=== PATIENT | male | born 1945 | race Caucasian/White ===

== ENCOUNTER 2017-02-08 15:23 | Inpatient (IN) | payer MEDICARE, OTHER ==
[~2017-02-08] VITALS: Ht 188 cm; Wt 108.9 kg
--- NOTE | ~2017-02-08 | OP ---
PATIENT NAME: UBALDO BURDEN MEDICAL RECORD: [id number] :47 LOCATION:[id number] ADMISSION DATE:02/08/17 SURGEON: ELIAS PERALTA MD DATE OF OPERATION: 02/16/2017 PREOPERATIVE DIAGNOSES: Urinary tract infection, Clostridium difficile colitis, acute renal failure, metabolic encephalopathy, non-Hodgkin's lymphoma, in need of IV access for multiple medications including IV antibiotics. POSTOPERATIVE DIAGNOSES: Urinary tract infection, Clostridium difficile colitis, acute renal failure, metabolic encephalopathy, non-Hodgkin's lymphoma, in need of IV access for multiple medications including IV antibiotics. PROCEDURES: Insertion of right internal jugular triple lumen central venous catheter. SURGEON: Elias Peralta MD SILK WASHING MACHINE OPERATOR: None. BLOOD LOSS: Minimal. ANESTHESIA: Local. COMPLICATIONS: None. The risks, possible complications and alternatives to the procedure were explained to the patient. He elects to proceed. The discussion specifically included, but was not limited to, bleeding requiring emergency reoperation, infection, great vessel injury. OPERATIVE COURSE: The patient was seen in his room. He was positioned in the Trendelenburg position. The right neck was sterilely prepped and draped. The local anesthetic was used to infiltrate the skin and subcutaneous tissues at the base of the right neck. The right internal jugular vein was percutaneously accessed in an antegrade fashion. A guidewire passed easily. A small skin damaris was accomplished. A vessel dilator was used to dilate the subcutaneous tract. A 16-cm triple lumen central venous catheter was inserted to the hub. It was sutured in place times 3. All lumens flushed easily and aspirated dark, nonpulsatile blood. A stat portable chest x-ray is pending. The site was sterilely dressed. TRANSINT:[id number] Voice Confirmation ID: [id number] DOCUMENT ID: [id number] ELIAS PERALTA MD CC: [id number] DICTATION DATE: 02/23/171919 COMPUTER GAME TESTER: 02/23/172143 ADM IN [facility] [address] [place] [address]
[2017-02-08 16:50] LABS: HEMATOCRIT 34.7 % (42.0-54.0); HEMOGLOBIN 10.5 g/dL (13.5-17.5); MCH 29.2 pg (26.0-34.0); MCHC 30.3 g/dL (31.0-37.0); MCV 96.4 fL (80.0-100.0); MEAN PLATELET VOLUME 8.7 fL (7.4-10.4); PLATELET COUNT 590 10x3/uL (130-400); RDW 19.7 % (11.5-14.5); WBC 23.6 10x3/uL (4.8-10.8)
[2017-02-08 17:05] LABS: APPEARANCE CLOUDY (CLEAR); BACTERIA FEW /hpf (NONE SEEN); BILIRUBIN NEGATIVE (NEGATIVE); COLOR YELLOW (YELLOW); EPITHELIAL CELLS 0-5 /hpf (0-5); GLUCOSE NEGATIVE (NEGATIVE); KETONE NEGATIVE (NEGATIVE); LEUKOCYTE ESTERASE 2+ (NEGATIVE); MUCUS <1+ /lpf (NONE SEEN); NITRITE NEGATIVE (NEGATIVE); PROTEIN NEGATIVE (NEGATIVE); RED CELLS - URINE 0-5 /hpf (0-5); UROBILINOGEN NORMAL (NORMAL); WHITE CELLS - URINE >50 /hpf (0-5)
[2017-02-08 17:26] LABS: ALBUMIN 2.5 g/dL (3.4-5.0); BILIRUBIN - TOTAL 0.24 mg/dL (0.2-1.3); CARBON DIOXIDE 25.5 mmol/L (21.0-32.0); CREATININE - SERUM 1.1 mg/dL (0.6-1.3)
[2017-02-08 17:27] LABS: ANION GAP 15.5 mmol/L (8-16)
[2017-02-08 17:28] LABS: CALCIUM 13.6 mg/dL (8.5-10.1)
[2017-02-08 18:01] LABS: ANISOCYTOSIS OCC; HYPOCHROMASIA OCC; LYMPHOCYTES 19 % (15-50); MONOCYTES 11 % (2-11); NEUTROPHILS 64 % (40-80); PLATELET ESTIMATE INCREASED; ROULEAUX OCC
--- NOTE | 2017-02-08 19:27 | NUR ---
Patient Name: UBALDO BURDEN Admission Status: ER Accout number: [id number] Admission Date: 02-08-2017 : 1945 Admission Diagnosis: UTI/AMS Attending: SHAE Current LOS: 1 Anticipated DC Date: 02-11-2017 Planned Disposition: Shelter Facility Primary Insurance: Discharge Planning Comments: CM met with patient and spouse for initial dc planning assessment. Patient spouse reports patient was at [facility] (approx. 4 weeks now) receiving rehab prior to admission. He will return there at discharge. Patient talking non-stop, moving his arm in the air. Cant understand what patient is saying. Spouse stated patient has been talking non stop for a week now. CM will continue to follow and will assist with getting patient back to [facility] when medically stable. Airborne Operations: Hannah Rivas RN, [facility] [phone] Is the patient Alert and Oriented? No 0 * PCP Dr. Hoawrd in [place] 0 * Pharmacy [facility] [address] 0 * Preadmission Environment Shelter Facility 0 * Facility Name [facility] 0 * ADLs Total Dependent 0 * List name and contact numbers for known caregivers / representatives who currently or will assist patient after discharge: Gely Burden - spouse - [phone] or [phone] * Additional services required to return to the preadmission environment? No 0 * Can the patient safely return to the preadmission environment? Yes 0 * Has this patient been hospitalized within the prior 30 days at any hospital? No
[2017-02-08 19:44] VITALS: BP 115/63; BMI 30.8
[2017-02-08] MEDS ORDERED: REFRESH TEARS15 ML EACH EYE (20:31)
[2017-02-08] MEDS ORDERED: CARDIZEM60 MG PO (20:33)
[2017-02-08] MEDS ORDERED: HYDROCODONE-APA1 TAB PO (20:35)
[2017-02-08] MEDS ORDERED: PEPCID20 MG PO (20:36)
[2017-02-08] MEDS ORDERED: LEVEMIR100 U/M1 SC (20:37)
[2017-02-08] MEDS ORDERED: SEROQUEL25 MG PO ×2 (20:39→20:46)
[2017-02-08] MEDS ORDERED: CIPRO XR 5500 MG/BOT PO (20:41)
[2017-02-08] MEDS ORDERED: DEBROX OTIC15 ML EACH EAR (20:42)
[2017-02-08] MEDS ORDERED: FLOMAX0.4 MG PO (20:44)
[2017-02-08] MEDS ORDERED: ULTRAM50 MG PO (20:47)
[2017-02-08] MEDS ORDERED: ACETAMINOPHEN325 MG PO (20:49)
[2017-02-08] MEDS ORDERED: XANAX0.25 MG PO (20:50)
[2017-02-09] MEDS ORDERED: ZYLOPRIM100 MG PO (05:09)
[2017-02-09] MEDS ORDERED: CHOLESTYRAMIN4 G/PK1 PO (05:11)
[2017-02-09] MEDS ORDERED: LANOXIN250 MCG PO (05:13)
[2017-02-09] MEDS ORDERED: LISINOPRIL2.5 MG PO (05:14)
[2017-02-09] MEDS ORDERED: VIC-FORTE CAPSUL1 MG PO (05:16)
[2017-02-09] MEDS ORDERED: K-DUR20 MEQ (05:16)
[2017-02-09] MEDS ORDERED: FLOMAX0.4 MG PO (05:18)
[2017-02-09] MEDS ORDERED: ACIDOPHILUS LAC1 CAP PO (05:20)
[2017-02-09] MEDS ORDERED: ZINC50 MG (05:21)
[2017-02-09] MEDS ORDERED: C-500500 MG PO (05:22)
[2017-02-09] MEDS ORDERED: CRANBERRY 400 M1 TA1 PO (05:23)
[2017-02-09] MEDS ORDERED: MYLANTA / MAALO30 ML PO (05:33)
[2017-02-09] MEDS ORDERED: ZOFRAN4 MG PO (05:34)
[2017-02-09] MEDS ORDERED: ULTRAM50 MG PO (05:37)
[2017-02-09] MEDS ORDERED: ACETAMINOPHEN325 MG PO (05:38)
[2017-02-09] MEDS ORDERED: NOVOLIN R100 U/ML (07:35)
[2017-02-09 07:58] VITALS: BP 122/70
--- NOTE | 2017-02-09 08:26 | NUR ---
PT AWAKE AND VERBALLY CALLING OUT IN BED WITH SRX2 PT CONFUSED. WILL CONTINUE TO MONITOR IV TO RIGHT FOREARM PATENT AND INTACT BED AT LOWEST SETTING
[2017-02-09 11:45] VITALS: BP 118/72
[2017-02-09 15:13] VITALS: Ht 188 cm; Wt 108.9 kg
[2017-02-09 15:16] VITALS: BP 144/110
--- NOTE | 2017-02-09 19:49 | NUR ---
PATIENT RESTING IN BED WATCHING TV. CHECKED VITAL SIGNS AND FIXED BEEPING IV. PATIENT DENIES NEED AT THIS TIME. BED IN LOWEST POSITION AND CALL LIGHT WITHIN REACH. ENCOURAGED PATIENT TO CALL IF HE HAS NEEDS.
[2017-02-09 20:00] VITALS: BP 109/46
[2017-02-09 20:48] LABS: BASOPHILS 0.2 % (0.0-2.0); EOSINOPHILS 0.6 % (0-7); HEMATOCRIT 31.5 % (42.0-54.0); HEMOGLOBIN 9.7 g/dL (13.5-17.5); IMMATURE GRANULOCYTES 0.5 % (0-5); MCH 29.4 pg (26.0-34.0); MCHC 30.8 g/dL (31.0-37.0); MCV 95.5 fL (80.0-100.0); MEAN PLATELET VOLUME 8.9 fL (7.4-10.4); MONOCYTES 7.9 % (2-11); NEUTROPHILS 74.8 % (40-80); PLATELET COUNT 550 10x3/uL (130-400); RDW 19.8 % (11.5-14.5); WBC 28.9 10x3/uL (4.8-10.8)
[2017-02-09 21:00] LABS: ALBUMIN 2.2 g/dL (3.4-5.0); BILIRUBIN - TOTAL 0.28 mg/dL (0.2-1.3); CARBON DIOXIDE 24.6 mmol/L (21.0-32.0); POTASSIUM - SERUM 3.8 mmol/L (3.5-5.1); PROTEIN - SERUM 6.9 g/dL (6.4-8.2)
[2017-02-09 21:01] LABS: CREATININE - SERUM 2.4 mg/dL (0.6-1.3)
[2017-02-09 21:02] LABS: ANION GAP 17.2 mmol/L (8-16)
[2017-02-09 21:03] LABS: CALCIUM 12.9 mg/dL (8.5-10.1)
[2017-02-10] VITALS: BP 90/64
[2017-02-10 04:00] VITALS: BP 88/47
[2017-02-10 06:13] LABS: BASOPHILS 0.2 % (0.0-2.0); EOSINOPHILS 0.3 % (0-7); HEMATOCRIT 32.1 % (42.0-54.0); HEMOGLOBIN 9.8 g/dL (13.5-17.5); IMMATURE GRANULOCYTES 0.8 % (0-5); LYMPHOCYTES 14.1 % (15-50); MCH 29.3 pg (26.0-34.0); MCHC 30.5 g/dL (31.0-37.0); MCV 96.1 fL (80.0-100.0); MEAN PLATELET VOLUME 9.4 fL (7.4-10.4); MONOCYTES 7.6 % (2-11); PLATELET COUNT 534 10x3/uL (130-400); RBC 3.34 10x6/uL (4.20-6.10); RDW 19.8 % (11.5-14.5); WBC 36.6 10x3/uL (4.8-10.8)
[2017-02-10 06:40] LABS: ALBUMIN 2.2 g/dL (3.4-5.0); BILIRUBIN - TOTAL 0.3 mg/dL (0.2-1.3); CARBON DIOXIDE 24.6 mmol/L (21.0-32.0); CREATININE - SERUM 2.7 mg/dL (0.6-1.3); POTASSIUM - SERUM 3.6 mmol/L (3.5-5.1); PROTEIN - SERUM 6.9 g/dL (6.4-8.2)
[2017-02-10 06:49] LABS: CALCIUM 12.8 mg/dL (8.5-10.1)
[2017-02-10 08:26] VITALS: BP 109/56
--- NOTE | 2017-02-10 08:52 | NUR ---
DR. CAMARGO CALLED AND CREATININE OF 2.7 REPORTED ALONG WITH HELD CT WITH CONTRAST AT THIS TIME
[2017-02-10 13:13] LABS: AMORPHOUS SEDIMENT <1+ /lpf (NONE SEEN); APPEARANCE TURBID (CLEAR); BACTERIA MODERATE /hpf (NONE SEEN); BILIRUBIN NEGATIVE (NEGATIVE); COLOR YELLOW (YELLOW); EPITHELIAL CELLS 0-5 /hpf (0-5); GLUCOSE NEGATIVE (NEGATIVE); KETONE NEGATIVE (NEGATIVE); LEUKOCYTE ESTERASE 2+ (NEGATIVE); MUCUS <1+ /lpf (NONE SEEN); NITRITE NEGATIVE (NEGATIVE); PROTEIN 1+ mg/dL (NEGATIVE); RED CELLS - URINE 0-5 /hpf (0-5); SPECIFIC GRAVITY 1.015 (1.005-1.020); UROBILINOGEN NORMAL (NORMAL); WHITE CELLS - URINE >50 /hpf (0-5); YEAST >1+ WITH HYPHAE /hpf (NONE SEEN)
--- NOTE | 2017-02-10 15:07 | NUR ---
WOUND CARE CONSULT: PLACED PT ON AN AIR OVERLAY MATTRESS. PER , HE HAS A HISTORY OF PRESSURE INJURIES NOTED BY SCARRING AND REDNESS TO BUTTOCKS/COCCYX/SACRUM. HIS BOTTOM IS RED BUT BLANCHABLE AT THIS TIME. CALMOSEPTINE CREAM ORDERED A MOISTURE PROTECTIVE BARRIER FOR HIS BOTTOM. HE IS BEING TURNED AND REPOSITIONED Q2H. HE IS INCONTINENT OF B&B. WOUND CARE WILL CONTINUE TO MONITOR.
[2017-02-10 16:29] VITALS: BP 94/49
[2017-02-10 16:37] LABS: ERYTHROCYTE SEDIMENTATION RATE 82 mm/hr (0-20)
[2017-02-10 19:00] VITALS: BP 95/63
--- NOTE | 2017-02-10 20:05 | NUR ---
AWAKE,WITH CONFUSION NOTED. SWAYING ARMS AROUND IN AIR. O2 AT 6L PER NC ON. NO DISTRESS NOTED. IV INFUSING TO LEFT FOREARM WIHTOUT REDNESS OR EDEMA NOTED. AT BEDSIDE.
--- NOTE | 2017-02-10 23:40 | NUR ---
PT REMAINS IN ISLOLATION WITH A 1ST STEP MATTERESS IN PLACE. HE IS ASLEEP WITH EASY RESPIRATIONS AND NO O2 IN PLACE. THE BED IS LOW, RAILS UP X'S 2 WITH THE CALL LIGHT AT HAND.
--- NOTE | 2017-02-11 00:42 | NUR ---
TURNED AND POSITIONED. INCONTINENT OF URINE. KALYAN CARE GIVEN.
[2017-02-11 04:00] VITALS: BP 89/49
--- NOTE | 2017-02-11 05:05 | NUR ---
TURNED Q 2 HOURS WIHT KALYAN CARE GIVEN WIHT EACH INCONTIENT EPISIODE. NO DISTRESS NOTED.
[2017-02-11 05:47] LABS: BASOPHILS 0.1 % (0.0-2.0); EOSINOPHILS 0.1 % (0-7); HEMATOCRIT 29.2 % (42.0-54.0); HEMOGLOBIN 8.9 g/dL (13.5-17.5); IMMATURE GRANULOCYTES 0.9 % (0-5); LYMPHOCYTES 9.7 % (15-50); MCH 29.1 pg (26.0-34.0); MCHC 30.5 g/dL (31.0-37.0); MCV 95.4 fL (80.0-100.0); MEAN PLATELET VOLUME 8.9 fL (7.4-10.4); MONOCYTES 4.6 % (2-11); NEUTROPHILS 84.6 % (40-80); PLATELET COUNT 407 10x3/uL (130-400); RBC 3.06 10x6/uL (4.20-6.10); RDW 20.1 % (11.5-14.5); WBC 43.7 10x3/uL (4.8-10.8)
[2017-02-11 06:06] LABS: ALBUMIN 1.8 g/dL (3.4-5.0); BILIRUBIN - TOTAL 0.39 mg/dL (0.2-1.3); CALCIUM 11.2 mg/dL (8.5-10.1); CARBON DIOXIDE 22.8 mmol/L (21.0-32.0); POTASSIUM - SERUM 3.3 mmol/L (3.5-5.1); PROTEIN - SERUM 6.2 g/dL (6.4-8.2)
[2017-02-11 06:24] LABS: ANION GAP 17.5 mmol/L (8-16)
--- NOTE | 2017-02-11 07:17 | NUR ---
PT CONFUSED LAYING IN BED RESP EVEN AND NONLABORED IV TO LEFT FOREARM PATENT AND INTACT WILL CONTINUE TO MONITOR
[2017-02-11 07:56] VITALS: BP 127/48
[2017-02-11 12:14] VITALS: BP 92/43
--- NOTE | 2017-02-11 13:42 | NUR ---
NUTRITION MONITORING & EVAL CHART REVIEWED. SPEECH THERAPY REC'S NOTED. TUBE FEED REC'S 1)GLUCERNA 1.0 @ 15 CC/HR. 2)INCREASE 10 CC/HR Q 8 HOURS TOLERATED TO GOAL RATE 85 CC/HR. 3)50 CC H2O FLUSH Q [address] FOLLOWING
[2017-02-11 15:42] VITALS: BP 95/50
--- NOTE | 2017-02-11 19:30 | NUR ---
PT RECEIVED RESTING IN BED, AT BEDSIDE. PT NONVERBAL WITH COMMUNICATION AT THIS TIME. PT'S STATED SHE DOES NOT WANT PT TO HAVE LACTINEX GRANULES TONIGHT, PT HAS LIQUID FORM SHE WILL BRING TOMORROW AND THAT SHE WILL DISCUSS LACTINEX WITH DOCTOR TOMORROW WELL. BREATH SOUNDS CLEAR BILATERALLY ON PT. NO S/S OF DISTRESS NOTED. ABD SOFT AND NONTENDER UPON PALPATION. BOWEL SOUNDS ACTIVE X4. IV TO LEFT FOREARM WITH D5W @ 150 NOTED TO BE PATENT, IV DRSG CLEAN, DRY, AND INTACT. NO REDNESS OR EDEMA NOTED TO SITE. PT NOTED TO BE NPO. PT CONTINUES WITH CONTACT ISOLATION. BED ALARM ON. CALL LIGHT IN PT REACH.
[2017-02-11 20:00] VITALS: BP 99/55
--- NOTE | 2017-02-11 21:30 | NUR ---
PT RESTING IN BED WITH EYES CLOSED. NO S/S OF DISTRESS NOTED. RESP EVEN AND UNLABORED. IV CONTINUES TO BE PATENT. BED IN LOW POSITION. SIDE RAILS UP X2. CALL LIGHT IN REACH.
--- NOTE | 2017-02-11 23:30 | NUR ---
PT RESTING IN BED WITH EYES CLOSED. NO S/S OF DISTRESS NOTED. RESP EVEN AND UNLABORED. IV CONTINUES TO BE PATENT. SIDE RAILS UP X2. BED IN LOW POSITION.
[2017-02-12] VITALS: BP 83/58
--- NOTE | 2017-02-12 01:30 | NUR ---
PT RESTING IN BED WITH EYES CLOSED. NO S/S OF DISTRESS NOTED. RESP EVEN AND UNLABORED. CALL LIGHT IN PT REACH.
--- NOTE | 2017-02-12 03:26 | NUR ---
PT RESTING IN BED WITH EYES CLOSED. NO S/S OF DISTRESS NOTED. RESP EVEN AND UNLABORED. CALL LIGHT IN REACH. BED IN LOW POSITION. SIDE RAILS UP X2.
[2017-02-12 04:00] VITALS: BP 126/61
--- NOTE | 2017-02-12 04:00 | NUR ---
PATIENT SLEEPING WITH NO DISTRESS NOTED, AGREE WITH REFRIGERATION SERVICE TECHNICIAN ASSESSMENT.
[2017-02-12 04:58] LABS: BASOPHILS 0.1 % (0.0-2.0); EOSINOPHILS 0.5 % (0-7); HEMATOCRIT 29.6 % (42.0-54.0); HEMOGLOBIN 9.2 g/dL (13.5-17.5); IMMATURE GRANULOCYTES 0.9 % (0-5); LYMPHOCYTES 10.8 % (15-50); MCH 29.1 pg (26.0-34.0); MCHC 31.1 g/dL (31.0-37.0); MCV 93.7 fL (80.0-100.0); MEAN PLATELET VOLUME 9.7 fL (7.4-10.4); MONOCYTES 5.2 % (2-11); NEUTROPHILS 82.5 % (40-80); PLATELET COUNT 387 10x3/uL (130-400); RBC 3.16 10x6/uL (4.20-6.10); RDW 19.9 % (11.5-14.5); WBC 39.9 10x3/uL (4.8-10.8)
[2017-02-12 05:06] LABS: ALBUMIN 1.8 g/dL (3.4-5.0); ANION GAP 14.1 mmol/L (8-16); BILIRUBIN - TOTAL 0.28 mg/dL (0.2-1.3); CARBON DIOXIDE 24.2 mmol/L (21.0-32.0); CREATININE - SERUM 2.9 mg/dL (0.6-1.3); POTASSIUM - SERUM 3.3 mmol/L (3.5-5.1); PROTEIN - SERUM 6.4 g/dL (6.4-8.2)
--- NOTE | 2017-02-12 07:30 | NUR ---
RECIEVED PT DURING WALKING ROUNDS. PT RESTING IN BED WITH NO VISABLE SIGNS OF PAIN OR DISCOMFORT AT THIS TIME. ASSESSMENT DONE PER FLOWSHEET. PT ORIENTED TO SELF ONLY. BED IN LOW POSITION AND CALL LIGHT WITHIN REACH. WILL CONTINUE TO MONITOR.
[2017-02-12 07:40] VITALS: BP 93/41
--- NOTE | 2017-02-12 08:10 | NUR ---
FLUSHED IV AT THIS TIME DUE TO FLUIDS BEING TURNED OFF, IV LEAKING. RESITED IV AT THIS TIME TO RIGHT UPPER ARM, 22G, FLUSHED WITH 10CC OF NS AND SECURED WITH OP-SITE AND TAPE. BED RETURNED TO LOW POSITION, AND CALL LIGHT WITHIN REACH. WILL CONTINUE TO MONITOR.
--- NOTE | 2017-02-12 09:15 | NUR ---
SPOKE WITH DR. OLMEDO AT THIS TIME ABOUT PT HOME MED PROBIOTIC, RECIEVED ORDERS FOR PT TO TAKE OWN MEDICATION. LABELED IN PHARMACY AND PLACED IN [place].
--- NOTE | 2017-02-12 09:53 | NUR ---
AWAKE AND ALERT. ORIENTED TO SELF. NO NEEDS NOTED. SKIN IS INTACT WITHOUT REDNESS. EYE CARE PER STAFF. AT BEDSIDE. INCONTINENT OF URIEN. SKIN CARE PER STAFF.
--- NOTE | 2017-02-12 10:30 | NUR ---
RECEIVED ORDERS VIA TO INAND OUT CATH PT FOR UA.
[2017-02-12 12:12] VITALS: BP 100/55
--- NOTE | 2017-02-12 13:05 | NUR ---
CHANGED PT BED DUE TO EPISODE OF INCONTINENCE AT APPROX 1235, IN AND OUT CATH PERFORMED AT THIS TIME, 700CC OUT. URINE SENT TO LAB AT THIS TIME. BED IN LOW POSITION AND CALL LIGHT WITHIN REACH. WILL CONTINUE TO MONITOR.
[2017-02-12 13:30] LABS: APPEARANCE CLOUDY (CLEAR); BACTERIA FEW /hpf (NONE SEEN); BILIRUBIN NEGATIVE (NEGATIVE); COLOR YELLOW (YELLOW); EPITHELIAL CELLS 0-5 /hpf (0-5); GLUCOSE NEGATIVE (NEGATIVE); KETONE NEGATIVE (NEGATIVE); LEUKOCYTE ESTERASE 2+ (NEGATIVE); MUCUS <1+ /lpf (NONE SEEN); NITRITE NEGATIVE (NEGATIVE); PROTEIN NEGATIVE (NEGATIVE); RED CELLS - URINE 0-5 /hpf (0-5); UROBILINOGEN NORMAL (NORMAL); WHITE CELLS - URINE 25-50 /hpf (0-5); YEAST >1+ WITH HYPHAE /hpf (NONE SEEN)
--- NOTE | 2017-02-12 13:50 | NUR ---
RECIEVED VERBAL ORDERS FROM AT THIS TIME FOR A MIDLINE CATH FOR THE INFUSION OF IV FLUIDS. CONSULT TO BE CALLED.
[2017-02-12 15:23] VITALS: BP 90/60
--- NOTE | 2017-02-12 16:00 | NUR ---
WHALNE CATH INSERTED AT THIS TIME PER ORDER FROM , INSERTED WHALEN CATH USING STERILE TECHNIQUE, APPROX 500CC DRAINED AT THIS TIME. BED RETURNED TO LOW POSITION AND CALL LIGHT WITHIN REACH. WILL CONTINUE TO MONITOR.
--- NOTE | 2017-02-12 16:25 | NUR ---
PT TRANSFERED TO ROOM 2240 AT THIS TIME PER REQUEST FROM DR. FROST. WILL CONTINUE TO MONITOR.
--- NOTE | 2017-02-12 19:30 | NUR ---
PT RECEIVED RESTING IN BED. NO S/S OF DISTRESS NOTED AT THIS TIME. PT AROUSES TO VERBAL STIMULI. PT IS NONVERBAL WITH COMMUNICATION, DOES NOT RESPOND APPROPRIATELY. IV NOTED TO RIGHT UPPER ARM, SALINE LOCKED AT THIS TIME.MIDLINE OT LEFT UPPER ARM WITH D5 @ 150 NOTED TO BE PATENT. WHALEN CATHETER IN PLACE, CLEAR MIGUEL COLORED RETURN NOTED. PT NOTED TO BE NPO. CALL LIGHTIN PT REACH.
[2017-02-12 20:00] VITALS: BP 99/51
--- NOTE | 2017-02-12 21:30 | NUR ---
PT RESTING IN BED. PT NOTED TO BE PULLING AT CATHETER, PT REDIRECTED. NO S/S OF DISTRESS NOTED AT THIS TIME. RESPIRATIONS EVEN AND UNLABORED. CALL LIGHT IN PT REACH. BED IN LOW POSITION. SIDE RAILS UP X2.
--- NOTE | 2017-02-12 23:30 | NUR ---
PT RESTING IN BED WITH EYES CLOSED. NO S/S OF DISTRESS NOTED. RESP EVEN AND UNLABORED. CALL LIGHT IN PT REACH. BED IN LOW POSITION. SIDE RAILS UP X2.
[2017-02-13] VITALS: BP 125/57
--- NOTE | 2017-02-13 01:30 | NUR ---
PT RESTING IN BED WITH EYES CLOSED. NO S/S OF DISTRESS NOTED. RESP EVEN AND UNLABORED. PT RECEIVING POTASSIUM PER ELECTROLYTE PROTOCOL. CALL LIGHT IN PT REACH. BED IN LOW POSITION. SIDE RAILS UP X2.
[2017-02-13 04:00] VITALS: BP 111/49
--- NOTE | 2017-02-13 04:00 | NUR ---
PATIENT SLEEPING WITH NO DISTRESS NOTED. CALL LIGHT WITHIN REACH.
[2017-02-13 07:46] LABS: BASOPHILS 0.1 % (0.0-2.0); EOSINOPHILS 1.3 % (0-7); HEMATOCRIT 28.1 % (42.0-54.0); HEMOGLOBIN 8.9 g/dL (13.5-17.5); IMMATURE GRANULOCYTES 0.9 % (0-5); LYMPHOCYTES 13.3 % (15-50); MCH 29.4 pg (26.0-34.0); MCHC 31.7 g/dL (31.0-37.0); MCV 92.7 fL (80.0-100.0); MEAN PLATELET VOLUME 9.3 fL (7.4-10.4); MONOCYTES 6.1 % (2-11); NEUTROPHILS 78.3 % (40-80); PLATELET COUNT 355 10x3/uL (130-400); RBC 3.03 10x6/uL (4.20-6.10); WBC 29.2 10x3/uL (4.8-10.8)
[2017-02-13 08:00] LABS: ANION GAP 16.4 mmol/L (8-16); BILIRUBIN - TOTAL 0.37 mg/dL (0.2-1.3); CALCIUM 10.7 mg/dL (8.5-10.1); CREATININE - SERUM 2.4 mg/dL (0.6-1.3); POTASSIUM - SERUM 3.4 mmol/L (3.5-5.1); PROTEIN - SERUM 6.4 g/dL (6.4-8.2)
--- NOTE | 2017-02-13 08:13 | NUR ---
PATIENT REMAINS IN CONTACT ISOLATION FOR C-DIFF. CONFUSED, NON VERBAL THIS AM. WHALEN CATH DRAINING CLEAR YELLOW URINE. RIGHT UPPER ARM PERIPHERAL LINE RUNNING D.S AT 150CC/HR. PATIENT IS ON ELELCTROLITE PROTOCHOL
[2017-02-13 08:38] VITALS: BP 116/48
--- NOTE | 2017-02-13 10:00 | NUR ---
IN ROOM WITH PATIENT. VERY TENTITIVE AND HELPFUL WITH PATIENT. PATIENT INC. OF STOOL. HAS A WHALEN CATH. HELP THIS NURSE CHANGE PATIENT AND GIVEN KALYAN CARE
[2017-02-13 13:04] VITALS: BP 118/59
--- NOTE | 2017-02-13 13:10 | NUR ---
JUAN BELL, CHARGE NURSE TOLD ABOUT ORDER FOR DOBHOBB INSERTION PER DR. OLMEDO.
--- NOTE | 2017-02-13 13:15 | NUR ---
IMTIAZ RN, ASSOCIATE VICE PRESIDENT CALLED IN REGARDS TO DOBHOFF PLACEMENT.
--- NOTE | 2017-02-13 15:00 | NUR ---
PATIENT IS RESTING QUIETLY WITH EYES CLOSED. NO SIGNS OF DISTRESS NOTED. MIDLINE IV TO LEFT AC INFUSING IVF AT 150ML/HR. WHALEN CATHETER DRAINING TO GRAVITY. BED IN LOWEST POSITION, CALL LIGHT IN REACH. BED RAILS UP X'S 2.
--- NOTE | 2017-02-13 16:00 | NUR ---
TOLD THIS NURSE SHE WAS GOING HOME TO GET SOME REST.
--- NOTE | 2017-02-13 16:04 | NUR ---
ICU NURSE HERE FOR DOBHOFF PLACEMENT.
--- NOTE | 2017-02-13 16:15 | NUR ---
INPUTED ADRIAN MENDEZ AND ORDERED KAVITHA FOR VERIFICATION OF PLACEMENT.
[2017-02-13 16:43] VITALS: BP 112/57
[2017-02-13 20:00] VITALS: BP 121/75
[2017-02-14] VITALS: BP 156/82
--- NOTE | 2017-02-14 02:22 | NUR ---
RESTING WITH EYES CLOSED, NO DISTRESS NOTED, CL IN REACH
[2017-02-14 04:00] VITALS: BP 125/64
--- NOTE | 2017-02-14 04:00 | NUR ---
PATIENT SLEEPING WITH NO DISTRESS NOTED. CALL LIGHT WITHIN REACH.
--- NOTE | 2017-02-14 06:33 | NUR ---
ADVANCED DOBB ANDREA BY 20 CM TO 75 CM PER RADIOLOGY RECOMMENDATION. NO TF STARTED YET. KUB ORDERED TO VERIFY PLACEMENT.
[2017-02-14 06:39] LABS: BASOPHILS 0.1 % (0.0-2.0); EOSINOPHILS 1.6 % (0-7); HEMATOCRIT 30.4 % (42.0-54.0); HEMOGLOBIN 9.7 g/dL (13.5-17.5); IMMATURE GRANULOCYTES 0.7 % (0-5); LYMPHOCYTES 14.8 % (15-50); MCH 28.9 pg (26.0-34.0); MCHC 31.9 g/dL (31.0-37.0); MCV 90.5 fL (80.0-100.0); MEAN PLATELET VOLUME 9.8 fL (7.4-10.4); MONOCYTES 7.1 % (2-11); NEUTROPHILS 75.7 % (40-80); PLATELET COUNT 379 10x3/uL (130-400); RBC 3.36 10x6/uL (4.20-6.10); RDW 19.6 % (11.5-14.5); WBC 28.4 10x3/uL (4.8-10.8)
[2017-02-14 07:02] LABS: ALBUMIN 2.2 g/dL (3.4-5.0); ANION GAP 15.8 mmol/L (8-16); BILIRUBIN - TOTAL 0.44 mg/dL (0.2-1.3); CALCIUM 10.8 mg/dL (8.5-10.1); CARBON DIOXIDE 23.9 mmol/L (21.0-32.0); CREATININE - SERUM 2.3 mg/dL (0.6-1.3); PROTEIN - SERUM 6.8 g/dL (6.4-8.2)
[2017-02-14 07:04] LABS: POTASSIUM - SERUM 2.7 mmol/L (3.5-5.1)
--- NOTE | 2017-02-14 07:15 | NUR ---
PATIENT IN BED WITH NO COMPLAINTS OR SIGNS OF DISTRESS. CALL LIGHT WITHIN REACH.
--- NOTE | 2017-02-14 07:30 | NUR ---
REPORT RECEIVED FROM ROAD WORKER NURSE. CALL LIGHT IN REACH.
--- NOTE | 2017-02-14 08:00 | NUR ---
ASSESSMENT COMPLETED. CALL LIGHT IN REACH. WILL CONTINUE WITH PLAN OF CARE.
[2017-02-14 08:35] VITALS: BP 96/50
--- NOTE | 2017-02-14 10:49 | NUR ---
AM MEDS ADMINISTERED. AT BEDSIDE. CALL LIGHT IN REACH.
[2017-02-14 11:23] VITALS: BP 108/56
--- NOTE | 2017-02-14 12:20 | NUR ---
INCONTINENT OF STOOL. CLEANED PER MYSELF AND FIELD FOREMAN. REPOSITIONED FOR COMFORT.
--- NOTE | 2017-02-14 14:15 | NUR ---
REPOSITIONED FOR COMFORT. CALL LIGHT IN REACH.
--- NOTE | 2017-02-14 14:33 | NUR ---
TUBE FEEDING INITIATED @ 30 CC/HR.
[2017-02-14 15:50] VITALS: BP 110/62
--- NOTE | 2017-02-14 16:20 | NUR ---
REPOSITIONED FOR COMFORT. CALL LIGHT IN REACH.
--- NOTE | 2017-02-14 17:00 | NUR ---
3RD BAG OF KCL INITIATED. EVENING MEDS ADMINISTERED. CALL LIGHT IN REACH.
--- NOTE | 2017-02-14 18:04 | NUR ---
NO CHANGES IN INITIAL ASSESSMENT. CALL LIGHT IN REACH. WILL CONTINUE WITH PLAN OF CARE.
[2017-02-14 19:00] VITALS: BP 106/66
--- NOTE | 2017-02-15 | NUR ---
LATE ENTRY: ASSIT WITH LINEN CHANGE AND INCONTINENCE CARE. DOBHOFF TUBE NOTED TO BE @ 25 JOLEEN & ATTACHMENT DEVICE LOOSENING FROM NOSE. TUBE FEEDS STOPPED. REVIEW OF CHART REVEALS TUBE PLACEMENT TO BE AT 75 JOLEEN. PAPER SLITTER NOTIFIED AND DOBHOFF REMOVED. ICU AGREED TO REPLACE DOBHOFF. PATIENT IN NO APPARENT DISTRESS.
--- NOTE | 2017-02-15 00:30 | NUR ---
PT IN BED WITH NO DISTRESS AT THIS TIME. RESPIRATIONS ARE EVEN AND UNLABORED. SIDE RAILS ARE UP X 2. BED IS IN LOWEST POSITION. CALL LIGHT IS IN REACH.
[2017-02-15 04:00] VITALS: BP 100/57
[2017-02-15 04:51] LABS: BASOPHILS 0.1 % (0.0-2.0); EOSINOPHILS 2.9 % (0-7); HEMATOCRIT 29.3 % (42.0-54.0); HEMOGLOBIN 9.5 g/dL (13.5-17.5); IMMATURE GRANULOCYTES 1.1 % (0-5); LYMPHOCYTES 11.6 % (15-50); MCH 29.1 pg (26.0-34.0); MCHC 32.4 g/dL (31.0-37.0); MCV 89.9 fL (80.0-100.0); MEAN PLATELET VOLUME 9.8 fL (7.4-10.4); MONOCYTES 7.3 % (2-11); PLATELET COUNT 357 10x3/uL (130-400); RBC 3.26 10x6/uL (4.20-6.10); RDW 19.3 % (11.5-14.5); WBC 30.6 10x3/uL (4.8-10.8)
[2017-02-15 05:01] LABS: ANION GAP 13.9 mmol/L (8-16); CALCIUM 10.6 mg/dL (8.5-10.1); CREATININE - SERUM 1.9 mg/dL (0.6-1.3)
[2017-02-15 05:06] LABS: POTASSIUM - SERUM 2.9 mmol/L (3.5-5.1)
[2017-02-15 08:04] VITALS: BP 124/69
[2017-02-15 12:11] VITALS: BP 116/64
--- NOTE | 2017-02-15 13:11 | NUR ---
NUTRITION MONITORING & EVAL CHART REVIEWED. PT REMAINS IN ISOLATION. SPOKE WITH NURSING. ORDERED GLUCERNA 1.0 TUBE FEEDS. ENTERED NURSING MESSAGE TO START TUBE FEEDS. RD FOLLOWING
--- NOTE | 2017-02-15 13:44 | NUR ---
AWAKE AND ALERT. ORIENTED TO SELF. LUNGS ARE CLEAR BILATERALLY, NO COUGH NOTED. SKIN IS INTACT WITHOUT REDNESS. NG TO RIGHT NARE PATENT BUT CLAMPED OFF AT THIS TIME. WHALEN PATENT WITH CLEAR YELLOW URINE. NO NEEDS NOTED.
[2017-02-15 15:10] VITALS: BP 70/37
--- NOTE | 2017-02-15 18:00 | NUR ---
PT HAS HAD FEBRILE EPISODE TODAY AT BEDSIDE. GIVEN TYLENOL PER ORDER. DOBHOFF OUT NGT IN PLACE PER VERIFIED KUB FEEDING STARTED AT 30 CC HR GLUCERNA 1.0 TOLERATING WELL
--- NOTE | 2017-02-15 19:52 | NUR ---
PLYWOOD LAYUP LINE CORE FEEDER BROUGHT TO MY ATTENTION THAT THE PATIENT WAS RUNNING 104.1 TEMP. ADMINISTERED ACET. 650MG PER NG-TUBE. BED IN LOWEST POSITION AND CALL LIGHT WITHIN REACH.
[2017-02-16] VITALS: BP 123/64
[2017-02-16 04:00] VITALS: BP 109/59
[2017-02-16 06:35] LABS: BASOPHILS 0.2 % (0.0-2.0); EOSINOPHILS 0.5 % (0-7); HEMATOCRIT 29.9 % (42.0-54.0); HEMOGLOBIN 9.6 g/dL (13.5-17.5); LYMPHOCYTES 11.7 % (15-50); MCH 29.6 pg (26.0-34.0); MCHC 32.1 g/dL (31.0-37.0); MCV 92.3 fL (80.0-100.0); MEAN PLATELET VOLUME 9.9 fL (7.4-10.4); MONOCYTES 6.2 % (2-11); NEUTROPHILS 79.4 % (40-80); PLATELET COUNT 310 10x3/uL (130-400); RBC 3.24 10x6/uL (4.20-6.10); RDW 20.1 % (11.5-14.5); WBC 24.4 10x3/uL (4.8-10.8)
[2017-02-16 06:57] LABS: CALCIUM 9.6 mg/dL (8.5-10.1); CARBON DIOXIDE 20.4 mmol/L (21.0-32.0); CREATININE - SERUM 1.9 mg/dL (0.6-1.3); MAGNESIUM - SERUM 1.4 mg/dL (1.8-2.4); POTASSIUM - SERUM 3.4 mmol/L (3.5-5.1)
--- NOTE | 2017-02-16 08:00 | NUR ---
PT ALERT TO NAME ONLY UNABLE TO EXPRESS NEEDS OR WANTS TO STAFF PT HAS MIDLINE TO LEFT UPPER ARM. DRESSING IN TACT. WHALEN PATENT TO DARK YELLOW URINE PER GRAVITY FLOW.
[2017-02-16 08:39] VITALS: BP 129/58
[2017-02-16 11:43] VITALS: BP 133/74
[2017-02-16 17:04] VITALS: BP 114/58
--- NOTE | 2017-02-16 17:07 | NUR ---
Received order for PICC on patient that recently removed midline IV catheter. On arrival, right upper arm with warm,reddened area, will attempt placement in left upper arm. Left upper arm with bruised area from where midline removed by patient. Chloraprep wipes x 2 to arm. Basilic vein identified using site rite ultrasound, Sterile prep and drape and 1% xylocaine to area. Vein accessed, unable to insert PICC beyond 15 cm. PICC removed. 20 gauge IV placed in left antecubital. Katie Harding RN
--- NOTE | 2017-02-16 18:05 | NUR ---
PT PULLED MIDLINE OUT ORDER WAS OBTAINED FOR PICC VASCULAR ACCESS NIRSE UNABLE TO REPLACE NO SUCESS NOTED THIS NURSE SITED IV TO LEFT UPPER ARM 22 GA X 4 STICKS. AT BEDSIDE.
[2017-02-16 19:00] VITALS: BP 97/50
--- NOTE | 2017-02-16 19:30 | NUR ---
ASSISTED DR. PERALTA WITH CENTRAL PLACEMENT AT BED SIDE. PATIENT NO RESTING QUIETLY AT THIS TIME. CENTRAL LINE DRESSED PER POLICY. PLACEMENT VERIFICATION ORDER PLACE AND AWAITING RESULTS. NO SIGNS OF DISTRESS NOTED AT THIS TIME. BED LOW. CALL LIGHT IN REACH
[2017-02-17] VITALS: BP 91/60
[2017-02-17 04:00] VITALS: BP 73/40
--- NOTE | 2017-02-17 04:00 | NUR ---
PATIENT SLEEPING WITH NO DISTRESS NOTED. AGREE WITH MUSICAL STRING MAKER ASSESSMENT.
[2017-02-17 06:08] LABS: HEMATOCRIT 26.1 % (42.0-54.0); HEMOGLOBIN 8.3 g/dL (13.5-17.5); RBC 2.93 10x6/uL (4.20-6.10); WBC 23.4 10x3/uL (4.8-10.8)
[2017-02-17 06:09] LABS: BASOPHILS 0.1 % (0.0-2.0); EOSINOPHILS 2.4 % (0-7); IMMATURE GRANULOCYTES 0.9 % (0-5); LYMPHOCYTES 11.5 % (15-50); MCH 28.3 pg (26.0-34.0); MCHC 31.8 g/dL (31.0-37.0); MCV 89.1 fL (80.0-100.0); MEAN PLATELET VOLUME 9.6 fL (7.4-10.4); MONOCYTES 6.6 % (2-11); NEUTROPHILS 78.5 % (40-80); PLATELET COUNT 273 10x3/uL (130-400); RDW 19.7 % (11.5-14.5)
[2017-02-17 06:11] LABS: CALCIUM 8.9 mg/dL (8.5-10.1); CARBON DIOXIDE 21.7 mmol/L (21.0-32.0); CREATININE - SERUM 1.7 mg/dL (0.6-1.3); MAGNESIUM - SERUM 1.4 mg/dL (1.8-2.4); PHOSPHOROUS 2.4 mg/dL (2.5-4.9)
[2017-02-17 06:15] LABS: ANION GAP 15.3 mmol/L (8-16)
--- NOTE | 2017-02-17 07:48 | NUR ---
PT CONFUSED IN BED WITH BED AT LOWEST SETTING AND SRX3 RESP EVEN AND NONLABORED CENTRAL LINE TO RIGHT SUBCLAVIAN PATENT AND INTACT WILL CONTINUE TO MONITOR
[2017-02-17 08:33] VITALS: BP 104/57
[2017-02-17 12:00] VITALS: BP 90/51
--- NOTE | 2017-02-17 14:37 | NUR ---
NUTRITION MONITORING & EVAL CHART REVIEWED. PT REMAINS IN ISOLATION. SPOKE WITH NURSING. PT TOLERATING GLUCERNA 1.0 @ 30 CC/HR. TO INCREASE TO 40 CC/HR WITH EVENTUAL GOAL RATE 85 CC/HR TOLERATED. RD FOLLOWING
--- NOTE | 2017-02-17 19:43 | NUR ---
LYING QUIETLY.NO DISTRESS NOTED. NG PATENT WITH GLUCERNA 1.0 INGUSING AT 40 CC/HR. RIGHT SUBCLAVIAN INTACT WIHTOUT REDNESS OR EDEMA. WHALEN PATENT AND DRAINING CL YELLOW URINE. CL IN REACH. SR UP X 3.
[2017-02-17 20:00] VITALS: BP 106/51
[2017-02-18] VITALS: BP 96/61
--- NOTE | 2017-02-18 02:04 | NUR ---
RESTING QUIETLY. NO DISTRESS NOTED. POSITIONED FOR COMFORT.
--- NOTE | 2017-02-18 03:04 | NUR ---
PATIENT ON 1ST STEP OVERLAY. GLUCERNA INFUSING THROUGH NG TUBE. WHALEN SECURED WITH STATLOCK AND DRAINING TO GRAVITY. 0 S/S OF DISTRESS.
[2017-02-18 04:00] VITALS: BP 113/38; BP 113/57
--- NOTE | 2017-02-18 05:32 | NUR ---
POAITIONED FOR COMFORT. CL IN REACH.
[2017-02-18 06:16] LABS: BASOPHILS 0.1 % (0.0-2.0); HEMATOCRIT 27.2 % (42.0-54.0); HEMOGLOBIN 8.9 g/dL (13.5-17.5); IMMATURE GRANULOCYTES 1.2 % (0-5); LYMPHOCYTES 14.7 % (15-50); MCH 29.1 pg (26.0-34.0); MCHC 32.7 g/dL (31.0-37.0); MCV 88.9 fL (80.0-100.0); MEAN PLATELET VOLUME 9.7 fL (7.4-10.4); MONOCYTES 7.6 % (2-11); NEUTROPHILS 72.4 % (40-80); PLATELET COUNT 334 10x3/uL (130-400); RBC 3.06 10x6/uL (4.20-6.10); RDW 20.3 % (11.5-14.5); WBC 25.5 10x3/uL (4.8-10.8)
[2017-02-18 06:32] LABS: ANION GAP 14.9 mmol/L (8-16); CALCIUM 8.9 mg/dL (8.5-10.1); CARBON DIOXIDE 21.4 mmol/L (21.0-32.0); CREATININE - SERUM 1.5 mg/dL (0.6-1.3); MAGNESIUM - SERUM 1.7 mg/dL (1.8-2.4); PHOSPHOROUS 2.5 mg/dL (2.5-4.9); POTASSIUM - SERUM 3.3 mmol/L (3.5-5.1)
[2017-02-18 08:20] VITALS: BP 100/62
[2017-02-18 12:36] VITALS: BP 128/62
[2017-02-18 16:08] VITALS: BP 107/53
[2017-02-18 20:00] VITALS: BP 108/69
[2017-02-19] VITALS: BP 106/63
[2017-02-19 02:17] LABS: BASOPHILS 0.1 % (0.0-2.0); HEMOGLOBIN 7.8 g/dL (13.5-17.5); IMMATURE GRANULOCYTES 0.9 % (0-5); MCH 28.9 pg (26.0-34.0); MCHC 32.5 g/dL (31.0-37.0); MCV 88.9 fL (80.0-100.0); MEAN PLATELET VOLUME 9.7 fL (7.4-10.4); MONOCYTES 5.1 % (2-11); NEUTROPHILS 74.9 % (40-80); PLATELET COUNT 325 10x3/uL (130-400); RDW 20.1 % (11.5-14.5)
[2017-02-19 02:30] LABS: ANION GAP 14.6 mmol/L (8-16); CALCIUM 8.2 mg/dL (8.5-10.1); CREATININE - SERUM 1.2 mg/dL (0.6-1.3); MAGNESIUM - SERUM 1.7 mg/dL (1.8-2.4); PHOSPHOROUS 2.2 mg/dL (2.5-4.9); POTASSIUM - SERUM 3.6 mmol/L (3.5-5.1)
[2017-02-19 02:36] LABS: APTT 43.1 SECONDS (22.8-39.4); INR 1.53 (0.85-1.17); PROTIME 18.3 SECONDS (11.6-15.0)
[2017-02-19 05:00] VITALS: BP 114/62
--- NOTE | 2017-02-19 07:30 | NUR ---
RECIEVED PT DURING WALKING ROUNDS. PT RESTING IN BED WITH HANDS AROUND HEAD, PT CONTINUE TO SAY "BY FOREHEAD, MY FOREHEAD" PT STATED SHE WAS GOING TO ATTEMPT TO HELP THE PT RELAX. ASSESSMENT DONE PER FLOWSHEET. BED IN LOW POSITION AND CALL LIGHT WITHIN REACH. WILL CONTINUE TO MONITOR.
[2017-02-19 07:35] VITALS: BP 115/62
--- NOTE | 2017-02-19 09:20 | NUR ---
RECIEVED PTT, FOLLOWED PROTOCOL, DOCUMENTED IN HEPARIN FLOWSHEET.
--- NOTE | 2017-02-19 10:20 | NUR ---
PT WAS ABLE TO STATE HIS LOCATION, HIS ADDRESS, AND RECALL LIFE EVENTS WHEN ASKED BY HIS . PT WAS ALSO ABLE TO CALL ME BY NAME. SAYS THIS IS MUCH IMPROVEMENT FROM WHERE HE HAS BEEN. MEDICATIONS GIVEN VIA NG TUBE, PT TOLERATED WELL. BED IN LOW POSITION AND CALL LIGHT WITHIN REACH. WILL CONTINUE TO MONITOR.
[2017-02-19 11:35] VITALS: BP 120/68
--- NOTE | 2017-02-19 13:13 | NUR ---
Nutrition Follow Up: Chart reviewed and spoke with nursing. Pt is tolerating current TF rate of 50 ml/hr. Labs noted - Glucose elevated. Meds noted including Solumedrol, Albumin, Flagyl and D5 1/2 NS KCl @ 75 ml/hr (providing 306 kcal/d). Water flushes now 50 ml/hr per MD. Rec continue increasing TF to goal rate of 85 ml/hr. Rec H20 flushes of 25 ml/hr. Rec d/c D5 1/[address] will continue to monitor pt progress.
--- NOTE | 2017-02-19 13:15 | NUR ---
BEGAN ELECTROLYTE REPLACEMENT AT THIS TIME FOR PHOS AND MAG. CLEANED PT LINEN AND CHANGED DRESSING TO BUTTOCK AT THIS TIME. BED IN LOW POSITION AND CALL LIGHT WITHIN REACH. WILL CONTINUE TO MONITOR.
[2017-02-19 15:55] VITALS: BP 109/57
--- NOTE | 2017-02-19 17:00 | NUR ---
PATIENT IN BED WITH NO COMPLAINTS AT THIS TIME. FAMILY AT BEDSIDE. CALL LIGHT WITHIN REACH.
--- NOTE | 2017-02-19 19:35 | NUR ---
RECIEVED SHIFT REPORT. PT IS LYING IN BED. PT IS ALERT AND ORIENTED BUT HAS SOME CONFUSION AT TIMES. WHALEN IS DRAINING URINE BY GRAITY. PT REQUIRES ASSISTANCE TURNING IN BED FOR COMFORT AND SKIN CARE. ISOLATION PRECAUTIONS IN PLACE. IV IS PATENT AND FLUIDS ARE RUNNING PER ORDER. PT DENIES ANY PAIN AT THIS TIME. NGT TO LEFT NARE PATENT AND FEED RUNNING PER ORDER. CPAP ON AT THIS TIME. NO NEEDS ARE VERBALIZED AT THIS TIME. WILL CONTINUE TO MONITOR. SIDE RAILS ARE UP X 2. BED IS IN LOWEST POSITION. CALL LIGHT IS WITHIN REACH.
[2017-02-19 20:00] VITALS: BP 103/61
--- NOTE | 2017-02-19 21:00 | NUR ---
SHIFT ASSESSMENT COMPLETED. NIGHT MEDS GIVEN WITH NO PROBLEMS. NO NEEDS ARE VOICED. WILL MONITOR. SIDE RAILS X 2. BED LOW. CALL LIGHT IN REACH.
[2017-02-20] VITALS (12 sets, daily range): BP systolic 108–149; BP diastolic 56–68
[2017-02-20 06:06] LABS: BASOPHILS 0 % (0.0-2.0); EOSINOPHILS 0 % (0-7); HEMATOCRIT 23.4 % (42.0-54.0); HEMOGLOBIN 7.6 g/dL (13.5-17.5); IMMATURE GRANULOCYTES 0.7 % (0-5); MCH 28.5 pg (26.0-34.0); MCHC 32.5 g/dL (31.0-37.0); MCV 87.6 fL (80.0-100.0); MEAN PLATELET VOLUME 9.7 fL (7.4-10.4); MONOCYTES 3.2 % (2-11); NEUTROPHILS 89.1 % (40-80); PLATELET COUNT 349 10x3/uL (130-400); RBC 2.67 10x6/uL (4.20-6.10); RDW 19.8 % (11.5-14.5); WBC 28.2 10x3/uL (4.8-10.8)
[2017-02-20 06:14] LABS: ANION GAP 13.5 mmol/L (8-16); CALCIUM 7.7 mg/dL (8.5-10.1); CARBON DIOXIDE 18.7 mmol/L (21.0-32.0); CREATININE - SERUM 1.1 mg/dL (0.6-1.3); MAGNESIUM - SERUM 1.8 mg/dL (1.8-2.4)
[2017-02-20 06:18] LABS: POTASSIUM - SERUM 4.2 mmol/L (3.5-5.1)
--- NOTE | 2017-02-20 08:00 | NUR ---
THRASHING YELLING FOR HELP, STATES HE JUST WANTS SOME COMPANY, CHANGED SHEETS AND CLEANED UP, WILL CONTINUE TO MONITOR
--- NOTE | 2017-02-20 09:00 | NUR ---
AT BEDISDE, MORE ALERT, TALKING, COMPLETELY CALMED DOWN, DENEIS NEEDS
--- NOTE | 2017-02-20 13:20 | NUR ---
AWAKE AND ALERT AT THIS TIME. ON LEFT SIDE FOR COMFORT. AIR MATRESS AND SVETA MAT IN USE. REMAINS IN ISOLATION. HEPARIN RATE INCREASED TO 16 ML/HR. NURSE AT BEDSIDE AND CALL LIGHT IN REACH. WILL CONTINUE WITH PLAN OF CARE.
--- NOTE | 2017-02-20 20:00 | NUR ---
REC'D IN BED AWAKE AND ALERT TO SELF ONLY WITH NOTED CONFUSION. RESP EVEN AND UNLABORED WITH NO DISTRESS NOTED. ASSESSMENT COMPLETED AT THIS TIME. NO C/O NOTED OR VOICED. WHALEN REMAIN INTACT WITH URINE NOTED TO TUBING AND COLLECTIION DEVICE.
[2017-02-21] VITALS (12 sets, daily range): BP systolic 103–155; BP diastolic 51–88
--- NOTE | 2017-02-21 01:00 | NUR ---
ONE UNIT OF PRBC WAS INITIATED AT THIS TIME VIA RN. NO DISTRESS NOTED. WILL CONTINUE TO OBSERVE FOR NEEDS. C/L IN REACH AT BEDSIDE.
--- NOTE | 2017-02-21 02:03 | NUR ---
LYING IN BED WITH EYES CLOSED, BLOOD INFUSING, NO DISTRESS NOTED, SAFETY AND ISOLATION PRECAUTIONS IN PLACE
[2017-02-21 06:00] LABS: BASOPHILS 0 % (0.0-2.0); EOSINOPHILS 0 % (0-7); HEMATOCRIT 30.1 % (42.0-54.0); HEMOGLOBIN 10.2 g/dL (13.5-17.5); IMMATURE GRANULOCYTES 1.6 % (0-5); LYMPHOCYTES 4.7 % (15-50); MCH 29.1 pg (26.0-34.0); MCHC 33.9 g/dL (31.0-37.0); MEAN PLATELET VOLUME 9.7 fL (7.4-10.4); MONOCYTES 4.7 % (2-11); PLATELET COUNT 524 10x3/uL (130-400); RDW 19.5 % (11.5-14.5)
[2017-02-21 06:34] LABS: CALC OSMOLALITY 288 mosm/kg (275-300); CALCIUM 7.6 mg/dL (8.5-10.1); CARBON DIOXIDE 18.3 mmol/L (21.0-32.0); CHLORIDE - SERUM 102 mmol/L (98-107); FERRITIN 335 ng/mL (3-244); GLUCOSE 324 mg/dL (74-106); MAGNESIUM - SERUM 1.4 mg/dL (1.8-2.4); SODIUM 135 mmol/L (136-145); UREA NITROGEN 29 mg/dL (7-18); eGFR NON AFRICAN AMERICAN 78 mL/min (90-120)
[2017-02-21 06:35] LABS: PHOSPHOROUS 1.8 mg/dL (2.5-4.9); POTASSIUM - SERUM 3.2 mmol/L (3.5-5.1)
[2017-02-21 06:45] LABS: % SATURATION 86 % (15-55); IRON 91 ug/dl (35-150); TOTAL IRON BIND CAPACITY 105 ug/dl (260-445)
[2017-02-21 06:46] LABS: UNSAT IRON BIND CAPACITY 14 ug/dl (150-375)
--- NOTE | 2017-02-21 07:55 | NUR ---
SLEEPING, EASILY AROUSED, BED LOWEST POSITION, AT BEDISDE, DENIES NEEDS, ASSESSMENT COMPLETE, WILL CONTINUE TO MONITOR
--- NOTE | 2017-02-21 15:30 | NUR ---
SPEECH THERAPIST EVALUATING PATIENT AT THIS TIME. DENIES NEEDS. RESPIRATIONS EVEN AND NON LABORED. CALL LIGHT IN REACH, WILL CONTINUE WITH PLAN OF CARE.
--- NOTE | 2017-02-21 20:00 | NUR ---
IN BED WITH EYES CLOSED AT THIS TIME EASILY AROUSED WHEN NAME IS CALLED. NOTED CONFUSION ONCE AWAKE PT CONTINUE TO YELL OUT. REDIRECTION GIVEN WITH NO SUCCESS NOTED. REMAIN ON CONTACT ISOLATION D/T C-DIFF. ASSESSMENT COMPLETED. C/L IN REACH AT BEDSIDE.
[2017-02-22] VITALS: BP 147/86
--- NOTE | 2017-02-22 02:08 | NUR ---
EYES CLOSED RESPIRATIONS WITH EASE AND UNLABORED. SR UP X2 CALL LIGHT WITHIN REACH.
[2017-02-22 05:46] LABS: BASOPHILS 0 % (0.0-2.0); EOSINOPHILS 0 % (0-7); HEMATOCRIT 30.5 % (42.0-54.0); HEMOGLOBIN 10.1 g/dL (13.5-17.5); IMMATURE GRANULOCYTES 1.5 % (0-5); LYMPHOCYTES 6.5 % (15-50); MCH 28.5 pg (26.0-34.0); MCHC 33.1 g/dL (31.0-37.0); MCV 86.2 fL (80.0-100.0); MEAN PLATELET VOLUME 10.3 fL (7.4-10.4); MONOCYTES 4.9 % (2-11); NEUTROPHILS 87.1 % (40-80); PLATELET COUNT 578 10x3/uL (130-400); RBC 3.54 10x6/uL (4.20-6.10); RDW 20.4 % (11.5-14.5); WBC 42.6 10x3/uL (4.8-10.8)
[2017-02-22 06:19] LABS: CALC OSMOLALITY 288 mosm/kg (275-300); CALCIUM 7.5 mg/dL (8.5-10.1); CARBON DIOXIDE 20.3 mmol/L (21.0-32.0); CHLORIDE - SERUM 103 mmol/L (98-107); CREATININE - SERUM 0.9 mg/dL (0.6-1.3); GLUCOSE 324 mg/dL (74-106); MAGNESIUM - SERUM 1.2 mg/dL (1.8-2.4); PHOSPHOROUS 1.8 mg/dL (2.5-4.9); POTASSIUM - SERUM 3.1 mmol/L (3.5-5.1); SODIUM 136 mmol/L (136-145); UREA NITROGEN 24 mg/dL (7-18); eGFR NON AFRICAN AMERICAN 89 mL/min (90-120)
[2017-02-22 08:06] VITALS: BP 143/66
--- NOTE | 2017-02-22 08:20 | NUR ---
PT AOX2 OCCASIONALLY X3. RESP EVEN AND NONLABORED PT IN FOR SEVERE UTI WITH IV ANTIBIOTICS. IV IN RIGHT EJ PATENT AND INTACT. SRX2 CALL LIGHT WITH IN REACH WILL CONTINUE TO MONITOR
--- NOTE | 2017-02-22 08:44 | NUR ---
PT ASSESSMENT COMPLETE. AWAKE AND ALERT ORIENTED TO NAME ONLY REORIENTED TO TIME AND PLACE. PT STATES I AM VERY SAD. PT STATES THAT HE IS LONLY WITH NO ONE IN THE ROOM. NO ACUTE DISTRESS NOTED NGT IN PLACE CLAMPED RIJTL NOTED PATENT OT HEPARIN GTT PER PROTOCOL WELL MAINTENCE IVF
[2017-02-22 11:21] VITALS: BP 132/78
[2017-02-22 15:20] VITALS: BP 128/72
--- NOTE | 2017-02-22 15:29 | NUR ---
NUTRITION MONITORING & EVAL CHART REVIEWED. TUBE FEEDS OFF AND PT CLEARED FOR DIET BY SPEECH. REMOVED RENAL DIET RESTRICTIONS NEPHROLOGY SIGNING OFF. RD FOLLOWING
[2017-02-22 19:00] VITALS: BP 129/67
--- NOTE | 2017-02-22 19:00 | NUR ---
PATIENT SLEEPING ON RIGHT SIDE. HOB 40 DEGREES. RR EVEN AND UNLABORED. 0 S/S OF DISTRESS. RIGHT IJ PATENT WITH DRESSING CDI. WHALEN SECURED WITH STATLOCK AND DRAINING TO GRAVITY. MEPILEX TO BUTTOCKS CDI. SVETA MAT ON. SRX2. BED LOW. CALL LIGHT WITHIN REACH.
--- NOTE | 2017-02-22 20:00 | NUR ---
PTT RESULTS 67.0. NO CHANGE PER PROTOCOL. WILL RECHECK IN AM.
--- NOTE | 2017-02-22 22:30 | NUR ---
ASSESSMENT COMPLETE. NIGHTTIME MEDS GIVEN. PATIENT HAD INCONTINENT EPISODE OF BOWEL. LINENS AND GOWN CHANGED. MEPILEX TO BUTTOCKS CHANGED. TURNED PATIENT TO LEFT.
[2017-02-23 01:32] VITALS: BP 124/61
--- NOTE | 2017-02-23 02:00 | NUR ---
PATIENT AWOKE VERY CONFUSED. INSISTING TO TALK TO . CALLED AND TRANSFERRED INTO ROOM. SPOKE WITH PATIENT ABOUT 5 MINUTES. PATIENT TOLD HE WOULD TRY TO SLEEP. REPOSITIONED PATIENT TO BACK. WILL CONTINUE TO MONITOR.
[2017-02-23 04:00] VITALS: BP 140/70
--- NOTE | 2017-02-23 04:28 | NUR ---
PATIENT SLEEPING WITH NO DISTRESS NOTED.
[2017-02-23 05:55] LABS: BASOPHILS 0 % (0.0-2.0); EOSINOPHILS 0 % (0-7); HEMATOCRIT 27.7 % (42.0-54.0); HEMOGLOBIN 9.3 g/dL (13.5-17.5); IMMATURE GRANULOCYTES 1.3 % (0-5); LYMPHOCYTES 6.6 % (15-50); MCH 28.8 pg (26.0-34.0); MCHC 33.6 g/dL (31.0-37.0); MCV 85.8 fL (80.0-100.0); MONOCYTES 4.4 % (2-11); NEUTROPHILS 87.7 % (40-80); PLATELET COUNT 543 10x3/uL (130-400); RBC 3.23 10x6/uL (4.20-6.10); RDW 20.2 % (11.5-14.5); WBC 43.9 10x3/uL (4.8-10.8)
[2017-02-23 06:25] LABS: CARBON DIOXIDE 19.3 mmol/L (21.0-32.0); CHLORIDE - SERUM 103 mmol/L (98-107); CREATININE - SERUM 0.8 mg/dL (0.6-1.3); PHOSPHOROUS 1.8 mg/dL (2.5-4.9); SODIUM 136 mmol/L (136-145); UREA NITROGEN 20 mg/dL (7-18); eGFR NON AFRICAN AMERICAN > 90 mL/min (90-120)
[2017-02-23 06:40] LABS: CALC OSMOLALITY 283 mosm/kg (275-300); CALCIUM 6.9 mg/dL (8.5-10.1); GLUCOSE 252 mg/dL (74-106)
[2017-02-23 08:22] VITALS: BP 128/44
--- NOTE | 2017-02-23 10:50 | NUR ---
PT AOX2 OCCASIONALLY X3 RESP EVEN AND NONLABORED PT RESP EVEN AND NONLABORED PT DENIES NEEDS AT THIS TIME PT IN FOR IV ANTIBIOTICS AND ACCURATE I&O. IV TO RIGHT EJ PATENT AND INTACT WILL CONTINUE TO MONITOR
[2017-02-23 11:14] VITALS: BP 143/74
[2017-02-23 15:11] VITALS: BP 140/72
[2017-02-23 19:00] VITALS: BP 124/72
--- NOTE | 2017-02-23 19:00 | NUR ---
PATIENT SLEEPING ON BACK ON FIRST STEP OVERLAY. CPAP ON. HOB 45 DEGREES. 0 S/S OF DISTRESS. RIGHT IJ PATENT WITH DRESSING CDI. DRESSING TO BUTTOCKS CDI. SVETA MAT ON. SRX2. BED LOW. CALL LIGHT WITHIN REACH.
--- NOTE | 2017-02-23 21:00 | NUR ---
PATIENT HAD INCONTINENT EPISODE OF BLADDER AND BOWEL. LINENS AND GOWN CHANGED. REPOSITIONED PATIENT TO THE LEFT.
--- NOTE | 2017-02-23 23:30 | NUR ---
LINENS AND GOWN CHANGED DUE TO INCONTINENT EPISODE OF BLADDER AND BOWEL. REPOSITIONED PATIENT TO BACK. NIGHTTIME MEDS GIVEN.
[2017-02-24] VITALS: BP 140/69
--- NOTE | 2017-02-24 02:00 | NUR ---
LINENS AND GOWN CHANGED AGAIN. REPOSITIONED PATIENT TO RIGHT. 20 MEQ KCL HUNG PER ELECTROLYTE PROTOCOL.
[2017-02-24 04:00] VITALS: BP 124/68
--- NOTE | 2017-02-24 04:00 | NUR ---
PATIENT EXPRESSED NEED TO HAVE BM AND DID SO ON A BED WILCOX. CHANGED LINENS. PATIENT RESTING ON BACK. 2ND KCL RIDER INITIATED.
[2017-02-24 06:14] LABS: BASOPHILS 0 % (0.0-2.0); EOSINOPHILS 0 % (0-7); HEMATOCRIT 26.9 % (42.0-54.0); HEMOGLOBIN 8.9 g/dL (13.5-17.5); IMMATURE GRANULOCYTES 1.1 % (0-5); LYMPHOCYTES 5.8 % (15-50); MCH 28.3 pg (26.0-34.0); MCHC 33.1 g/dL (31.0-37.0); MCV 85.7 fL (80.0-100.0); MEAN PLATELET VOLUME 9.1 fL (7.4-10.4); MONOCYTES 4.9 % (2-11); NEUTROPHILS 88.2 % (40-80); PLATELET COUNT 474 10x3/uL (130-400); RBC 3.14 10x6/uL (4.20-6.10); RDW 20.4 % (11.5-14.5); WBC 37.8 10x3/uL (4.8-10.8)
[2017-02-24 06:43] LABS: CARBON DIOXIDE 20.9 mmol/L (21.0-32.0); CHLORIDE - SERUM 105 mmol/L (98-107); CREATININE - SERUM 0.7 mg/dL (0.6-1.3); PHOSPHOROUS 2.1 mg/dL (2.5-4.9); POTASSIUM - SERUM 3.3 mmol/L (3.5-5.1); SODIUM 138 mmol/L (136-145); UREA NITROGEN 16 mg/dL (7-18); eGFR NON AFRICAN AMERICAN > 90 mL/min (90-120)
[2017-02-24 06:54] LABS: CALC OSMOLALITY 282 mosm/kg (275-300); GLUCOSE 204 mg/dL (74-106)
[2017-02-24 06:55] LABS: CALCIUM 6.5 mg/dL (8.5-10.1)
[2017-02-24 08:59] VITALS: BP 130/68
--- NOTE | 2017-02-24 10:00 | NUR ---
TOOK AM MEDS WITHOUT DIFFICULTY. VOIDED CLEAR YELLOW URINE. ASSISTED WITH URINAL.
--- NOTE | 2017-02-24 12:00 | NUR ---
FSBS 207. GIVEN 8 UNITS REGULAR SUBQ PER SS. LUNCH TRAY SERVED IN ROOM. DENIES NEEDS.
[2017-02-24 13:09] VITALS: BP 128/61
--- NOTE | 2017-02-24 17:00 | NUR ---
CM REASSESSMENT NOTE: CM TRIED CALLING PATIENTS REGARDING IP REHAB OR [facility] (LEFT MSG. TO CALL CM). CM WILL FOLLOW UP IN AM.
--- NOTE | 2017-02-24 17:00 | NUR ---
FSBS 309. GIVEN 12 UNITS REGULAR SUBQ PER SS. SUPPER TRAY SERVED IN ROOM. ASSISTED WITH MEAL. NO CHANGES NOTED. DENIES NEEDS. PLACED BIPAP PRIOR TO LEAVING.
[2017-02-24 17:30] VITALS: BP 128/67
[2017-02-24 19:00] VITALS: BP 126/64
[2017-02-25] VITALS: BP 125/76
[2017-02-25 04:00] VITALS: BP 129/68
[2017-02-25 06:22] LABS: MAGNESIUM - SERUM 1.3 mg/dL (1.8-2.4); PHOSPHOROUS 2.8 mg/dL (2.5-4.9)
[2017-02-25 07:34] LABS: ALBUMIN 2.6 g/dL (3.4-5.0); ALKALINE PHOSPHATASE 44 U/L (46-116); ALT (SGPT) 13 U/L (10-68); CALC OSMOLALITY 280 mosm/kg (275-300); CHLORIDE - SERUM 104 mmol/L (98-107); CREATININE - SERUM 0.6 mg/dL (0.6-1.3); GLUCOSE 212 mg/dL (74-106); PROTEIN - SERUM 5.2 g/dL (6.4-8.2); SODIUM 137 mmol/L (136-145); UREA NITROGEN 15 mg/dL (7-18); eGFR NON AFRICAN AMERICAN > 90 mL/min (90-120)
[2017-02-25 07:43] LABS: POTASSIUM - SERUM 3.8 mmol/L (3.5-5.1)
[2017-02-25 07:47] LABS: CALCIUM 6.3 mg/dL (8.5-10.1)
[2017-02-25 08:00] VITALS: BP 128/74
--- NOTE | 2017-02-25 08:45 | NUR ---
AWAKE AND ALERT. ORIENTED X3. NO C/O THIS AM. INCONTINENT OF URINE, SKIN CARE AND LINENS CHANGED PER STAFF AND . LUNGS ARE CLEAR BILATERALLY, NO COUGH NOTED. SKIN IS INTACT WITHOUT REDNESS EXCEPT STAGE 2 TO BUTTOCKS. WILL MONITOR. RIGHT IJ PATENT WITHOUT REDNESS AT INSERTION SITE.
--- NOTE | 2017-02-25 11:45 | NUR ---
Rehab Prescreening Consult recieved and the patient and his have been visited. He meets criteria for IRF and is very eager to start the program. Rehab does not have an isolation bed open today, but will have one tomorrow. He will be accepted to the IRF tomorrow if all physicians agree. The patient's and the [facility] have been made aware. Talisha Weiss RN Clinical Liaison, Rehab
[2017-02-25 12:00] VITALS: BP 122/64
--- NOTE | 2017-02-25 12:00 | NUR ---
FSBS 236. GIVEN 8 UNITS REGUALR SUBQ PER SS. LUNCH SERVED IN ROOM. AT BEDSIDE.
--- NOTE | 2017-02-25 12:30 | NUR ---
ATE OVER HALF OF LUNCH TRAY WITH 'S ASSISTANCE. NO NEEDS NOTED.
--- NOTE | 2017-02-25 14:00 | NUR ---
UP TO SIDE OF BED WITH PT'S HELP MAX X2. INCONTINENT OF URINE AND STOOL. SKIN CARE PER STAFF. LINENS AND GOWN CHANGED WELL. REPOSITIONED IN BED FOR COMFORT.
--- NOTE | 2017-02-25 14:45 | NUR ---
INCONTINENT OF STOOL, SMALL AMOUNT OF VERY DARK SEMI FORMED STOOL. SKIN CARE PER STAFF.
[2017-02-25 16:00] VITALS: BP 110/74
[2017-02-25 19:00] VITALS: BP 137/71
--- NOTE | 2017-02-25 19:29 | NUR ---
NO CHANGES AT THIS TIME. AT BEDSIDE.
--- NOTE | 2017-02-25 21:07 | NUR ---
PATIENT RESTING IN BED. NO SIGNS OF DISTRESS NOTED. ALERT. DISORIENTED TO TIME. SCHEDULED MEDS GIVEN. SHIFT ASSESSMENT COMPLETED. DENIES ANY NEEDS AT THIS TIME. BED LOW CALL LIGHT IN REACH
[2017-02-26] VITALS: BP 126/68
[2017-02-26 04:00] VITALS: BP 133/64
[2017-02-26 05:25] LABS: BASOPHILS 0.1 % (0.0-2.0); EOSINOPHILS 0 % (0-7); HEMATOCRIT 27.8 % (42.0-54.0); HEMOGLOBIN 9.2 g/dL (13.5-17.5); IMMATURE GRANULOCYTES 1.2 % (0-5); LYMPHOCYTES 5.9 % (15-50); MCH 28.7 pg (26.0-34.0); MCHC 33.1 g/dL (31.0-37.0); MCV 86.6 fL (80.0-100.0); MEAN PLATELET VOLUME 9.1 fL (7.4-10.4); MONOCYTES 6.2 % (2-11); NEUTROPHILS 86.6 % (40-80); PLATELET COUNT 471 10x3/uL (130-400); RBC 3.21 10x6/uL (4.20-6.10); RDW 20.8 % (11.5-14.5); WBC 33.6 10x3/uL (4.8-10.8)
[2017-02-26 05:48] LABS: CALC OSMOLALITY 282 mosm/kg (275-300); CHLORIDE - SERUM 104 mmol/L (98-107); CREATININE - SERUM 0.7 mg/dL (0.6-1.3); GLUCOSE 184 mg/dL (74-106); POTASSIUM - SERUM 3.6 mmol/L (3.5-5.1); SODIUM 139 mmol/L (136-145); UREA NITROGEN 12 mg/dL (7-18); eGFR NON AFRICAN AMERICAN > 90 mL/min (90-120)
[2017-02-26 05:53] LABS: CALCIUM 6.3 mg/dL (8.5-10.1)
[2017-02-26] MEDS ORDERED: VANCOMYCIN250 MG/51 PO (08:00)
[2017-02-26] MEDS ORDERED: XARELTO20 MG PO (08:00)
[2017-02-26 08:20] VITALS: BP 131/68
--- NOTE | 2017-02-26 10:23 | NUR ---
CM REASSESSMENT NOTE: PATIENT WILL DISCHARGE TODAY - HAS BEEN ACCEPTED TO IP REHAB. AT BEDSIDE.
[2017-02-26 12:14] VITALS: BP 134/89
--- NOTE | 2017-02-26 15:46 | NUR ---
PATIENT DISCHARGED TO INPATIENT REHAB VIA BED TO ROOM 1109. AWARE OF TRANSFER/DISCHARGE. REPORT CALLED TO NATHALIE FERRER RN. ALL QUESTIONS ANSWERED.
== END 2017-02-26 15:48 | DRG 871 ==
LOC: D.ER 15:23 → D.MS 18:28
PROVIDERS: Emergency Medicine; Internal Medicine Nephrology; Student in an Organized Health Care Education/Training Program; ADMIT Family Medicine
DX: A41.9 Sepsis, unspecified organism (principal); G93.41 Metabolic encephalopathy; B37.49 Other urogenital candidiasis; C85.90 Non-Hodgkin lymphoma, unspecified, unspecified site; E87.0 Hyperosmolality and hypernatremia; N17.9 Acute kidney failure, unspecified; E46 Unspecified protein-calorie malnutrition; A04.7 Enterocolitis due to Clostridium difficile; I82.412 Acute embolism and thrombosis of left femoral vein; I82.432 Acute embolism and thrombosis of left popliteal vein; M10.9 Gout, unspecified; M06.9 Rheumatoid arthritis, unspecified; E11.9 Type 2 diabetes mellitus without complications; I25.10 Atherosclerotic heart disease of native coronary artery without angina pectoris; I10 Essential (primary) hypertension; E83.52 Hypercalcemia; Z68.30 Body mass index [BMI] 30.0-30.9, adult; I48.0 Paroxysmal atrial fibrillation; R13.12 Dysphagia, oropharyngeal phase; E83.42 Hypomagnesemia; I95.9 Hypotension, unspecified; E87.6 Hypokalemia; R33.9 Retention of urine, unspecified; N32.0 Bladder-neck obstruction

== ENCOUNTER 2017-02-26 15:35 | Inpatient (IN) | payer MEDICARE, OTHER ==
[~2017-02-26] VITALS: Ht 188 cm; Wt 97.1 kg
[~2017-02-26 15:35] MED LIST: ACETAMINOPHEN325 MG PO; ACIDOPHILUS LAC1 CAP PO; C-500500 MG PO; CARDIZEM60 MG PO; CHOLESTYRAMIN4 G/PK1 PO; CIPRO XR 5500 MG/BOT PO; CRANBERRY 400 M1 TA1 PO; DEBROX OTIC15 ML EACH EAR; FLOMAX0.4 MG PO; HYDROCODONE-APA1 TAB PO; K-DUR20 MEQ; LANOXIN250 MCG PO; LEVEMIR100 U/M1 SC; LISINOPRIL2.5 MG PO; MYLANTA / MAALO30 ML PO; NOVOLIN R100 U/ML; PEPCID20 MG PO; REFRESH TEARS15 ML EACH EYE; SEROQUEL25 MG PO; ULTRAM50 MG PO; VANCOMYCIN250 MG/51 PO; VIC-FORTE CAPSUL1 MG PO; XANAX0.25 MG PO; XARELTO20 MG PO; ZINC50 MG; ZOFRAN4 MG PO; ZYLOPRIM100 MG PO
[2017-02-26 16:51] VITALS: BP 120/68; BMI 27.5
[2017-02-26 18:58] VITALS: BP 120/68
--- NOTE | 2017-02-26 19:40 | NUR ---
PT RESTING IN BED, EYES CLOSED. CPAP IN PLACE. WCTM. BED LOW. CL IN REACH.
--- NOTE | 2017-02-26 21:00 | NUR ---
PT ASSISTED WITH USE OF URINAL. PT BRIEF ALSO CHANGED DUE TO INCONT URINE. WCTM. BED LOW. CL IN REACH.
--- NOTE | 2017-02-26 23:00 | NUR ---
PT HS MEDS ADMINISTERED. PT DENIES NEEDS. WCTM. BED LOW. CL IN REACH.
--- NOTE | 2017-02-27 01:15 | NUR ---
PT RESTING, EYES CLOSED. BED LOW. CLIN REACH.
[2017-02-27 07:00] VITALS: BP 130/68
[2017-02-27 07:20] LABS: CALC OSMOLALITY 279 mosm/kg (275-300); CARBON DIOXIDE 26.3 mmol/L (21.0-32.0); CHLORIDE - SERUM 104 mmol/L (98-107); CREATININE - SERUM 0.6 mg/dL (0.6-1.3); GLUCOSE 148 mg/dL (74-106); POTASSIUM - SERUM 3.1 mmol/L (3.5-5.1); SODIUM 139 mmol/L (136-145); UREA NITROGEN 11 mg/dL (7-18); eGFR NON AFRICAN AMERICAN > 90 mL/min (90-120)
[2017-02-27 07:24] LABS: BASOPHILS 0.1 % (0.0-2.0); CALCIUM 6.6 mg/dL (8.5-10.1); EOSINOPHILS 0.8 % (0-7); HEMOGLOBIN 9.5 g/dL (13.5-17.5); LYMPHOCYTES 6.8 % (15-50); MCH 28.9 pg (26.0-34.0); MCHC 32.8 g/dL (31.0-37.0); MCV 88.1 fL (80.0-100.0); MEAN PLATELET VOLUME 9.4 fL (7.4-10.4); MONOCYTES 7.3 % (2-11); PLATELET COUNT 449 10x3/uL (130-400); RBC 3.29 10x6/uL (4.20-6.10); RDW 21.3 % (11.5-14.5); WBC 32.1 10x3/uL (4.8-10.8)
--- NOTE | 2017-02-27 07:30 | NUR ---
PT IS RESTING IN BED WITH EYES CLOSED. AWOKE EASILY TO VERBAL STIMULI. ALERT TO SELF. CONFUSED TO TIME AND PLACE. UNABLE TO RE ORIENT PT AT THIS TIME. CONTACT PRECAUTIONS OBSERVED. RIGHT IJ IV ACCESS NOTED. PT DENIES ACUTE PAIN OR DISCOMFORT AT THIS TIME. SR'S ARE UP X 3 IN BED. CALL LIGHT AND BEDSIDE TABLE ARE WITHIN EASY REACH.
--- NOTE | 2017-02-27 09:28 | NUR ---
PT IS RESTING IN BED AWAITING THERAPY. NO NEEDS VOICED.
--- NOTE | 2017-02-27 12:01 | NUR ---
PT IS FEEDING SELF LUNCH WITH MIN ASSIST FROM HIS . NO SWALLOWING PROBLEMS NOTED. NO NEEDS VOICED.
[2017-02-27 12:33] VITALS: Ht 188 cm; Wt 97.1 kg
--- NOTE | 2017-02-27 13:20 | NUR ---
PT IS RESTING QUIETLY IN BED WITH EYES CLOSED. RESPS ARE EVEN AND [id number]. NO ACUTE DISTRESS NOTED.
--- NOTE | 2017-02-27 15:40 | NUR ---
RESTING IN BED WITH EYES CLOSED.
--- NOTE | 2017-02-27 18:41 | NUR ---
RESTING QUIETLY IN BED. CALL LIGHT IN REACH
--- NOTE | 2017-02-27 21:55 | NUR ---
PT HS MEDS ADMINISTERED. PT PAD CHANGED OF INCONTINENT URINE. PT CPAP IN PLACE. PT DENIES NEEDS. WCTM. BED LOW. CL IN REACH.
--- NOTE | 2017-02-28 00:52 | NUR ---
PT RESTING, EYES CLOSED. BED LOW. CL IN REACH.
--- NOTE | 2017-02-28 03:15 | NUR ---
PT RESTING, EYES CLOSED. RR ARE EVEN AND UNLABORED. WCTM. BED LOW. CL IN REACH.
--- NOTE | 2017-02-28 05:56 | NUR ---
PT AM MEDS ADMINISTERED. PT BRIEF AND PAD CHANGED OF INCONT URINE. PT DENIES NEEDS. BED LOW. CL IN REACH.
[2017-02-28 07:00] VITALS: BP 109/57
--- NOTE | 2017-02-28 07:30 | NUR ---
SLEEPING,CL IN REACH.
--- NOTE | 2017-02-28 07:45 | NUR ---
PT RESTING IN BED WITH CPAP ON. AWOKE EASILY TO VERBAL STIMULI. ALERT TO SELF AND PLACE. DISORIENTED TO TIME, BUT REORIENTED EASILY. HOB RAISED 40 DEGREES FOR PT TO EAT BREAKFAST. FEEDING SELF AFTER TRAY SET UP BY STAFF. NO SWALLOWING PROBLEMS NOTED. RIGHT IJ CATHETER NOTED. SR'S ARE UP X 3 IN BED. CALL LIGHT AND BEDSIDE TABLE ARE WITHIN EASY REACH.
--- NOTE | 2017-02-28 09:15 | NUR ---
PT RESTING IN BED WITH EYES OPEN. SPOUSE ASSISTING PT WITH AM ADL'S.
--- NOTE | 2017-02-28 12:01 | NUR ---
PT IS RESTING IN BED EATING LUNCH. SPOUSE IS ASSISTING WHERE NEEDED.
--- NOTE | 2017-02-28 15:00 | NUR ---
PT IS RESTING IN BED DOING EXERCISES WITH HIS . NO ACUTE DISTRESS NOTED.
[2017-02-28 19:00] VITALS: BP 114/54
--- NOTE | 2017-02-28 19:20 | NUR ---
IN BED, CPAP IN PLACE. RESTING QUIETLY.
--- NOTE | 2017-02-28 21:40 | NUR ---
RESTING IN BED, EYES CLOSED. BIPAP MASK IN PLACE.
--- NOTE | 2017-02-28 22:20 | NUR ---
ASSESSMENT AND HS MEDS COMPLETE. FSBS 221. GAVE PATIENT 8 UNITS REGULAR S/S INSULIN BY SC INJ IN RIGHT ABDOMEN. RIGHT TLIJ REMAINS PATENT TO FLUSH AND BLOOD RETURN ON ALL 3 PORTS. ASSISTED TRIM LINE WORKER TO CLEANSED AND CHANGE PATIENT FROM MODERATE URINARY INCONTINENCE AND TRACE STOOL INCONTINENCE. APPLIED CALMOSEPTINE OINTMENT TO EXCORIATED BUTTOCKS. SCANT BLEEDIN NOTED. PATIENT CONTINUES ON AIR MATTRESS OVERLAY. DOES NOT TOLERATE TURNING. SAYS IT IS TOO PAINFUL.
--- NOTE | 2017-02-28 23:50 | NUR ---
RESTING IN BED, EYES CLOSED. BIPAP MASK IN PLACE.
--- NOTE | 2017-03-01 02:00 | NUR ---
AWOKE PATIENT AND REPLACED HIS BIPAP MASK. RE-COVERED HIM HE HAD KICKED OFF HSI COVERS AND COMPLAINED HE IS COLD.
--- NOTE | 2017-03-01 03:50 | NUR ---
WITH ASSIST FROM SAMMY BELL. CLEANSED AND CHANGED PATIENT FROM LARGTE URINARY INCONTINENCE IN BED. REPOSITIONED HIM HIGHER UP IN BED, AND REPOSITIONED DRAW SHEET TO A USEFUL POSITION UNDER HIM. PATIENT MAKES NO EFFORT TO ASSIST WITH REPOSITIONING AND MUST BE CONSTANTLY CUED TO HOLD HIMSELF AT BEDRAIL FOR CLEANSING, OTHERWISE HE ROLLS BACK TO CENTER SOON HE IS ON HIS SIDE.
--- NOTE | 2017-03-01 05:35 | NUR ---
RESTING QUIETLY IN BED, EYES CLOSED, CPAP MASK IN PLACE. APPEARS COMFORTABLE.
[2017-03-01 06:23] LABS: BASOPHILS 0 % (0.0-2.0); EOSINOPHILS 1.8 % (0-7); HEMATOCRIT 26.7 % (42.0-54.0); HEMOGLOBIN 8.7 g/dL (13.5-17.5); IMMATURE GRANULOCYTES 0.9 % (0-5); LYMPHOCYTES 8.7 % (15-50); MCH 28.9 pg (26.0-34.0); MCHC 32.6 g/dL (31.0-37.0); MCV 88.7 fL (80.0-100.0); MEAN PLATELET VOLUME 9.7 fL (7.4-10.4); MONOCYTES 9.1 % (2-11); NEUTROPHILS 79.5 % (40-80); PLATELET COUNT 393 10x3/uL (130-400); RBC 3.01 10x6/uL (4.20-6.10); RDW 20.9 % (11.5-14.5); WBC 29.2 10x3/uL (4.8-10.8)
[2017-03-01 06:27] LABS: CALCIUM 7.4 mg/dL (8.5-10.1); CARBON DIOXIDE 23.4 mmol/L (21.0-32.0); CHLORIDE - SERUM 103 mmol/L (98-107); GLUCOSE 156 mg/dL (74-106); POTASSIUM - SERUM 3.3 mmol/L (3.5-5.1); SODIUM 136 mmol/L (136-145); eGFR NON AFRICAN AMERICAN 89 mL/min (90-120)
[2017-03-01 06:30] LABS: CALC OSMOLALITY 275 mosm/kg (275-300); CREATININE - SERUM 0.9 mg/dL (0.6-1.3); UREA NITROGEN 16 mg/dL (7-18)
--- NOTE | 2017-03-01 07:30 | NUR ---
RESTING QUIETLY IN BED. CALL LIGHT IN REACH
--- NOTE | 2017-03-01 08:00 | NUR ---
PATIENT RESTING IN BED. ALERT TO SELF AND PLACE. NOT TIME OR SITUATION. CALL LIGHT WITHIN REACH. VOICES NO NEEDS AT THIS TIME
[2017-03-01 08:11] VITALS: BP 116/65
--- NOTE | 2017-03-01 09:38 | RHP ---
PATIENT: UBALDO BURDEN MEDICAL RECORD: [id number] ACCOUNT: [id number] LOCATION:[facility] [id number] : 47 ADMISSION DATE: 02/26/17 REHABILITATION HISTORY AND PHYSICAL EXAMINATION POST ADMISSION PHYSICIAN EXAMINATION Post-admission Physical Examination and History and Physical DATE OF ADMISSION TO THE REHAB: 02/26/2017 ADMITTING DIAGNOSES: Encephalopathy secondary to infection, urosepsis and CDT. HISTORY OF PRESENT ILLNESS: The patient is a 71-year-old gentleman who is admitted with encephalopathy secondary urosepsis. He has got a complicated recent past medical history. He was hospitalized in October of 2016 at [facility] and then a local fdc facility. He had a large GI bleed and had encephalopathy with chronic UTIs and episodes of C. diff colitis. He was improved in a fdc unit for a couple of weeks, but then developed another UTI. The UTI was sensitive to Cipro, but the patient had encephalopathic changes and was not able to take oral medications due to oropharyngeal dysphagia. Per with his , he grabbed his lower abdomen in pain in the last few days, that the catheter was in, they check a UA and urine culture from the catheter before removing it and it grew out Pseudomonas. Altered mental status consistent of word salad and talking gibberish for about 3 days straight. They had some concerns for aspiration due to his altered mental status and dysphagia. He had intermittent problems with temperature up to 103.3. He had leukocytosis with a white count as high as a 46,000. He had a fingerstick blood sugars q.a.c. and q.h.s. that range from 212 to 350 and he was placed on intermediate-resistance sliding scale. Diarrhea continued and a stool for CDT was positive on February 11. Renal functions worsened, so nephrology was consulted for acute renal failure. Cardiology was consulted for his angina, coronary artery disease and a past AK. 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 Due to his acute mental status changes, his requested any sedating medicines be held other than Tylenol. Currently, he is alert and oriented times 2. Does have some intermittent confusion regarding some events, but reorient quite quickly. 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 Currently, he is moderate to max assist for ADLs and has not been able to do anything other than standby the bedside. His barriers to discharging home at this time are severe oropharyngeal dysphagia requiring intermittent supervision for aspiration precautions and renal ADA pureed diet. He is incontinent of bowel and bladder. He cannot get out of bed without assistance to go to the bathroom. He is on enteric isolation for CDT. He is getting his fingerstick blood sugars prior to meals and is on sliding scale insulin. He is receiving IV electrolytes per electrolyte protocol. He has received 2 units of blood for anemia. He currently got a stage II pressure ulcer on his buttocks and also has a first step overlay mattress at this time. He is at risk for further infection, falls, aspiration pneumonia, DVT, increasing the burden in the care on his and primary caregiver. He definitely will need inpatient rehabilitation if he has any chance of actually returning back home. COMORBIDITIES: In this patient include metabolic encephalopathy, cardiomyopathy, renal failure, altered mental status, UTI, recent GI bleed, hypernatremia, hypercalcemia, DVT in the past, anemia, fever, leukocytosis, hypertension, angina, weakness and anxiety. HISTORY AND PHYSICAL [id number] UBALDO BURDEN PAST MEDICAL HISTORY: Significant for pneumonia, altered mental status, renal failure, UTI, history of GI bleed in the past, hypertension, angina, fatigue, weakness and anxiety. PAST SURGICAL HISTORY: Includes a total knee replacement. He has had a tonsillectomy and adenoidectomy. He has had PTCA with stents and gallbladder removal. ALLERGIES: CODEINE. CURRENT MEDICATIONS: Include Zyloprim 100 mg daily, Pepcid 20 mg b.i.d., diltiazem 60 mg t.i.d., Zinc 220 mg daily. He is on Flomax 0.4 mg daily, potassium 20 mEq daily, multivitamin daily, lisinopril 2.5 mg daily. He is on an intermediate-resistance sliding scale with insulin. He is no vancomycin 250 mg q.i.d., tramadol 50 mg t.i.d., Xarelto 20 mg daily. He is on Seroquel 25 mg b.i.d., artificial tears as needed, Zofran p.r.n. nausea and vomiting. Milk of magnesia p.r.n. indigestion or constipation. He is on lactobacillus daily and polyethylene glycol 17 grams in 8 ounces of water daily. HABITS: No alcohol or tobacco use. FAMILY HISTORY: Noncontributory. SOCIAL HISTORY: The patient hopes to return back home with his and get back to some type of prior level of functioning. REVIEW OF SYSTEMS: GENERAL: Does complain of weakness and fatigue. HEENT: Denies cold, cough, or congestion. CARDIOVASCULAR: Denies any chest pain. LUNGS: No shortness of breath. PHYSICAL EXAMINATION: VITAL SIGNS: Stable, afebrile. GENERAL: Elderly gentleman in no acute distress, alert times 2 on exam. HEENT: Normocephalic, atraumatic. Mucosa moist. NECK: Supple. No lymphadenopathy. LUNGS: Clear at this time. HEART: Regular rate and rhythm. ABDOMEN: Benign. EXTREMITIES: No clubbing, cyanosis or edema. NEUROLOGIC: Nonfocal at this time. LABORATORY DATA: His white count is noted to be elevated at 32,000. His H&H are 9.5 and 29 at this time. His platelet count is 449. His sodium is 139, potassium 3.1, BUN and creatinine of 11 and 0.6 and blood sugar is noted to be 148. ASSESSMENT: This is a 71-year-old gentleman who is admitted to rehab with a working diagnosis of metabolic encephalopathy secondary to infection. The patient has potential to make improvement. We instituted the following multidisciplinary therapies including to, but not limited to physical, occupational, respiratory, speech, nutritional services, prosthetics and orthotics. Given his complex condition and risk for more complications, HISTORY AND PHYSICAL [id number] UBALDO BURDEN rehabilitation services cannot be provided at a low level of care such as a fdc facility. PLAN: 1. Admit to [facility] rehab for intensive inpatient therapy to include the following disciplines: A. Physical therapy to improve gait, all transfer skills and bed mobility to a modified independent level. B. Occupational therapy to improve activities of daily living to a living to a modified independent level. C. Case management to assist with discharge planning and placement options. D. Nutrition to assist with nutritional needs. E. Rehabilitation nursing to assist in monitoring the patient's underlying medical conditions and to assist with any type of bowel or bladder management. 2. The patient's current medication and medical care will be continued. 3. We will go ahead and continue antibiotics for CDT at this time. 4. We will go ahead and monitor his electrolytes closely. 5. We will go ahead and get him to work closely with PT and OT and will update FIM score as they become available. TRANSINT:[id number] Voice Confirmation ID: [id number] DOCUMENT ID: [id number] ARDEN GUO MD at 0938 CC: [id number] DICTATION DATE: 02/27/17 1443 ROPEMAN: 02/27/17 1841 ADM IN [place] [id number] [place] [id number]
--- NOTE | 2017-03-01 10:00 | NUR ---
PATIENT DOWN IN REHAB ROOM. WORKING WITH OCCUPATIONAL AND PHYSICAL THERAPIST. SCHEDULED PAIN MEDICATION GIVEN EARLIER
--- NOTE | 2017-03-01 12:00 | NUR ---
GLUCOSE LEVEL 201. EIGHT UNITS OF SLIDING SCALE INSULIN GIVEN
--- NOTE | 2017-03-01 14:10 | NUR ---
Nutrition Follow Up: Chart reviewed. Pt is eating 100% meal avg on an ADA pureed diet. +BM 03/01/17. Wt stable. Labs noted - Glucose continues elevated. Meds noted including Humulin. Pt with excellent po intake at this time. Rec continue current diet. RD following.
--- NOTE | 2017-03-01 14:27 | NUR ---
16 FR WHALEN CATH INSERTED WITHOUT DIFFICULTY. RE: INCONT OF URINE, BREAKDOWN TO COCCYX. STAGE II. MEPILEX DRESSING APPLIED TO COCCYX
[2017-03-01 15:29] LABS: APPEARANCE CLEAR (CLEAR); BILIRUBIN NEGATIVE (NEGATIVE); COLOR YELLOW (YELLOW); GLUCOSE NEGATIVE (NEGATIVE); KETONE NEGATIVE (NEGATIVE); LEUKOCYTE ESTERASE NEGATIVE (NEGATIVE); NITRITE NEGATIVE (NEGATIVE); PROTEIN NEGATIVE (NEGATIVE); UROBILINOGEN NORMAL (NORMAL)
--- NOTE | 2017-03-01 18:35 | NUR ---
IN ROOM WITH PATIENT.
--- NOTE | 2017-03-01 18:50 | NUR ---
PATIENT IN BED, AWAKE. PRESENT. SAYS SHE WANTS TO TALK TO ME (SEEMS TO KNOW ME BY REFERENCE SHE SAID, "YOU'RE SINDY.? OH GOOD, I NEED TO DISCUSS SOME THINGS WITH YOU, WHEN YOU CAN." TOLD HER I WILL BE AVAILABLE AFTER SHIFT REPORT.
[2017-03-01 20:26] VITALS: BP 118/60
--- NOTE | 2017-03-01 20:40 | NUR ---
SPENT ABOUT 10 MINUTES SPEAKING WITH PATIENT AND HER CONCERN ABOUT THE WHALEN CATH WHICH WAS PUT IN ON DAY SHIFT TODAY. TOLD HER IT WAS REPORTED THAT PATIENT WAS UNABLE TO VOID, AND HAVING DISCOMFORT, AND THAT HE PASSED A CLOT THROUGH THE WHALEN FOLLOWED BY CONTINUOUS URINE STREAM. HER CONCERNS STEM FROM PATIENT'S HX OF CHRONIC CATH DUE TO ILLNESS, MULTIPLE UTI'S COMPLICATED BY BUTTOCKS BREAKDOWN AND CURRENT C.diff. PATIENT TOLD DAY SHIFT SHE WANTS CONSULTS BY UROLOGY, NEPHROLOGY AND INFECTION CONTROL MD'S. TOLD HER I AM AWARE OF HER REQUESTS AND THAT WE WILL INFORM DR. GUO IN THE MORNING, BUT THAT OF THIS MOMENT I CANNOT INDEPENDENTLY CONSULT THOSE PHYSICIANS THEY ARE NOT CURRENTLY FOLLOWING THIS PATIENT AND DR. GUO MUST ORDER THE CONSULTS.
--- NOTE | 2017-03-01 23:35 | NUR ---
AWOKE PATIENT. ASSESSMENT AND HS MEDS NOW COMPLETE. FSBS 179. GAVE HIM 4 UNITS REGULAR SLIDING SCALE INSULIN SC IN RIGHT UPPER ARM.
--- NOTE | 2017-03-02 00:25 | NUR ---
RESTING QUIETLY, EYES CLOSED.
--- NOTE | 2017-03-02 02:00 | NUR ---
REMAINS IN BED, EYES CLOSED. CPAP MASK IN PLACE.
--- NOTE | 2017-03-02 04:45 | NUR ---
RESTING IN BED WITH HEAD UNDER BLANKET. NOTICED CPAP WAS NOT SOUDING RIGHT. PULLED BACK BLANKET AND FOUND LEFT HEAD STRAP DISCONNECTED AND RIGHT JAW STRAP UNHOOKED. AWOKE PATIENT AND REATTACHED STRAPS. DENIES CURRENT NEEDS. EMPTIED 1900ML DARK YELLOW URINE WITH TRACE OF CLOTTED BLOOD IN BOTTOM OF URINE METER.
--- NOTE | 2017-03-02 07:00 | NUR ---
PT. WAS RECEIVED AT THE BEGINNING OF THIS SHIFT IN BED AWAKE AND ORIENTED ONLY TO HIS NAME. AT BEDSIDE. VITAL SIGNS; TEMP. 98.5, PULSE 100, RESP. 16, B/P 93/59, 02SAT. 98%. PT IS IN ISOLATION PRECAUTIONS FOR C-DIFF. WHALEN CATHETER IS PATENT AND DRAINING YELLOW URINE TO GRAVITY. HE REQUIRES TOTAL ASSIST. WILL BE MONITOIRNG HIM AND GIVING ASSIST WITH ALL ADL'S. NO SIGNS OF ANY DISCOMFORT OR DISTRESS. CALL LIGHT IN REACH.
[2017-03-02 10:34] VITALS: BP 93/59
--- NOTE | 2017-03-02 14:34 | NUR ---
PT HAS RESTED AFTER LUNCH WITH EYES CLOSED IN BED. STILL AT BEDSIDE. BLADDER TRAINING IN PROGRESS TO DC WHALEN THIS EVENING. PT HAD A LARGE MUSHY BM THIS MORNING. GOOD PERINEAL CARE WAS GIVEN WHILE IN BED. PT HAD THERAPY DONE ON HIM WHILE IN BED THIS MORNING.
--- NOTE | 2017-03-02 19:00 | NUR ---
IN BED, WAS JUST CHANGED AFTER URINARY AND DIARRHEAL INCONTINENCE. JUAREZ SAMPLE WAS OBTAINED FOR TESTING FOR OCCULT BLOOD AND WILL BE TAKEN TO LAB SHORTLY.
[2017-03-02 19:14] VITALS: BP 156/76
[2017-03-03] VITALS (18 sets, daily range): BP systolic 99–133; BP diastolic 55–93
--- NOTE | 2017-03-03 05:55 | NUR ---
[facility] FROM [facility] CVL PORT. ALL PORTS FLUSH WELL THIS AM. BLOOD SUGAR WAS 163. GAVE PATIENT 4 UNITS OF REGULAR SLIDING SCALE INSULIN SC IN RIGHT UPPER ARM.
[2017-03-03 06:50] LABS: HEMATOCRIT 23.8 % (42.0-54.0); HEMOGLOBIN 7.8 g/dL (13.5-17.5); MCH 29.7 pg (26.0-34.0); MCHC 32.8 g/dL (31.0-37.0); MCV 90.5 fL (80.0-100.0); MEAN PLATELET VOLUME 9.7 fL (7.4-10.4); PLATELET COUNT 324 10x3/uL (130-400); RBC 2.63 10x6/uL (4.20-6.10); RDW 20.7 % (11.5-14.5); WBC 22.2 10x3/uL (4.8-10.8)
--- NOTE | 2017-03-03 07:00 | NUR ---
PT WAS RECEIVED AT THE BEGINNING OF THE SHIFT IN BED AWAKE AND ORIENTED ONLY TO SELF. PT IS TOTAL CARE. WILL BE MONITORING HIM THROUGHOUT THIS SHIFT AND ASSISTING PRN WITH ADL'S. RT. NECK WITH TRIPLE LUMEN CATHETER. VITAL SIGNS; TEMP. 98.1, PULSE 97, RESP. 15, B/P 111/56, 02SAT 98%. NO SIGNS OF ANY DISCOMFORT OR DISTRESS. CALL LIGHT IS IN REACH. IS AT BEDSIDE.
[2017-03-03 07:02] LABS: CALC OSMOLALITY 281 mosm/kg (275-300); CALCIUM 8.6 mg/dL (8.5-10.1); CARBON DIOXIDE 24.6 mmol/L (21.0-32.0); CHLORIDE - SERUM 105 mmol/L (98-107); CREATININE - SERUM 0.8 mg/dL (0.6-1.3); GLUCOSE 156 mg/dL (74-106); POTASSIUM - SERUM 3.2 mmol/L (3.5-5.1); SODIUM 139 mmol/L (136-145); UREA NITROGEN 14 mg/dL (7-18); eGFR NON AFRICAN AMERICAN > 90 mL/min (90-120)
[2017-03-03 07:58] LABS: ANISOCYTOSIS OCC; HYPOCHROMASIA OCC; LYMPHOCYTES 15 % (15-50); MONOCYTES 14 % (2-11); NEUTROPHILS 69 % (40-80); PLATELET ESTIMATE NORMAL; ROULEAUX 1+
--- NOTE | 2017-03-03 08:39 | NUR ---
CRITICAL MAG++ CALLED AND RESULTS GIVEN TO .1.0
[2017-03-03 15:09] LABS: ANION GAP 14.9 mmol/L (8-16); CARBON DIOXIDE 22.9 mmol/L (21.0-32.0)
[2017-03-03 15:10] LABS: POTASSIUM - SERUM 3.8 mmol/L (3.5-5.1)
--- NOTE | 2017-03-03 15:39 | NUR ---
DR. GUO ROUNDED THIS MORNING AND NEW ORDER RECEIVED FOR PT. TO HAVE 2 UNITS OF PRBC'S TODAY. PT. WAS PRE-MEDICATED BEFORE ADMINISTERING THE 1ST UNIT OF PRBC'S. PT IS RESTING COMFORTABLY IN BED WITH AT BEDSIDE DURING TRANSFUSION.
--- NOTE | 2017-03-03 17:01 | NUR ---
CARE TEAM MEETING: TENATIVE DISCHARGE DATE IS 03/15/17. DR. MEHTA IN [place] IS PATIENT PCP. WILL CONTINUE TO FOLLOW WITH PATIENT
--- NOTE | 2017-03-03 18:50 | NUR ---
PATIENT IN BED. AT BEDSIDE.
--- NOTE | 2017-03-03 20:20 | NUR ---
RESTING QUIETLY IN BED. CPAP MASK IN PLACE. 2ND UNIT OF PRBC'S COMPLETED @ 194. FLUSHED BROWN CVL PORT. VSS.
--- NOTE | 2017-03-03 21:50 | NUR ---
ASSESSMENT AND HS MEDS COMPLETE. REPORTS PAIN LEVEL OF 7/10 IN ALL JOINTS. RECEIVED SCHEDULED TRAMADOL 50MG PO WITH HS MEDS. ALSO RECEIVED PRN ORDER OF MAGNESIUM OXIDE 400MG PO PER ELECTROLYTE PROTOCOL. NEXT DOSE TO BE AROUND 0030 AND ANOTHER AT 0430 WITH MG++ LAB TO BE DRAWN @ 0830 ON DAY SHIFT PER PROTOCOL.
--- NOTE | 2017-03-03 22:05 | NUR ---
CHANGED RIGHT JUGULAR CVL DRESSING USING STERILE PROCEDURE. THEN WITH WILTON WEAVER ASSIST, CLEANSED PATIENT AND CHANGED HIS INCONTINENCE KALYAN PAD DUE TO SATURATION WITH URINE. PER NEW ORDER OF DR. NAVA, BLADDER SCANNED PATIENT FOR RESIDUAL. RESIDUAL WAS 0ML. PATIENT WAS DRIBBLNG WHEN HE WAS CHANGED, SO MY SUSPICION IS THAT HE IS URINATING CONTINUOUSLY. STARTED ON PROSCAR PO TONIGHT PER ORDER OF DR. NAVA.
--- NOTE | 2017-03-04 00:35 | NUR ---
AWOKE PATIENT AND GAVE HIM MAG OXIDE 400MG PO WITH WATER. ALLOWED HIM TO DRINK TILL HE WAS SATISFIED. READJUSTED HIS CPAP MASK AND ADDED WATER TO HIS CPAP TANK I FOUND IT EMPTY. CLEANSED PATIENT AND CHANGED HIS ABSORPTIVE PAD DUE TO LARGE URINARY INCONTINENCE.
--- NOTE | 2017-03-04 02:15 | NUR ---
CHECKED PATIENT FOR WETNESS AND FOUND HIM TO BE DRY. REARRANGED HIS COVERS AND GOWN. RE-EMPLACED HIS CPAP MASK HE HAD PULLED IT OFF AGAIN. CONTINUES VERY CONFUSED.
--- NOTE | 2017-03-04 04:40 | NUR ---
CLEANSED AND CHANGED PATIENT FROM LARGE URINARY, AND MEDIUM VOLUME LOOSE, MUCUSY LIGHT BROWN BM INCONTINENCES. REMOVED SOILED BORDERED SACRAL MEPILEX DRESSING. CLEANED BUTTOCKS ABRASIONS WITH WOUND CLEANSER AND PATTED DRY. APPLIED FRESH BORDERED SACRAL MEPILEX DRESSING. ALSO CHANGED DRAW SHEET, HD DISPOSABLE INCONTINENCE PADS, ADULT DIAPER AND MALE INCONTINENCE PAD. PRIOR PAD WAS DRY CONSTANT DRIBBLING URINE HAD FOLLOWED BODY CREASES DOWN TO BED LINENS DIRECTLY. REMAINS VERY CONFUSED. GAVE HIM WATER TO DRINK. CHECKED FILL LEVEL OF CPAP RESERVOIR, RE-EMPLACED CPAP MASK AND RESTARTED CPAP THERAPY. HOB NOW UP 20 DEGREES. SAYS HE IS COMFORTABLE.
--- NOTE | 2017-03-04 05:35 | NUR ---
RESTING QUIETLY WITH CPAP MASK IN PLACE. EYES CLOSED.
--- NOTE | 2017-03-04 07:45 | NUR ---
PT RESTING IN BED WITH EYES OPEN. ALERT AND ORIENTED X 3. DENIES ACUTE DISCOMFORT AT THIS TIME, EXCEPT WHEN HE IS RECIEVING CARE, AND THEN HE COMPLAINS OF PAIN EVERYWHERE. RIGHT TLSC CATHETER NOTED. PT IS ON CONTACT PRECAUTIONS FOR CDIFF. SR'S ARE UP X 3 IN BED. CALL LIGHT AND BEDSIDE TABLE ARE WITHIN EASY REACH. SPOUSE IS AT BEDSIDE.
[2017-03-04 08:17] VITALS: BP 132/72
--- NOTE | 2017-03-04 10:09 | NUR ---
PT INC. OF A LARGE AMOUNT OF LOOSE STOOL. KALYAN CARE AND PAD CHANGE DONE WITH ASSIST FROM SPOUSE. MEPILEX DRESSING TO COCCYX WAS SOILED. NEW DUODERM DRESSING APPLIED.
--- NOTE | 2017-03-04 12:00 | NUR ---
HERE ASSISTING WITH MEAL.CL IN REACH.
--- NOTE | 2017-03-04 12:16 | NUR ---
PT RESTING IN BED EATING LUNCH WITH ASSIST FROM HIS . NO NEEDS VOICED.
--- NOTE | 2017-03-04 15:17 | NUR ---
PT RESTING IN BED WITH EYES OPEN. VOICED COMPLAINT OF BEING HOT, AND KICKED ALL BLANKETS OFF. LARGE AMOUNT OF INC. URINE NOTED. KALYAN CARE AND PAD CHANGE DONE.
--- NOTE | 2017-03-04 18:14 | NUR ---
PT RESTING IN BED. SPOUSE AT BEDSIDE.
[2017-03-04 19:10] VITALS: BP 136/74
--- NOTE | 2017-03-04 19:45 | NUR ---
PT RECEIVED IN BED WITH EYES CLOSED AND CHEST RISING. CPAP IN USE. NO SIGN/SYMPTOMS OF DISTRESS NOTED. EASILY AROUSED TO VERBAL STIMULI. NO NEEDS OR CONCERNS NOTED. CALL LIGHT IN REACH.
--- NOTE | 2017-03-05 01:21 | NUR ---
PT IN BED WITH EYES CLOSED AND CHEST RISING. CALM AND NO RESTLESSNESS NOTED. WILL CONTINUE TO OBSERVE. CALL LIGHT IN REACH.
[2017-03-05 06:23] LABS: BASOPHILS 0 % (0.0-2.0); EOSINOPHILS 1.4 % (0-7); HEMATOCRIT 31.2 % (42.0-54.0); HEMOGLOBIN 10.3 g/dL (13.5-17.5); IMMATURE GRANULOCYTES 0.6 % (0-5); LYMPHOCYTES 6.9 % (15-50); MCH 29.7 pg (26.0-34.0); MCV 89.9 fL (80.0-100.0); MEAN PLATELET VOLUME 9.1 fL (7.4-10.4); MONOCYTES 7.5 % (2-11); NEUTROPHILS 83.6 % (40-80); PLATELET COUNT 280 10x3/uL (130-400); RBC 3.47 10x6/uL (4.20-6.10); WBC 26.8 10x3/uL (4.8-10.8)
[2017-03-05 06:44] LABS: CALC OSMOLALITY 282 mosm/kg (275-300); CALCIUM 9.1 mg/dL (8.5-10.1); CARBON DIOXIDE 25.9 mmol/L (21.0-32.0); CHLORIDE - SERUM 104 mmol/L (98-107); CREATININE - SERUM 0.8 mg/dL (0.6-1.3); GLUCOSE 176 mg/dL (74-106); SODIUM 140 mmol/L (136-145); UREA NITROGEN 12 mg/dL (7-18); eGFR NON AFRICAN AMERICAN > 90 mL/min (90-120)
--- NOTE | 2017-03-05 07:30 | NUR ---
RESTING QUIETLY IN BED. CALL LIGHT IN REACH
--- NOTE | 2017-03-05 07:34 | NUR ---
PT IN BED WITH EYES OPEN. INCONTINENT OF BLADDER X4 WITH NEED TO CHANGE LINENS ONCE. CONFUSED AT TIMES. NO OTHER CONCERNS. CALL LIGHT IN REACH.
[2017-03-05 07:59] VITALS: BP 117/67
--- NOTE | 2017-03-05 10:34 | NUR ---
PT IS RESTING IN BED RECIEVING A BED BATH AT THIS TIME. NO ACUTE DISTRESS NOTED.
--- NOTE | 2017-03-05 12:45 | NUR ---
PT EATING LUNCH WITH ASSIST FROM HIS . NO ACUTE DISTRESS NOTED.
--- NOTE | 2017-03-05 15:26 | NUR ---
PT RESTING QUIETLY IN BED WITH EYES CLOSED. CPAP ON.
[2017-03-05 19:11] VITALS: BP 127/68
--- NOTE | 2017-03-05 19:35 | NUR ---
PT FAMILY AT BEDSIDE. PT AND FAMILY DENY NEEDS. WCTM. BED LOW. CL IN REACH.
--- NOTE | 2017-03-05 21:10 | NUR ---
PT HS MEDS ADMINISTERED. PT DENIES NEEDS. WCTM. BED LOW. CLIN REACH.
--- NOTE | 2017-03-05 22:45 | NUR ---
PT BRIEF CHANGED DUE TO INCONTINENT URINE. WCTM. BED LOW. CLIN [facility].
--- NOTE | 2017-03-06 00:14 | NUR ---
PT HAD REMOVED CPAP. REPLACED CPAP AND BLANKETS. PT DENIES NEEDS. WCTM. BED LOW. CL IN REACH.
--- NOTE | 2017-03-06 02:40 | NUR ---
PT HAS BEEN CALLING OUT REPEATEDLY FOR HELP. WHEN ENTERING THE ROOM PT STATES HE DIDN'T KNOW HE WAS YELLING AND THAT HE WAS SORRY. REPLACED PT BLANKETS. WCTM. BED LOW. CLIN [facility].
--- NOTE | 2017-03-06 05:51 | NUR ---
PT AM FSBS REQUIRES NO INSULIN. PT HAS CALLED OUT FOR HELP INTERMITTENTLY THROUGHOUT THE NIGHT AND HAS NOT RESTED WELL. PT BRIEF CHANGED DUE TO INCONTINENT URINE. BED LOW. CL IN REACH.
[2017-03-06 07:00] VITALS: BP 104/60
--- NOTE | 2017-03-06 07:14 | NUR ---
RESTING QUIETLY IN BED CALL LIGHT IN REACH
--- NOTE | 2017-03-06 11:45 | NUR ---
GLUCOSE LEVEL 195, FOUR UNITS OF SLIDING SCALE INSULIN GIVEN
--- NOTE | 2017-03-06 13:01 | NUR ---
IN ROOM AND HELPED PATIENT TO EAT LUNCH. PATIENT HAS A GOOD APPETITE
--- NOTE | 2017-03-06 15:57 | NUR ---
REMAINS AT PATIENTS BEDSIDE. HELPING PATIENT WITH URINAL
--- NOTE | 2017-03-06 17:24 | NUR ---
ELECTROLIGHT PROTOCHOL FOLLOWED. MAG GIVEN AND MAG SERUM LEVEL DRAWN. GLUCOSE LEVEL 188. FOUR UNITS OF SLIDING SCALE INSULIN GIVEN
--- NOTE | 2017-03-06 17:51 | NUR ---
PRN TYLENOL AND ICE PACK GIVEN FOR RIGHT UNDER ARM PAIN.
[2017-03-06 19:19] VITALS: BP 103/73
--- NOTE | 2017-03-06 19:40 | NUR ---
PT IN BED WITH HOB UP FR COMFORT, RESTING QUIETLY, CHEST RISING AND FALLING, WEARING CPAP HOME UNIT, BED IN LOWEST POSITION AND CALL LIGHT WITHIN REACH.
--- NOTE | 2017-03-06 21:45 | NUR ---
PT. LYING ON FIRST STEP MATTRESS AND IS AWAKE WITH TV ON. NO VOICED NEEDS AT THIS TIME AND HIS CALL LIGHT IS WITHIN REACH.
--- NOTE | 2017-03-06 23:40 | NUR ---
PT IN BED WITH HOB UP FOR COMFORT, EYES CLOSED, CHEST RISING AND FALLING, WEARING CPAP, BED IN LOWEST POSITION AND CALL LIGHT WITHIN REACH.
--- NOTE | 2017-03-07 03:28 | NUR ---
PT IN BED WITH HOB UP FOR COMFORT, EYES CLOSED, CHEST RISING AND FALLING, BED IN LOWEST POSITION AND CALL LIGHT WITHIN REACH.
[2017-03-07 07:00] VITALS: BP 125/61
--- NOTE | 2017-03-07 08:15 | NUR ---
PT RESTING IN BED ASSISTING PT WITH BREAKFAST CALL LIGHT IN REACH WILL CONTINUE TO MONITER
--- NOTE | 2017-03-07 18:00 | NUR ---
PT RESTING IN BED WITH EYES OPEN CALL LIGHT IN REACH WILL MONITER
--- NOTE | 2017-03-07 19:02 | NUR ---
RESTING QUIETLY IN BED CALL LIGHT IN REACH
--- NOTE | 2017-03-07 20:10 | NUR ---
PT HS MEDS ADMINISTERED. PT DENIES NEEDS. BED LOW. CL IN REACH.
[2017-03-07 21:35] VITALS: BP 113/72
--- NOTE | 2017-03-07 21:35 | NUR ---
PT CHANGED OF INCONTINENT B&B. PT HAD MOD BM, BROWN AND PASTEY. PT DENIES NEEDS. BED LOW. CL IN REACH.
--- NOTE | 2017-03-08 00:57 | NUR ---
PT CHANGED OF INCONT URINE. PT DENIES FURTHER NEEDS. WCTM. BED LOW. CL IN REACH.
--- NOTE | 2017-03-08 02:49 | NUR ---
PT HAS BEEN CALLING OUT FOR HELP MOST OF THE NIGHT. EACH TIME CPAP AND BED LINENS HAVE BEEN REMOVED BY PT AND REPLACED BY NURSE BECAUSE PT COMPLAINS THAT HE IS COLD. PT IS RESTING WITH EYES CLOSED AT THIS TIME. BED LOW. CL IN REACH.
--- NOTE | 2017-03-08 08:15 | NUR ---
PT IN BED EATING BREAKFAST ASSISTING CALL LIGHT IN REACH
[2017-03-08 09:20] VITALS: BP 107/54
--- NOTE | 2017-03-08 12:00 | NUR ---
PT UP IN CHAIR AT BEDSIDE EATING LUNCH TOLERATING WELL WILL MONITER
--- NOTE | 2017-03-08 13:36 | NUR ---
SITTING UP IN CHAIR. AT BEDSIDE.SPEECH THERAPY IN ROOM.
--- NOTE | 2017-03-08 14:55 | NUR ---
PT IS RESTING QUIETLY IN BED WITH EYES CLOSED. CPAP ON. NO DISTRESS NOTED.
[2017-03-08 19:07] VITALS: BP 125/53
--- NOTE | 2017-03-08 19:25 | NUR ---
IN BED, HOB UP 10 DEGREES. , GOWNED AND GLOVED, VISITING AT BEDSIDE.
--- NOTE | 2017-03-08 20:00 | NUR ---
REMAINS IN BED. GETTING READY TO LEAVE.
--- NOTE | 2017-03-08 22:35 | NUR ---
ASSESSMENT AND HS MEDS COMPLETE. PATIENT VERY CONFUSED TONIGHT. HAS BEEN CALLING OUT FREQUENTLY SINCE LEFT. HAS PULLED CPAP MASK OFF MULTIPLE TIMES AND HAD IT REPOSITIONED BACK ON HIS FACE. PATIENT IS CURRENTLY DRY TO URINE IS CONCERNED. WITH S IRON WORKER ASSIST, REPOSITIONED HIM HIGHER UP IN BED. REMINDED HIM HE IS IN BED FOR THE NIGHT. SEEMS TO THINK HE IS DISCHARGING AND NEEDS TO BE UP AND DRESSED.
--- NOTE | 2017-03-09 00:10 | NUR ---
CALLING OUT FOR HIS OR ANYONE WHO WILL HELP HIM TO GET UP AND DRESSED. PERSEVERATES THAT HE IS DISCHARGING TONIGHT. REMINDED HIM THAT HE IS NOT GOING ANYWHERE TONIGHT AND THAT HIS IS AT HOME SLEEPING.
--- NOTE | 2017-03-09 02:10 | NUR ---
PATIENT CALLING OUT, SHOUTING. PULLED OFF CPAP MASK. WHEN I ASKED HIM WHAT WAS WRONG PATIENT SAID HE WANTED A DRINK. FOUND BOTH HIS WATER CUPS TIPPED OVER ON HIS BEDSIDE TABLE WITH A BLANKET ABSORBING MOST OF 1 CUP. ASSISTED HIM WITH DRINKING TO SATISFY HIS THIRST AND THEN REPLACED HIS CPAP MASK.
--- NOTE | 2017-03-09 04:40 | NUR ---
IN BED, EYES CLOSED. CPAP MASK IN PLACE.
--- NOTE | 2017-03-09 06:00 | NUR ---
IN BED BEING CLEANSED AND CHANGED BY BONDING MACHINE TENDER.
--- NOTE | 2017-03-09 07:00 | NUR ---
PT WAS RECEIVED IN BED WITH EYES CLOSED AT THE BEGINNING OF THIS SHIFT. C-PAP MACHINE ON. VITAL SIGNS; TEMP. 99.2, PULSE 93, RESP. 14, B/P 97/47, 02SAT. 98%. LISINOPRIL WILL BE HELD DUE TO BP BEING LOW. CALL LIGHT IS IN REACH. PT. WILL BE MONITORED AND ASSISTED PRN WITH ADL'S. HAS NOT MADE IT HERE YET. USUALLY IS HERE BY BREAKFAST TO HELP FEED HIM. NO SIGNS OF ANY DISCOMFORT OR DISTRESS.
[2017-03-09 10:21] VITALS: BP 97/47
--- NOTE | 2017-03-09 12:25 | NUR ---
Nutrition Follow Up: Chart reviewed. Pt is eating 87% meal avg on a diabetic mechanical soft diet. +BM 03/08/17. Labs reviewed - Glucose elevated. Meds noted including Lasix, Humulin, Zinc Sulfate. Noted per nursing assessment pt with stage II to coccyx. Pt with good po intake at this time. Rec continue current diet. Will send Glucerna BID to add more protein to diet. RD will continue to monitor pt progress.
--- NOTE | 2017-03-09 14:59 | NUR ---
DR. GUO ROUNDED THIS MORNING AND DR. CAMARGO HAS BEEN CONSULTED. DR. CAMARGO'S OFFICE WAS NOTIFIED OF THE CONSULT. PT WAS GIVEN TYLENOL 650MG AT 0915 AND AGAIN AT 1325. PT HAS A VERY LARGE SWOLLEN HARDENED AREA UNDER HIS RIGHT AXILLA THAT IS RED AND HURTS. PT'S IN ROOM AND HELPS WITH HIS URINATING AND MEALS. HIS LISINOPRIL WAS HELD THIS AM DUE TO BP BEING LOW. WOUND CARE NURSE WILL BE LOOKING AT THIS AREA WELL.
--- NOTE | 2017-03-09 15:58 | NUR ---
WOUND CARE: NOTED LARGE EDEMATOUS RED AREA OF RIGHT AXILLA. VERY TENDER TO THE TOUCH. DR. FROST HERE WILL START PT ON ABX. COCCYX HAS 2 STAGE 2 PRESSURE ULCERS (PRESENT ON ADMIT TO REHAB). #1 MEASURES 1CM X 1CM #2 MEASURES 2CM X 2CM MEPILEX SACRAL IS BEING APPLIED Q3D AND NEEDED (IF SOILED). PT IS BEING TURNED Q2H ( IS ASSISTING) HE IS ALSO PARTICIPATING IN PHYSICAL THERAPY. WOUND CARE WILL CONTINUE TO MONITOR.
--- NOTE | 2017-03-09 18:42 | NUR ---
DR. CAMARGO IS ROUNDING AT THIS TIME AND VISITING WITH PT. AND HIS . STABLE CONDITION OBSERVED.
[2017-03-09 20:13] VITALS: BP 136/74
--- NOTE | 2017-03-09 21:45 | NUR ---
RESTING QUIETLY IN BED, EYES CLOSED. CPAP MASK IN PLACE. PATIENT HAS BEEN CALLING OUT FOR HELP ON A FEW OCCASIONS SINCE HIS LEFT FOR HOME AROUND 1930. SHE REPORTED THAT HIS ORIENTATION IMPROVED A BIT TODAY, HOWEVER I HAVE NOT SEEN SUCH TONIGHT HER REMAINS ORIENTED X1 ONLY, CALLING OUT FOR HELP FOR IMAGINED ISSUES, AND THINKING HIS IS STILL PRESENT IN HIS ROOM. CONTINUES TO REMOVED HIS CPAP MASK ON OCCASION.
--- NOTE | 2017-03-09 22:35 | NUR ---
ASSESSMENT AND HS MEDS COMPLETE. CALMOSEPTINE HELD PATIENT HAS A MEPILEX DRESSING TO ABRASIONS TO BUTTOCKS.
--- NOTE | 2017-03-09 23:45 | NUR ---
RESTING IN BED, EYES CLOSED.
--- NOTE | 2017-03-10 02:10 | NUR ---
RESTING IN BED, WITH CPAP MASK IN PLACE. HAS HAD TO BE TOLD MANY TIMES TONIGHT TO KEEP HIS MASK ON AND TO LEAVE IT ALONE. IN SPEAKING WITH HIS YESTERDAY, SHE TOLD ME THAT HE SELDOM ATTEMPTS TO REMOVE IT DURING THE DAY WHEN SHE IS PRESENT. THAT IS DEFINITELY NOT THE CASE AT NIGHT.
--- NOTE | 2017-03-10 02:55 | NUR ---
WITH ASSIST FROM SAMMY BELL, CLEANSED PATIENT FROM LARGE URINE AND LARGE, SEMIFORMED BM INCONTINENCE. PRIOR TO CHANGING PATIENT ASSISTED HIM WITH PLACEMENT OF URINAL, BUT DID NOT URINATE. WHILE CHANGING HIM WITH PATIENT TURNED ON RIGHT SIDE, PATIENT BEGAN URINAING AGAIN REQUIRING CHANGING NEW DRAW SHEET. FRESH ADULT DIAPER WITH ADDITIONAL ABSORPTIVE MALE URINARY PAD APPLIED TO PATIENT ALONG WITH UNDERLYING BLUE AIR PADS. REMIANS ORIENTED X1 ONLY.
--- NOTE | 2017-03-10 06:20 | NUR ---
FSBS 136. CLEANSED AND CHANGED PATIENT FROM LARGE SEMIFORMED BM AND URINE INCONTINENCES. REMAINS ORIENTED X1 ONLY. CALLING OUT, "I NEED TO GET UP SO I CAN GO TO THE HOSPITAL." REMINDED HIM HE IS IN THE HOSPITAL AND HAS BEEN FOR QUITE AWHILE.
[2017-03-10 06:29] LABS: BASOPHILS 0.2 % (0.0-2.0); EOSINOPHILS 1.7 % (0-7); HEMOGLOBIN 9.7 g/dL (13.5-17.5); IMMATURE GRANULOCYTES 0.3 % (0-5); LYMPHOCYTES 11.5 % (15-50); MCH 29.9 pg (26.0-34.0); MCHC 32.3 g/dL (31.0-37.0); MCV 92.6 fL (80.0-100.0); MEAN PLATELET VOLUME 9.2 fL (7.4-10.4); MONOCYTES 5.7 % (2-11); NEUTROPHILS 80.6 % (40-80); PLATELET COUNT 345 10x3/uL (130-400); RBC 3.24 10x6/uL (4.20-6.10); RDW 18.2 % (11.5-14.5); WBC 21.8 10x3/uL (4.8-10.8)
[2017-03-10 06:58] LABS: CALC OSMOLALITY 282 mosm/kg (275-300); CALCIUM 10.1 mg/dL (8.5-10.1); CARBON DIOXIDE 25.4 mmol/L (21.0-32.0); CHLORIDE - SERUM 104 mmol/L (98-107); CREATININE - SERUM 0.7 mg/dL (0.6-1.3); GLUCOSE 165 mg/dL (74-106); POTASSIUM - SERUM 3.5 mmol/L (3.5-5.1); SODIUM 140 mmol/L (136-145); UREA NITROGEN 13 mg/dL (7-18); eGFR NON AFRICAN AMERICAN > 90 mL/min (90-120)
--- NOTE | 2017-03-10 07:15 | NUR ---
INTRODUCED SELF TO PATIENT AND FAMILY, AT BEDSIDE, NO NEW NEEDS AT THIS TIME, WILL CONTINUE TO MONITOR, CALL LIGHT WITHIN REACH.
--- NOTE | 2017-03-10 07:48 | NUR ---
POTASSIUM LEVEL 3.5.
--- NOTE | 2017-03-10 09:57 | NUR ---
MORNING MEDICATION GIVEN, PT TOLERATED WELL, PT HAD LARGE BM, ASSISTED IN CLEANING PT. WILL CONTINUE TO MONITOR, CALL LIGHT WITHIN REACH.
[2017-03-10 10:23] VITALS: BP 118/58
--- NOTE | 2017-03-10 12:40 | NUR ---
PT EATING LUNCH WITH , SITTING UP IN CHAIR, AFTERNOON MEDICATION GIVEN, PT TOLERATED WELL, WILL CONTINUE TO MONITOR, CALL LIGHT WITHIN REACH.
--- NOTE | 2017-03-10 14:08 | NUR ---
PT RESTING IN BED, RESPIRATIONS EVEN, WILL CONTINUE TO MONITOR, CALL LIGHT WITHIN REACHG.
--- NOTE | 2017-03-10 16:05 | NUR ---
PT RESTING QUIETLY, RESPIRATIONS EVEN, WILL CONTINUE TO MONITOR, CALL LIGHT WITHIN REACH.
--- NOTE | 2017-03-10 18:12 | NUR ---
LAYING IN BED. IS RESTLESS AND CONFULSED. IN ROOM WITH PT.
--- NOTE | 2017-03-10 18:19 | NUR ---
PT RESTING IN BED VISITING , PT STATES NO NEEDS AT THIS TIME, WILL CONTINUE TO MONITOR, CALL LIGHT WITHIN REACH.
[2017-03-10 19:45] VITALS: BP 136/64
--- NOTE | 2017-03-10 21:20 | NUR ---
PT HS MEDS ADMINISTERED. PT DENIES NEEDS. BED LOW. CL IN REACH.
--- NOTE | 2017-03-10 23:00 | NUR ---
PT HAD EPISODED OF INCONTINENT B&B. PT COMPLETE BED CHANGE AND CLOTHING CHANGE DONE. PT DENIES NEEDS. BED LOW. CL IN REACH.
--- NOTE | 2017-03-11 01:15 | NUR ---
PT RESTING, EYES CLOSED. BED LOW. C DONNELL REACH.
--- NOTE | 2017-03-11 03:43 | NUR ---
PT CALLING OUT FOR HELP. AFTER ENTERING THE ROOM PT STATES HE "DIDN'T NEED ANYTHING" AND "DIDN'T REALIZE I WAS HOLLERING." WCTM. BED LOW. CL IN REACH.
--- NOTE | 2017-03-11 08:15 | NUR ---
DR Bridger GUO INTO SEE PATIENT. DR. Jayce CAMARGO INTO SEE PATIENT. IN ROOM WITH PATIENT WHEN BOTH DOCTORS HERE. NEW ORDERS RECEIVED
[2017-03-11 08:28] VITALS: BP 120/75
--- NOTE | 2017-03-11 10:22 | NUR ---
PATIENTS REMAINS IN ROOM. PATIENT IS MORE ALERT/ORIENT TODAY.
--- NOTE | 2017-03-11 10:23 | NUR ---
PRN TYLENOL GIVEN FOR PAIN UNDER RIGHT ARM.
--- NOTE | 2017-03-11 11:55 | NUR ---
GLUCOSE LEVEL 218. EIGHT UNITS OF SLIDING SCALE INSULIN GIVEN PER ORDER.
--- NOTE | 2017-03-11 14:47 | NUR ---
PATIENT HELPED BACK TO BED BY THIS NURSE AND TWO THERAPIST. WHEELCHAIR TO SLIDING BOARD. TOTAL ASST.
--- NOTE | 2017-03-11 16:18 | NUR ---
FAXED REFERRAL TO THE [facility] FOR POSSIBLE ADMISSION PER SPOUSE REQUEST. FAXED WITH CONFORMATION RECIEVED
--- NOTE | 2017-03-11 17:32 | NUR ---
GLUCOSE LEVEL 118. NO SLIDING SCALE INSULIN GIVEN. DEMETRICE IN PATIENTS ROOM TO HELP WITH SUPPER
--- NOTE | 2017-03-11 18:36 | NUR ---
RESTING QUIETLY IN BED. CALL LIGHT IN REACH
[2017-03-11 19:40] VITALS: BP 128/72
--- NOTE | 2017-03-11 22:20 | NUR ---
PT HS MEDS ADMINISTERED. PT DENIES NEEDS. WCTM. BED LOW. CL IN REACH.
--- NOTE | 2017-03-11 23:43 | NUR ---
PT RESTING, EYES CLOSED. RR ARE EVEN AND UNLABORED. WCTM. BED LOW. CL IN REACH.
--- NOTE | 2017-03-12 01:35 | NUR ---
PT BRIEF CHANGED. PT DENIES NEEDS AND WENT RIGHT BACK TO SLEEP. CPAP IN PLACE. WCTM. BED LOW. CL IN [facility].
--- NOTE | 2017-03-12 03:38 | NUR ---
PT RESTING, EYES CLOSED. BED LOW. CL IN REACH.
--- NOTE | 2017-03-12 06:12 | NUR ---
PT AM MEDS ADMINISTERED. PT COMPLETE BED/BRIEF CHANGE DONE. CPAP IN PLACE. PT DENIES NEEDS. BED LOW. CL IN REACH.
[2017-03-12 07:05] LABS: HEMATOCRIT 30.6 % (42.0-54.0); HEMOGLOBIN 9.7 g/dL (13.5-17.5); MCH 29.6 pg (26.0-34.0); MCHC 31.7 g/dL (31.0-37.0); MCV 93.3 fL (80.0-100.0); MEAN PLATELET VOLUME 9.3 fL (7.4-10.4); PLATELET COUNT 442 10x3/uL (130-400); RBC 3.28 10x6/uL (4.20-6.10); WBC 21.6 10x3/uL (4.8-10.8)
[2017-03-12 07:18] LABS: CALC OSMOLALITY 286 mosm/kg (275-300); CALCIUM 10.4 mg/dL (8.5-10.1); CARBON DIOXIDE 26.9 mmol/L (21.0-32.0); CHLORIDE - SERUM 105 mmol/L (98-107); CREATININE - SERUM 0.9 mg/dL (0.6-1.3); GLUCOSE 164 mg/dL (74-106); POTASSIUM - SERUM 3.8 mmol/L (3.5-5.1); SODIUM 142 mmol/L (136-145); UREA NITROGEN 13 mg/dL (7-18); eGFR NON AFRICAN AMERICAN 89 mL/min (90-120)
[2017-03-12 08:00] VITALS: BP 112/60
--- NOTE | 2017-03-12 08:00 | NUR ---
PATIENTS IN ROOM. HELPING PATIENT EAT. PATIENT HAS SOME CONFUSION. KNOWS SELF, , STAFF, PLACE. NO ORIENT TO TIME OR SITUATION. DR Bridger GUO INTO SEE PATIENT. NEW ORDERS RECEIVED
[2017-03-12 08:05] LABS: EOSINOPHILS 2 % (0-7); LYMPHOCYTES 3 % (15-50); MONOCYTES 6 % (2-11); NEUTROPHILS 82 % (40-80); PLATELET ESTIMATE INCREASED
--- NOTE | 2017-03-12 10:33 | NUR ---
PATIENT INCONT OF URINE. TOLTAL ASST OF TWO TO CHANGE PATIENT AND GIVE KALYAN CARE.
--- NOTE | 2017-03-12 11:55 | NUR ---
GLUCOSE LEVEL 182. FOUR UNITS OF SLIDING SCALE INSULIN GIVEN. GRAY, SPEECH THERAPIST WORKING WITH PATIENT FOR LUNCH.
--- NOTE | 2017-03-12 15:44 | NUR ---
PATIENT REMAINS IN CONTACT ISOLATION. HAS VISITORS IN ROOM. FOLLOWING ISOLATION PRECAUTIONS.
--- NOTE | 2017-03-12 18:18 | NUR ---
RESTING QUIETLY IN BED. CALL LIGHT IN REACH
--- NOTE | 2017-03-12 20:00 | NUR ---
WITH 'S PARTICIPATION, PATIENT WAS CLEANSED AND CHANGED FROM LARGE URINE, AND MEDIUM VOLUME LOOSE STOOL INCONTINENCES. AIR PAD, ADULT DIAPER AND MALE INCONTINENCE PADS WERE CHANGED.
[2017-03-12 22:30] VITALS: BP 122/65
--- NOTE | 2017-03-12 22:30 | NUR ---
FSBS 156. GAVE PATIENT 4 UNITS SLIDING SCALE REGULAR INSULIN SC IN RIGHT UPPER ARM. PATIENT IS ORIENTED TO SELF ONLY. ASSESSMENT AND HS MEDS COMPLETE. CLEANSED PATIENT AND CHANGED HIS MALE INCONTINENCE PAD AFTER LARGE URINE INCONTINENCE.
--- NOTE | 2017-03-13 00:10 | NUR ---
IN BED, EYES CLOSED. CONTINUES ON CPAP WITH MASK IN PLACE.
--- NOTE | 2017-03-13 02:10 | NUR ---
CLEANSED PATIENT AND CHANGED HIS DRAW SHEET, BLUE AIR PADS, ADULT DIAPER AND MALE INCONTINENCE PAD DUE TO EXTREMELY LARGE URINARY INCONTINENCE. REMAINS ORIENTED X1 AND QUITE CONFUSED.
[2017-03-13 07:00] VITALS: BP 105/55
--- NOTE | 2017-03-13 07:00 | NUR ---
PT WAS RECEIVED AT THE BEGINNING OF THIS SHIFT IN BED WITH EYES CLOSED. VITAL SIGNS; TEMP. 99.0, PULSE 95, RESP. 19, B/P 105/55, 02SAT. 99%. NO SIGNS OF ANY DISCOMFORT OR DISTRESS. WILL BE GIVING HIM TOTAL ASSIST WITH ALL ADL'S. PT IS ON ISOLATION FOR C-DIFF. WILL BE MONITORING HIM.
--- NOTE | 2017-03-13 18:50 | NUR ---
PT HAS HAD AN UNEVENTFUL DAY TODAY. SHE WAS GIVEN TYLENOL 650MG THIS MORNING AT 0950 AND AGAIN AT 5:35PM PER REQUEST OF HIS . PT. WAS GIVEN A BED BATH TODAY AND VERY GOOD PERINEAL CARE FOR EACH INCONTINENT EPISODE. HAS BEEN HERE MOST OF THE DAY.
--- NOTE | 2017-03-13 19:25 | NUR ---
IN BED. SAYS SHE JUST ASSISTED PATIENT TO USE THE URINAL. PATIENT DENIES CURRENT NEEDS.
--- NOTE | 2017-03-13 21:10 | NUR ---
RECENTLY DEPARTED FOR HOME. EXPRESSED HER FRUSTRATION WITH PATIENT AND HIS CONFUSION AND DEPENDENCE ON HER PRESENCE AT BEDSIDE TO PERFORM PHYSICALLY AND MENTALLY. ASKED ME JOKINGLY, "CAN I THROW SOME ICE WATER ON HIM?" ADMITTED MY FRUSTRATION ALSO, BUT TOLD HER, "NOW YOU WOULDN'T LET ME DO THAT WOULD YOU?" MRS. BURDEN IS VERY FRUSTRATED THAT HER IS NOT PROGRESSING PHYSICALLY, AND WITHOUT A SPECIFIC DIAGNOSIS REGARDING HIS IMPAIRED COGNITION, WONDERS IF HE MENTAL STATUS WILL IMPROVE OVER TIME. SHE IS A VERY GOOD AND DEDICATED CAREGIVER TO HER , BUT IS BEING WORN DOWN BY THE TASK.
[2017-03-13 22:10] VITALS: BP 129/73
--- NOTE | 2017-03-13 22:30 | NUR ---
RESTING QUIETLY IN BED, EYES CLOSED.
--- NOTE | 2017-03-13 23:35 | NUR ---
PATIENT CALLING OUT FOR HELP. ASKED HIM WHAT HE NEEDED. SAID A COLONEL WAS TELLING HIM HE NEEDED TO DO SOMETHING. REMINDED HIM HE IS IN THE HOSPITAL. CLEANSED HIM AND CHANGED HIS MALE INCONTINENCE PAD DUE TO SATURATION WITH URINE.
--- NOTE | 2017-03-14 01:55 | NUR ---
CLEANSED AND CHANGED PATIENT FROM VERY LARGE URINE INCONTINENCE AND SMALL VLOUME UNFORMED BM INCONTINENCE.
--- NOTE | 2017-03-14 04:45 | NUR ---
RESTING QUIETLY FOR THE MOMENT. CPAP MASK IN PLACE.
--- NOTE | 2017-03-14 06:15 | NUR ---
FSBS 140. GAVE PATIENT SCHEDULED MEDS AND THEN CLEANSED AND CHANGED PATIENT FROM VERY LARGE URINARY INCONTINENCE REQUIRING REPLACEMENT OF BLUE AIR PADS, ADULT DIAPER AND MALE INCONTINENCE PAD. PATIENTMAKES ONLY MARGINAL EFFORT TO HELP WITH TURNING. TRIES TO RESIST FULL TURN TO EITHER SIDE DUE TO GENERAL DISCOMFORT.
[2017-03-14 07:00] VITALS: BP 113/65
--- NOTE | 2017-03-14 07:00 | NUR ---
PT WAS RECEIVED IN BED AT THE BEGINNING OF THIS SHIFT. HE WAS RESTING WITH EYES CLOSED. HIS CAME SHORTLY THERAFTER. VITAL SIGNS; TEMP. 98.0, PULSE 82, RESP. 20, B/P 113/65, 02SAT. 98%. PT. IS TOTAL CARE. ALL ADL'S ARE ASSISTED PER NURSE AND . STABLE CONDITION OBSERVED.
--- NOTE | 2017-03-14 18:33 | NUR ---
PT. HAS BEEN KEPT CLEAN AND DRY ALL DAY LONG. TYLENOL 650MG HAS BEEN GIVEN SEVERAL TIMES TODAY WELL. HE RESTED THIS AFTERNOON WHILE HIS WENT HOME TO WALK THE DOGS. NO SIGNS OF DISTRESS FOUND. PT. IS DISCHARGING TOMORROW.
[2017-03-14 19:50] VITALS: BP 118/65
--- NOTE | 2017-03-14 19:50 | NUR ---
PT SPOUSE AT BEDSIDE ASSISTING WITH NEEDS. PT IS AWAKE, A &OX2. PT SPOUSE STATES SHE IS EXCITED ABOUT THEIR NEXT MOVE, DENIES NEEDS. WCTM. BED LOW. CL IN REACH.
--- NOTE | 2017-03-14 21:00 | NUR ---
PT HS MEDS ADMINISTERED. PT DENIES NEEDS. WCTM. BED LOW. CL IN REACH.
--- NOTE | 2017-03-14 22:25 | NUR ---
PT RESTING, EYES CLOSED. BED LOW. CL IN REACH.
--- NOTE | 2017-03-15 00:25 | NUR ---
PT RESTING, EYES CLOSED. BED LOW. CL IN REACH. CPAP IN PLACE.
--- NOTE | 2017-03-15 03:17 | NUR ---
PT RESTING, EYES CLOSED. BED LOW. CL IN REACH. CPAP IN PLACE.
--- NOTE | 2017-03-15 06:01 | NUR ---
PT FSBS REQUIRED NO INSULIN THIS AM. PT AM EYE DROPS ADMINISTERED. PT CHANGED OF INCONT URINE. PT DENIES NEEDS. BED LOW. CL IN REACH.
[2017-03-15 07:08] LABS: BASOPHILS 0.2 % (0-2); EOSINOPHILS 2.4 % (0-7); HEMATOCRIT 36.1 % (42.0-54.0); HEMOGLOBIN 11.5 g/dL (13.5-17.5); IMMATURE GRANULOCYTES 0.8 % (0-5); LYMPHOCYTES 15.9 % (15-50); MCH 29.8 pg (26.0-34.0); MCHC 31.9 g/dL (31.0-37.0); MCV 93.5 fL (80.0-100.0); MEAN PLATELET VOLUME 8.7 fL (7.4-10.4); MONOCYTES 6.4 % (2-11); NEUTROPHILS 74.3 % (40-80); PLATELET COUNT 645 10x3/uL (130-400); RBC 3.86 10x6/uL (4.20-6.10); RDW 17.7 % (11.5-14.5); WBC 30.6 10x3/uL (4.8-10.8)
[2017-03-15 07:29] LABS: CALC OSMOLALITY 276 mosm/kg (275-300); CALCIUM 11.9 mg/dL (8.5-10.1); CARBON DIOXIDE 26.1 mmol/L (21.0-32.0); CHLORIDE - SERUM 101 mmol/L (98-107); CREATININE - SERUM 0.8 mg/dL (0.6-1.3); GLUCOSE 147 mg/dL (74-106); POTASSIUM - SERUM 4.5 mmol/L (3.5-5.1); SODIUM 137 mmol/L (136-145); UREA NITROGEN 13 mg/dL (7-18); eGFR NON AFRICAN AMERICAN > 90 mL/min (90-120)
[2017-03-15] MEDS ORDERED: VIBRAMYCIN 100100 MG PO (07:59)
[2017-03-15] MEDS ORDERED: PROSCAR5 MG PO (08:00)
--- NOTE | 2017-03-15 08:00 | NUR ---
PATIENT CONFUSED. ALERT/ORIENT TO SELF ONLY THIS AM. IN ROOM. CONTACT ISOLATION MAINTAINED FOR C-DIFF IN STOOL. POSSIBLE DISCHARGE TODAY TO [facility]. CALL LIGHT WITHIN REACH. BED ALARM ON
[2017-03-15 08:11] VITALS: BP 111/70
--- NOTE | 2017-03-15 10:15 | NUR ---
DR Bridger GUO INTO SEE PATIENT. NEW ORDERS RECEIVED
--- NOTE | 2017-03-15 12:00 | NUR ---
GLUCOSE LEVEL 215. EIGHT UNITS OF SLIDING SCALE INSULIN VANE
--- NOTE | 2017-03-15 12:18 | NUR ---
PATIENT DISCHARGING TO THE [facility] VIA FACILITY VAN. NO HOME HEALTH OR DME NEEDED AT THIS TIME. AN APPOINTMENT WITH PATIENT PCP WILL BE MADE AT TIME OF DISCHARGE FROM FACILITY. PATIENT CHOICE FORM FOR SNF AND [facility] FORM SIGNED, EXPLAINED AND FILED IN CHART.
--- NOTE | 2017-03-15 14:04 | NUR ---
DISCHARGE REPORT CALLED TO THE [facility]. THIS NURSE GAVE REPORT TO MATT BYNUM. THIS NURSE REQUESTED FACILITY BRING A LARGE WHEELCHAIR FOR PATIENTS TRANSFER.
--- NOTE | 2017-03-15 15:51 | NUR ---
[facility] HERE TO SEAT COVERS TRIMMER PATIENT. IN ROOM AND WILL FOLLOW PATIENT OVER TO [facility]. TOTAL ASST TO HELP PATIENT INTO WHEELCHAIR.
--- NOTE | 2017-03-15 15:54 | NUR ---
PT LEFT FLOOR IN W/C. AT HIS SIDE WITH PERSONAL BELONGINGS. HE D/C TO THE [facility]
== END 2017-03-15 15:57 | DRG 70 ==
LOC: D.REHAB 15:35
PROVIDERS: Student in an Organized Health Care Education/Training Program; ADMIT Emergency Medicine
DX: G93.41 Metabolic encephalopathy (principal); A41.4 Sepsis due to anaerobes; I42.9 Cardiomyopathy, unspecified; N39.0 Urinary tract infection, site not specified; E87.0 Hyperosmolality and hypernatremia; E46 Unspecified protein-calorie malnutrition; C85.94 Non-Hodgkin lymphoma, unspecified, lymph nodes of axilla and upper limb; N17.9 Acute kidney failure, unspecified; I82.411 Acute embolism and thrombosis of right femoral vein; L89.302 Pressure ulcer of unspecified buttock, stage 2; R13.12 Dysphagia, oropharyngeal phase; D64.9 Anemia, unspecified; D72.829 Elevated white blood cell count, unspecified; I10 Essential (primary) hypertension; I20.9 Angina pectoris, unspecified; R53.1 Weakness; F41.9 Anxiety disorder, unspecified; E83.52 Hypercalcemia; R15.9 Full incontinence of feces; R32 Unspecified urinary incontinence; M06.9 Rheumatoid arthritis, unspecified; E11.9 Type 2 diabetes mellitus without complications; E83.42 Hypomagnesemia

== ENCOUNTER 2017-03-22 15:47 | Inpatient (IN) | payer MEDICARE, OTHER ==
[~2017-03-22] VITALS: Ht 188 cm; Wt 108.9 kg
--- NOTE | ~2017-03-22 | OP ---
PATIENT NAME: UBALDO BURDEN MEDICAL RECORD: [id number] :47 LOCATION:[id number] ADMISSION DATE:03/22/17 SURGEON: YINKA VELAZCO MD DATE OF OPERATION: 04/02/2017 PREOPERATIVE DIAGNOSES: 1. Right chest abscess. 2. Right axillary hematoma. 3. Lymphoma. 4. Acute renal failure. 5. Atrial fibrillation. 6. Diabetes mellitus. 7. Hypertension. 8. Coronary artery disease. POSTOPERATIVE DIAGNOSES: 1. Right chest abscess. 2. Right axillary hematoma. 3. Lymphoma. 4. Acute renal failure. 5. Atrial fibrillation. 6. Diabetes mellitus. 7. Hypertension. 8. Coronary artery disease. PROCEDURES: 1. I&D of the right chest abscess. 2. Ultrasound evaluation of right axillary hematoma. SURGEON: Yinka Velazco MD. REPORT OF PROCEDURE: The patient's right chest and axilla were prepped and draped in sterile fashion. A skin incision was made over the area of fluctuance and there was a scant amount of purulent and bloody material removed. Cultures were taken times 2. We probed the area and saw there was a large pocket that was present. We irrigated out this pocket with peroxide and saline solution and then packed the wound with quarter-inch packing strips dipped in peroxide. We then inspected the patient's right axilla. There was some edema and what appeared to be some small areas of hematoma present, but there were not anything that appeared to be drainable. Due to the fact the patient was already on blood thinners, I elected not to perform any further surgery on the right axilla. COMPLICATIONS: None. CONDITION: Stable. ANESTHESIA: General endotracheal. BLOOD LOSS: 30 mL. TRANSINT:[id number] Voice Confirmation ID: [id number] DOCUMENT ID: [id number] OPERATIVE REPORT [id number] VALARIELexiYINKA RAMIREZ MD CC: [id number] DICTATION DATE: 04/02/171211 TON CONTAINER FILLER: 04/02/17 2321 ADM IN [id number] [place] [address]
[~2017-03-22 15:47] MED LIST changes: +PROSCAR5 MG PO; +VIBRAMYCIN 100100 MG PO
[2017-03-22 20:10] LABS: APPEARANCE CLEAR (CLEAR); BILIRUBIN NEGATIVE (NEGATIVE); COLOR YELLOW (YELLOW); GLUCOSE NEGATIVE (NEGATIVE); KETONE NEGATIVE (NEGATIVE); LEUKOCYTE ESTERASE NEGATIVE (NEGATIVE); NITRITE NEGATIVE (NEGATIVE); PROTEIN NEGATIVE (NEGATIVE); SPECIFIC GRAVITY 1.015 (1.005-1.020); UROBILINOGEN NORMAL (NORMAL)
[2017-03-22 20:10] LABS: ALBUMIN 2.3 g/dL (3.4-5.0); ALKALINE PHOSPHATASE 147 U/L (46-116); ALT (SGPT) 248 U/L (10-68); BILIRUBIN - TOTAL 0.32 mg/dL (0.2-1.3); CALC OSMOLALITY 284 mosm/kg (275-300); CARBON DIOXIDE 22.9 mmol/L (21.0-32.0); CHLORIDE - SERUM 104 mmol/L (98-107); CREATININE - SERUM 0.9 mg/dL (0.6-1.3); GLUCOSE 130 mg/dL (74-106); POTASSIUM - SERUM 4.9 mmol/L (3.5-5.1); PROTEIN - SERUM 6.8 g/dL (6.4-8.2); SODIUM 138 mmol/L (136-145); UREA NITROGEN 31 mg/dL (7-18); eGFR NON AFRICAN AMERICAN 89 mL/min (90-120)
[2017-03-22 20:14] LABS: CALCIUM 14.6 mg/dL (8.5-10.1)
[2017-03-22 20:22] LABS: HEMATOCRIT 34.5 % (42.0-54.0); MCH 30.3 pg (26.0-34.0); MCHC 31.9 g/dL (31.0-37.0); MEAN PLATELET VOLUME 8.9 fL (7.4-10.4); PLATELET COUNT 723 10x3/uL (130-400); RBC 3.63 10x6/uL (4.20-6.10); RDW 18.3 % (11.5-14.5); WBC 49.5 10x3/uL (4.8-10.8)
[2017-03-22 20:54] LABS: EOSINOPHILS 1 % (0-7); LYMPHOCYTES 13 % (15-50); MONOCYTES 2 % (2-11); NEUTROPHILS 82 % (40-80); PLATELET ESTIMATE INCREASED
--- NOTE | 2017-03-23 01:22 | NUR ---
PATIENT RECEIVED TO ROOM VIA STRETCHER. ALERT AND DISORIENTED. PRESENT AND ANSWERING QUESTIONS. ORDERS REVEIWED. NO NEEDS VOICED. BED LOW. CALL LIGHT IN REACH. SVETA ALARM ON.
[2017-03-23 01:36] VITALS: BP 96/44; BMI 30.8
[2017-03-23 04:00] VITALS: BP 99/50
[2017-03-23 06:38] LABS: CALC OSMOLALITY 283 mosm/kg (275-300); CARBON DIOXIDE 24.9 mmol/L (21.0-32.0); CHLORIDE - SERUM 105 mmol/L (98-107); CREATININE - SERUM 0.8 mg/dL (0.6-1.3); GLUCOSE 126 mg/dL (74-106); SODIUM 138 mmol/L (136-145); UREA NITROGEN 28 mg/dL (7-18); eGFR NON AFRICAN AMERICAN > 90 mL/min (90-120)
[2017-03-23 07:01] LABS: POTASSIUM - SERUM 3.6 mmol/L (3.5-5.1)
[2017-03-23 07:02] LABS: CALCIUM 13.2 mg/dL (8.5-10.1)
[2017-03-23 08:17] VITALS: BP 106/57
--- NOTE | 2017-03-23 08:50 | NUR ---
PT AOX1 RESP EVEN AND NONLABORED SRX2 CALL LIGHT WITHIN REACH BED AT LOWEST SETTING IV TO RIGHT FOREARM PATENT AND INTACT. KERLEX TO RIGHT FOREARM TO PROTECT IV LINE. WILL CONTINUE TO MONITOR
[2017-03-23 10:29] LABS: BASOPHILS 0.1 % (0-2); EOSINOPHILS 0.4 % (0-7); HEMATOCRIT 32.4 % (42.0-54.0); HEMOGLOBIN 10.1 g/dL (13.5-17.5); IMMATURE GRANULOCYTES 1.1 % (0-5); LYMPHOCYTES 13.8 % (15-50); MCH 29.9 pg (26.0-34.0); MCHC 31.2 g/dL (31.0-37.0); MCV 95.9 fL (80.0-100.0); MEAN PLATELET VOLUME 8.7 fL (7.4-10.4); MONOCYTES 6.5 % (2-11); NEUTROPHILS 78.1 % (40-80); PLATELET COUNT 633 10x3/uL (130-400); RBC 3.38 10x6/uL (4.20-6.10); RDW 18.4 % (11.5-14.5); WBC 40.3 10x3/uL (4.8-10.8)
[2017-03-23 11:16] LABS: INR 1.39 (0.85-1.17)
[2017-03-23 11:17] LABS: APTT 37.9 SECONDS (22.8-39.4)
[2017-03-23 12:08] VITALS: BP 101/52
--- NOTE | 2017-03-23 16:19 | NUR ---
Patient Name: UBALDO BURDEN Admission Status: ER Accout number: [id number] Admission Date: 03-22-2017 : 1945 Admission Diagnosis: Attending: LM Current LOS: 1 Anticipated DC Date: 03-30-2017 Planned Disposition: Care Home Facility Primary Insurance: MEDICARE A & B Discharge Planning Comments: CM MET WITH PATIENTS (SAMAN) REGARDING D/C NEEDS AND PLANS. STATED THEY HAVE A RAMP AT THERE HOME AND NO STEPS INSIDE. PATIENT CAME FROM THE [facility]. PATIENT HAS A WALKER, SHOWER CHAIR, AND RAISED TOILET SEAT AT HOME. PATIENT IS TOTALLY DEPENDENT WITH HIS CARE. PATIENTS PCP IS DR. FRANK AND PHARMACY IS [facility] AT THE [facility]. PATIENTS STATED HE MIGHT GO BACK TO THE [facility] OR SHE MIGHT TAKE HIM HOME WITH HOME HEALTH. STATED SHE HAS NOT DECIDED WHAT TO DO YET. CM WILL CONTINUE TO FOLLOW PATIENT WITH D/C NEEDS AND PLANS. PCP DR. [facility] [phone] SAMAN (SPOUSE) [phone] OR [phone] Monologist: Saritha Gates Is the patient Alert and Oriented? No 0 * How many steps to enter\exit or inside your home? RAMP 0 * PCP DR. FRANK [place] * Pharmacy [facility] 0 * Preadmission Environment Care Home Facility 0 * Facility Name [facility] 0 * ADLs Total Dependent 0 * Equipment Elevated [place] Seat Shower Chair Walker 0 * List name and contact numbers for known caregivers / representatives who currently or will assist patient after discharge: SAMAN [place] [phone] USE THIS NO CELL SERVICE AT HOME. IF NO ONE ANSWERS USE CELL NUMBER [phone] * Community resources currently utilized None 0 * Additional services required to return to the preadmission environment? Yes 0 * Can the patient safely return to the preadmission environment? Yes 0 * Has this patient been hospitalized within the prior 30 days at any hospital? No 0 Grand Total: 0
[2017-03-23 16:28] VITALS: BP 121/50
[2017-03-23 20:00] VITALS: BP 104/52
--- NOTE | 2017-03-23 20:22 | NUR ---
AWAKE WITH CONFUSION NOTED. ORIENTED TO NAME ONLY. DRSG TO RIGHT CHEST INTACT WIHT DRAINAGE NOTED. EDEMA TO RIGHT HAND. EV INFUSING TO RIGHT AC WIHTOUT REDNESS OR EDEMA NOTED. CL IN REACH BOX ALARM ON.
--- NOTE | 2017-03-24 01:36 | NUR ---
POSITIONED FOR COMFORT. NO DISTRESS NOTED.
--- NOTE | 2017-03-24 02:00 | NUR ---
PT IN BED [facility]. PT CONFUSED. PT NOT ABLE TO BE RE-ORIENTED AT THIS TIME. SIDE RAILS X 2. BED LOW. CALL LIGHT IN REACH.
--- NOTE | 2017-03-24 02:45 | NUR ---
PT HAS BEEN REFUSING TXS ALL NIGHT AND HAS BEEN VERY DISRUPTIVE AND COMBATIVE, PT IS FINALLY RESTING QUIETLY, DECIDED TO NOT WAKE UP THE PATIENT
[2017-03-24 04:00] VITALS: BP 157/65
--- NOTE | 2017-03-24 05:23 | NUR ---
POSITIONED FOR COMFORT. NO CHANGE IN ASSESSMENT.
[2017-03-24 06:35] LABS: BASOPHILS 0.2 % (0-2); EOSINOPHILS 0.5 % (0-7); HEMATOCRIT 34.6 % (42.0-54.0); HEMOGLOBIN 10.8 g/dL (13.5-17.5); IMMATURE GRANULOCYTES 1.1 % (0-5); MCH 29.8 pg (26.0-34.0); MCHC 31.2 g/dL (31.0-37.0); MCV 95.3 fL (80.0-100.0); MEAN PLATELET VOLUME 8.6 fL (7.4-10.4); MONOCYTES 7.3 % (2-11); NEUTROPHILS 78.9 % (40-80); PLATELET COUNT 568 10x3/uL (130-400); RBC 3.63 10x6/uL (4.20-6.10); RDW 18.4 % (11.5-14.5); WBC 44.2 10x3/uL (4.8-10.8)
[2017-03-24 06:53] LABS: ALBUMIN 1.9 g/dL (3.4-5.0); ALKALINE PHOSPHATASE 116 U/L (46-116); BILIRUBIN - TOTAL 0.34 mg/dL (0.2-1.3); CALC OSMOLALITY 290 mosm/kg (275-300); CARBON DIOXIDE 21.4 mmol/L (21.0-32.0); CHLORIDE - SERUM 113 mmol/L (98-107); CREATININE - SERUM 0.9 mg/dL (0.6-1.3); GLUCOSE 108 mg/dL (74-106); POTASSIUM - SERUM 3.5 mmol/L (3.5-5.1); PROTEIN - SERUM 6.6 g/dL (6.4-8.2); SODIUM 144 mmol/L (136-145); UREA NITROGEN 21 mg/dL (7-18); eGFR NON AFRICAN AMERICAN 89 mL/min (90-120)
[2017-03-24 07:10] LABS: CALCIUM 13.6 mg/dL (8.5-10.1)
[2017-03-24 07:11] LABS: ALT (SGPT) 140 U/L (10-68)
[2017-03-24 07:12] LABS: APTT 31.8 SECONDS (22.8-39.4); INR 1.45 (0.85-1.17); PROTIME 17.5 SECONDS (11.6-15.0)
[2017-03-24 08:25] VITALS: BP 148/73
--- NOTE | 2017-03-24 11:10 | NUR ---
LOOKED AT PT ONCOLOGY PROVIDER REQUESTED BY DR HUERTA. TO PAGE AT HIS REQUEST.
--- NOTE | 2017-03-24 13:42 | NUR ---
PT BLADDER SCANNED X 3 TIMES AFTER LARGE INCONT URINE VOID. NO URINE SEEN IN BLADDER
[2017-03-24 16:00] VITALS: Ht 188 cm; Wt 108.9 kg
[2017-03-24 16:01] VITALS: BP 132/68
--- NOTE | 2017-03-24 16:04 | NUR ---
1530 STAYED AT PATIENT BEDSIDE FOR REMAINDER OF TIME. PULSE OX REMAINS AT STEADY 94% THROUGHOUT COMPLETING MRI. WITH NO RESP DISTRESS, ALL OTHER VITALS REMAIN WNL. PATIENT TEST COMPLETED. DR. CALLAHAN CALLED. PIV REMOVED FROM RIGHT HAND WITH BANDAID APPLIED. D/C INSTRUCTIONS DISCUSSED WITH PATIENT. WHEELED OUT VIA WHEELCHAIR.
--- NOTE | 2017-03-24 20:32 | NUR ---
AWAKE,ALERT WITH CONFUSION NOTED. IV INFUSING TO RIGHT FOREARM WITHOUT REDNESS OR EDEMA NOTED. DRGS TO RIGHT CHEST DRY INTACT.TURNED AND POSITIONED FOR COMFORT X 2 PERSON ASSIST.
[2017-03-24 20:49] VITALS: BP 121/53
--- NOTE | 2017-03-25 02:53 | NUR ---
POAITIONED FOR COMFORT. NO DISTRESS NOTED.
[2017-03-25 04:00] VITALS: BP 103/65
--- NOTE | 2017-03-25 05:38 | NUR ---
POAITIONED FOR COMFORT. NO DISTRESS NOTED. CL IN REACH.
[2017-03-25 05:40] LABS: BASOPHILS 0.1 % (0-2); EOSINOPHILS 0.5 % (0-7); HEMATOCRIT 30.8 % (42.0-54.0); HEMOGLOBIN 9.5 g/dL (13.5-17.5); IMMATURE GRANULOCYTES 0.9 % (0-5); LYMPHOCYTES 12.4 % (15-50); MCH 29.3 pg (26.0-34.0); MCHC 30.8 g/dL (31.0-37.0); MCV 95.1 fL (80.0-100.0); MEAN PLATELET VOLUME 8.9 fL (7.4-10.4); MONOCYTES 6.4 % (2-11); NEUTROPHILS 79.7 % (40-80); PLATELET COUNT 582 10x3/uL (130-400); RBC 3.24 10x6/uL (4.20-6.10); RDW 18.5 % (11.5-14.5); WBC 38.6 10x3/uL (4.8-10.8)
[2017-03-25 05:51] LABS: ALBUMIN 1.9 g/dL (3.4-5.0); ALKALINE PHOSPHATASE 99 U/L (46-116); BILIRUBIN - TOTAL 0.38 mg/dL (0.2-1.3); CALC OSMOLALITY 292 mosm/kg (275-300); CARBON DIOXIDE 22.7 mmol/L (21.0-32.0); CHLORIDE - SERUM 115 mmol/L (98-107); CREATININE - SERUM 0.8 mg/dL (0.6-1.3); GLUCOSE 92 mg/dL (74-106); PROTEIN - SERUM 6.2 g/dL (6.4-8.2); SODIUM 146 mmol/L (136-145); UREA NITROGEN 18 mg/dL (7-18); eGFR NON AFRICAN AMERICAN > 90 mL/min (90-120)
[2017-03-25 05:53] LABS: ALT (SGPT) 99 U/L (10-68); CALCIUM 13.1 mg/dL (8.5-10.1); POTASSIUM - SERUM 2.8 mmol/L (3.5-5.1)
--- NOTE | 2017-03-25 06:42 | NUR ---
EYES CLOSED RESPIRATIONS WITH EASE AND UNLABORED.
--- NOTE | 2017-03-25 07:51 | NUR ---
PRIOR TO STARTING KCL INFUSION, FLUSHED IV WITH 10ML OF SALINE, AND ASPIRATED VISIBLE BLOOD RETURN. PATIENT'S RIGHT HAND IS SWOLLEN. IV IS LOCATED IN RIGHT ARM, LATERAL TO ELBOW. THERE IS AN IMMOBILIZER ON RIGHT ARM WITH KERLIX AROUND IT. REMOVED KERLIX AND ARM BOARD. RIGHT UPPER EXTREMETY IS ELEVATED ON A PILLOW.
[2017-03-25 08:12] VITALS: BP 110/55
--- NOTE | 2017-03-25 08:15 | NUR ---
APPLIED NEW ARM BAND TO LEFT WRIST, REMOVED ARM BAND FROM RIGHT WRIST. NOW AT BEDSIDE. NERVE SPECIALIST CHANGED PATIENT'S GOWN. PATIENT IS YELLING 'WATER'. BROUGHT PATIENT FRESH CUP OF ICE WATER. WITH ASSIST FROM NERVE SPECIALIST PULLED PATIENT UP IN BED ALL THE WAY. SAT HOB UP AT A 90 DEGREE ANGLE. ASSISTED PATIENT GETTING DRINKS OF WATER. PATIENT'S LEFT EYE HAS WHITE DRAINAGE AND EYE IS SHUT. CLEANED WITH WARM WET WASH CLOTH, PATIENT YELLING AND TRYING TO RESIST. HANDED WASH CLOTH TO PATIENT'S AND SHE CLEANED HIS EYE. PATIENT HAS DRESSING TO RIGHT UPPER CHEST FROM BIOPSY, THE DRESSING HAS A GAUZE DRESSING ON IT, THERE IS TOMATO SAUCE ON THE DRESSING. REMOVED. APPLIED STERILE 4X4 GAUZE AND CLOTH TAPE. LEFT FOOT HAS +2 PITTING EDEMA, STATED "HE HAS A DVT IN THAT FOOT." THE XARELTO IS ON HOLD FROM BIOPSY YESTERDAY, PAGED ADDISON OWENS TO ASK IF IT CAN BE RESTARTED. SPOKE WITH IR NURSE AND SHE SAID IT SHOULD BE ABLE TO BE RESTARTED BUT CHECK WITH DOCTOR. ASKED CLEO RN WITH RADIOLOGY TOLD HIM I HAVE ADDISON PAGED TO ASK HER BUT TO CHECK WITH HIM IF IT IS OKAY, HE SAID YES.
[2017-03-25 11:17] VITALS: BP 112/62
[2017-03-25 15:25] VITALS: BP 123/63
[2017-03-25 20:00] VITALS: BP 108/74
--- NOTE | 2017-03-25 20:50 | NUR ---
PATIENT RESTING IN BED. ALERT. CONFUSED AND SCREAMING OUT. UNABLE TO VOICE NEEDS. SCHEDULED MEDS GIVEN. SHIFT ASSESSMENT COMPLETED. BED LOW. CALL LIGHT IN REACH
[2017-03-26] VITALS: BP 121/68
[2017-03-26 04:00] VITALS: BP 70/40
--- NOTE | 2017-03-26 05:14 | NUR ---
PATIENT RESTING WITH EYES CLOSED AND NO VISIBLE SIGNS OF DISTRESS. I DELAYED THE IV PUMP AND INFORMED STAFFROSALVA GARNETTN THAT THE PATIENT NEEDS A NEW BAG OF FLUIDS. BED IN LOWEST POSITION, CALL LIGHT WITHIN REACH, AND THE BED ALARM IN ON.
[2017-03-26 06:59] LABS: BASOPHILS 0.1 % (0-2); EOSINOPHILS 0 % (0-7); HEMATOCRIT 31.3 % (42.0-54.0); HEMOGLOBIN 9.9 g/dL (13.5-17.5); IMMATURE GRANULOCYTES 0.8 % (0-5); LYMPHOCYTES 7.3 % (15-50); MCHC 31.6 g/dL (31.0-37.0); MCV 94.8 fL (80.0-100.0); MONOCYTES 1.9 % (2-11); NEUTROPHILS 89.9 % (40-80); PLATELET COUNT 525 10x3/uL (130-400); RDW 18.4 % (11.5-14.5); WBC 36.6 10x3/uL (4.8-10.8)
[2017-03-26 07:14] LABS: ALBUMIN 1.9 g/dL (3.4-5.0); ALKALINE PHOSPHATASE 88 U/L (46-116); ALT (SGPT) 74 U/L (10-68); CALC OSMOLALITY 292 mosm/kg (275-300); CALCIUM 12.1 mg/dL (8.5-10.1); CARBON DIOXIDE 19.8 mmol/L (21.0-32.0); CHLORIDE - SERUM 112 mmol/L (98-107); CREATININE - SERUM 0.7 mg/dL (0.6-1.3); GLUCOSE 211 mg/dL (74-106); POTASSIUM - SERUM 3.3 mmol/L (3.5-5.1); PROTEIN - SERUM 6.2 g/dL (6.4-8.2); SODIUM 143 mmol/L (136-145); UREA NITROGEN 17 mg/dL (7-18); eGFR NON AFRICAN AMERICAN > 90 mL/min (90-120)
[2017-03-26 11:35] VITALS: BP 124/68
--- NOTE | 2017-03-26 13:38 | NUR ---
WOUND CARE CONSULT: PLACED PT ON AIR OVERLAY MATTRESS (LOW AIR LOSS). NOTED THREE WOUNDS: LEFT BUTTOCK (@ COCCYX) 3CM X 3CM - WOUND BED RED, SHINY - EDGES PEELING - SMALL SEROUS DRAINAGE - NO ODOR (STAGE 2 PRESSURE INJURY) LEFT BUTTOCK (JUST BELOW COCCYX) 0.5CM X 0.5CM - WOUND BED RED/SHINY - EDGES PEELING - SMALL SEROUS DRAINAGE WITHOUT ODOR.(STAGE 2 PRESSURE INJURY) RIGHT BUTTOCK (@ COCCYX) 3CM X 3CM - RED/SHINY WOUND BED - PEELING EDGES- SMALL SEROUS DRAINAGE WITH NO ODOR. (STAGE 2 PRESSURE INJURY) RIGHT CLAVICAL AND AXILLA RED AND EDEMATOUS. BRUISING NOTED ON BILATERAL ARMS WITH SKIN TEAR ON LEFT (COVERED WITH TEGADERM DRESSING). PT IS INCONTINENT OF BOWELS AND BLADDER. HE IS CONFUSED. HE IS ON A TURN Q2H SCHEDULE (FROM LEFT TO BACK TO LEFT-D/T FX CLAVICAL ON RT) HE HAS A BED ALARM. WOUND CARE WILL CONTINUE TO MONITOR.
--- NOTE | 2017-03-26 14:36 | NUR ---
Nutrition Follow Up: Pt is very confused right now per RN. Pt is eating 50% meal avg on a regular [facility] soft diet with thin liquids. RN asked that vanilla Ensure be ordered for meals. +BM 03/24/17. Wt stable. Noted pt with multiple stage II ulcers. Labs reviewed - Glucose elevated. Meds noted. Pt with fair po intake. Will order Ensure TID. RD following.
[2017-03-26 16:00] VITALS: BP 118/64
[2017-03-26 20:00] VITALS: BP 110/60
--- NOTE | 2017-03-26 22:36 | NUR ---
PATIENT IS RESTING IN BED AND IS VERY AGITATED. I CHECKED THE PATIENT'S BLOOD GLUCOSE, RESULTS 210. NOTIFIED FLETCHER DOWLING OF RESULTS. I ALSO ATTEMPTED TO CALM THE PATIENT DOWN, HOWEVER, HE IS STILL AGITATED. THE PATIENT'S BED IS IN THE LOWEST POSITION, CALL LIGHT WITHIN REACH, AND BED ALARM IS ON. ENCOURAGED THE PATIENT TO CALL IF HE HAS NEEDS.
--- NOTE | 2017-03-26 22:57 | NUR ---
REC'D PATIENT LYING IN BED. ALERT AND ORIENTED X1. NO DISTRESS NOTED. ADMINISTERED MEDS PRESCRIBED. TOOK THEM FINE. INTRUCTED TO CALL IF NEEDED ANYTHING. WILL CHANGE WITH CONSULTING IT ARCHITECT. BED LOW, LOCKED, CALL LIGHT IN REACH, ALARM ON.
[2017-03-27] VITALS: BP 136/73
--- NOTE | 2017-03-27 03:23 | NUR ---
PATIENT IS YELLING OUT FROM ROOM. HAS RESTED SOME BUT NOT MUCH. WILL CONT TO MONITOR. BED LOW, LOCKED, CALL LIGHT IN REACH, ALARM ON.
[2017-03-27 04:00] VITALS: BP 115/62
[2017-03-27 05:52] LABS: BASOPHILS 0 % (0-2); EOSINOPHILS 0 % (0-7); HEMATOCRIT 31.5 % (42.0-54.0); IMMATURE GRANULOCYTES 0.7 % (0-5); LYMPHOCYTES 4.7 % (15-50); MCH 29.8 pg (26.0-34.0); MCHC 31.7 g/dL (31.0-37.0); MCV 93.8 fL (80.0-100.0); MEAN PLATELET VOLUME 8.6 fL (7.4-10.4); MONOCYTES 2.2 % (2-11); NEUTROPHILS 92.4 % (40-80); PLATELET COUNT 499 10x3/uL (130-400); RBC 3.36 10x6/uL (4.20-6.10); RDW 18.3 % (11.5-14.5); WBC 46.2 10x3/uL (4.8-10.8)
[2017-03-27 06:06] LABS: ALKALINE PHOSPHATASE 83 U/L (46-116); ALT (SGPT) 65 U/L (10-68); BILIRUBIN - TOTAL 0.21 mg/dL (0.2-1.3); CALC OSMOLALITY 292 mosm/kg (275-300); CALCIUM 10.5 mg/dL (8.5-10.1); CARBON DIOXIDE 23.7 mmol/L (21.0-32.0); CHLORIDE - SERUM 112 mmol/L (98-107); CREATININE - SERUM 0.7 mg/dL (0.6-1.3); GLUCOSE 177 mg/dL (74-106); PROTEIN - SERUM 5.8 g/dL (6.4-8.2); SODIUM 144 mmol/L (136-145); UREA NITROGEN 18 mg/dL (7-18); eGFR NON AFRICAN AMERICAN > 90 mL/min (90-120)
[2017-03-27 09:55] VITALS: BP 144/74
[2017-03-27 12:31] VITALS: BP 110/58
[2017-03-27 16:50] VITALS: BP 119/59
[2017-03-27 19:00] VITALS: BP 154/58
--- NOTE | 2017-03-27 23:19 | NUR ---
REC'D PATIENT LYING IN BED. YELLING OUT FOR HELP. ALERT AND ORIENTED X1. NO DISTRESS NOTED. PATIENT STATING THAT "I HURT". WILL ADMINISTER MEDS PRESCRIBED. INSTRUCTED TO CALL IF NEEDED ANYTHING. WILL CONT TO MONITOR. BED LOW, LOCKED, CALL LIGHT IN REACH, ALARM ON.
[2017-03-28 04:00] VITALS: BP 144/80
--- NOTE | 2017-03-28 04:00 | NUR ---
PT. ON FIRST STEP AIR MATTRESS AND HIS EYES ARE CLOSED AND RESP. EVEN. IV INFUSING VIA PUMP WITHOUT ANY ALARMS. CALL LIGHT WITHIN REACH.
[2017-03-28 06:52] LABS: BASOPHILS 0 % (0-2); EOSINOPHILS 0 % (0-7); HEMATOCRIT 34.5 % (42.0-54.0); HEMOGLOBIN 10.8 g/dL (13.5-17.5); IMMATURE GRANULOCYTES 0.8 % (0-5); LYMPHOCYTES 3.3 % (15-50); MCH 29.7 pg (26.0-34.0); MCHC 31.3 g/dL (31.0-37.0); MCV 94.8 fL (80.0-100.0); MEAN PLATELET VOLUME 9.2 fL (7.4-10.4); NEUTROPHILS 93.9 % (40-80); PLATELET COUNT 554 10x3/uL (130-400); RBC 3.64 10x6/uL (4.20-6.10); RDW 18.4 % (11.5-14.5); WBC 45.7 10x3/uL (4.8-10.8)
[2017-03-28 06:55] LABS: ALBUMIN 2.1 g/dL (3.4-5.0); ALKALINE PHOSPHATASE 82 U/L (46-116); ALT (SGPT) 67 U/L (10-68); BILIRUBIN - TOTAL 0.21 mg/dL (0.2-1.3); CALC OSMOLALITY 292 mosm/kg (275-300); CALCIUM 9.8 mg/dL (8.5-10.1); CARBON DIOXIDE 23.8 mmol/L (21.0-32.0); CHLORIDE - SERUM 109 mmol/L (98-107); CREATININE - SERUM 0.6 mg/dL (0.6-1.3); GLUCOSE 162 mg/dL (74-106); POTASSIUM - SERUM 3.3 mmol/L (3.5-5.1); PROTEIN - SERUM 5.9 g/dL (6.4-8.2); SODIUM 144 mmol/L (136-145); UREA NITROGEN 18 mg/dL (7-18); eGFR NON AFRICAN AMERICAN > 90 mL/min (90-120)
--- NOTE | 2017-03-28 07:55 | NUR ---
PT CONFUSED WITH AT BEDSIDE IV TO LEFT HAND PATENT AND INTACT SRX2 BED AT LOWEST SETTING CALL LIGHT WITHIN REACH OF WILL CONTINUE TO MONITOR
[2017-03-28 08:22] VITALS: BP 150/76
[2017-03-28 14:04] VITALS: BP 147/97
[2017-03-28 16:45] VITALS: BP 129/49
[2017-03-28 20:22] VITALS: BP 98/57
--- NOTE | 2017-03-28 20:32 | NUR ---
PATIENT RESTING IN BED WITH NO VISIBLE SIGNS OF DISTRESS. GAVE PATIENT WATER PER HIS REQUEST. CHECKED PATIENT'S BLOOD GLUCOSE, RESULTS 214. NOTIFIED FLETCHER DOWLING OF RESULTS. ENCOURAGED THE PATIENT TO CALL IF HE HAS NEEDS.
[2017-03-29] VITALS: BP 142/74
--- NOTE | 2017-03-29 01:25 | NUR ---
REC'D PATIENT LYING IN BED YELLING OUT FOR HELP. ALERT AND ORIENTED X1. STATES HE HAS PAIN BUT CANNOT TELL ME WHERE. NO DISTRESS NOTED. WILL CONT TO MONITOR GAVE A GLASS OF WATER AND HE DRANK EVERY OZ. INSTRUCTED TO CALL IF NEEDED ANYTHING. VERBALIZED UNDERSTANDING. BED LOW, LOCKED ,CALL LIGHT IN REACH, ALARM ON.
[2017-03-29 04:00] VITALS: BP 142/84
[2017-03-29 08:44] VITALS: BP 148/62
--- NOTE | 2017-03-29 09:11 | NUR ---
PT SEEN. AT BEDSIDE. DRY AT THE MOMENT. BED ALARM ON FOR SAFETY. STAGE 11 TO COCCYX WITH DRESSING CLEAN DRY AND INTACT. WILL CHANGE TODAY. CONFUSED TO PERSON, PLACE, AND TIME. CALL LIGHT IN REACH
[2017-03-29 11:01] LABS: BASOPHILS 0 % (0-2); EOSINOPHILS 0 % (0-7); HEMATOCRIT 33.3 % (42.0-54.0); HEMOGLOBIN 10.8 g/dL (13.5-17.5); IMMATURE GRANULOCYTES 0.8 % (0-5); LYMPHOCYTES 3.4 % (15-50); MCH 30.1 pg (26.0-34.0); MCHC 32.4 g/dL (31.0-37.0); MCV 92.8 fL (80.0-100.0); MONOCYTES 2.2 % (2-11); NEUTROPHILS 93.6 % (40-80); PLATELET COUNT 454 10x3/uL (130-400); RBC 3.59 10x6/uL (4.20-6.10); RDW 18.2 % (11.5-14.5)
[2017-03-29 11:28] LABS: ALBUMIN 1.9 g/dL (3.4-5.0); ALKALINE PHOSPHATASE 76 U/L (46-116); BILIRUBIN - TOTAL 0.24 mg/dL (0.2-1.3); CALCIUM 8.3 mg/dL (8.5-10.1); CARBON DIOXIDE 23.7 mmol/L (21.0-32.0); CHLORIDE - SERUM 104 mmol/L (98-107); CREATININE - SERUM 0.6 mg/dL (0.6-1.3); POTASSIUM - SERUM 3.1 mmol/L (3.5-5.1); PROTEIN - SERUM 5.3 g/dL (6.4-8.2); SODIUM 139 mmol/L (136-145); UREA NITROGEN 19 mg/dL (7-18); eGFR NON AFRICAN AMERICAN > 90 mL/min (90-120)
[2017-03-29 11:30] LABS: ALT (SGPT) 88 U/L (10-68); CALC OSMOLALITY 286 mosm/kg (275-300); GLUCOSE 219 mg/dL (74-106)
[2017-03-29 12:00] VITALS: BP 146/72
--- NOTE | 2017-03-29 16:50 | NUR ---
CM REASSESSMENT NOTE: CM WENT TO PATIENTS ROOM TO SPEAK TO AND SHE WAS NOT AT BEDSIDE. CM CALLED AND LEFT [facility]. TO CALL CM OR TO SEE CM TOMORROW WHEN SHE VISITED PATIENT. [facility] HAD CALLED CM TODAY STATING HAD CALLED THEM AND WAS INTERESTED IN HOME HEALTH FOR PATIENT. CM WILL CONTINUE TO FOLLOW PATIENT WITH D/C NEEDS AND PLANS.
[2017-03-29 16:56] VITALS: BP 101/55
--- NOTE | 2017-03-29 20:15 | NUR ---
REC'D PATIENT LYING IN BED ASLEEP WITH C-PAP ON. NO DISTRESS NOTED. WILL CONT TO MONITOR THROUGHOUT NIGHT. WILL ADMINISTER MEDS PRESCRIBED. BE LOW, LOCKED CALL LIGHT IN REACH, ALARM ON.
[2017-03-30 07:04] LABS: BASOPHILS 0.1 % (0-2); EOSINOPHILS 0 % (0-7); IMMATURE GRANULOCYTES 0.9 % (0-5); LYMPHOCYTES 3.8 % (15-50); MCH 29.9 pg (26.0-34.0); MCHC 32.4 g/dL (31.0-37.0); MCV 92.4 fL (80.0-100.0); MEAN PLATELET VOLUME 9.3 fL (7.4-10.4); MONOCYTES 4.3 % (2-11); NEUTROPHILS 90.9 % (40-80); PLATELET COUNT 473 10x3/uL (130-400); RBC 3.68 10x6/uL (4.20-6.10); RDW 18.2 % (11.5-14.5); WBC 52.4 10x3/uL (4.8-10.8)
[2017-03-30 07:14] LABS: ALBUMIN 1.8 g/dL (3.4-5.0); ALKALINE PHOSPHATASE 72 U/L (46-116); ALT (SGPT) 94 U/L (10-68); BILIRUBIN - TOTAL 0.31 mg/dL (0.2-1.3); CARBON DIOXIDE 26.5 mmol/L (21.0-32.0); CHLORIDE - SERUM 105 mmol/L (98-107); CREATININE - SERUM 0.7 mg/dL (0.6-1.3); SODIUM 141 mmol/L (136-145); UREA NITROGEN 19 mg/dL (7-18); eGFR NON AFRICAN AMERICAN > 90 mL/min (90-120)
[2017-03-30 07:23] LABS: CALC OSMOLALITY 285 mosm/kg (275-300); GLUCOSE 147 mg/dL (74-106)
[2017-03-30 07:25] LABS: POTASSIUM - SERUM 2.7 mmol/L (3.5-5.1)
--- NOTE | 2017-03-30 08:17 | NUR ---
AWAKE AND ALERT. ORIENTED X3. NO C/O AT THIS TIME. LUNGS HAVE FAINT CRACKLES IN UPPER LOBES, OCCASSIONAL PRODUCTIVE COUGH NOTED. SKIN IS INTACT WITHOUT REDNESS EXCEPT STAGE 2 TO COCCYX WHICH HAS A MEPELEX IN PLACE. ON FIRST STEP OVERLAY. IV TO RIGHT HAND PATENT WITHOUT REDNESS AT INSERTION SITE. DENIES NEEDS.
[2017-03-30 08:52] VITALS: BP 131/63
--- NOTE | 2017-03-30 09:30 | NUR ---
TOOK ALL OF AM MEDS WITHOUT DIFFICULTY. DENIES NEEDS.
--- NOTE | 2017-03-30 09:44 | NUR ---
CM REASSESSMENT NOTE: CM REC. CALL FROM PATIENTS REGARDING [facility]. PATIENTS STATED SHE HAD CALLED [facility] YESTERDAY AND HAD NOT HEARD FROM THEM. CM THEN CALLED [facility] AND EXPLAINED THAT PATIENTS WANTED TO SPEAK WITH THEM AND [facility] STATED THEY WILL CALL OR COME UP TO SPEAK WITH HER TODAY.
--- NOTE | 2017-03-30 12:15 | NUR ---
LUNCH SERVED IN ROOM. FEEDS SELF WITH SOME ASSISTANCE FROM . ATE ALMOST HALF OF TRAY. FSBS 196. GIVEN 2 UNITS HUMALOG SUBQ PER SS.
--- NOTE | 2017-03-30 13:25 | NUR ---
NUTRITION MONITORING & EVAL CHART REVIEWED, PT REMAINS IN ISOLATION. SPOUSE REPORTS PT WITH IMPROVING PO INTAKE. ~50% INTAKE LUNCH PLUS ENSURE. RD FOLLOWING
[2017-03-30 13:45] VITALS: BP 144/79
--- NOTE | 2017-03-30 15:06 | NUR ---
RESTING QUIETLY WITH CPAP IN PLACE. NO NEEDS NOTED.
--- NOTE | 2017-03-30 15:55 | NUR ---
INCONTINENT LARGE AMOUNT OF LOOSE YELLOWISH STOOL AND URINE. SKIN CARE PER STAFF.
[2017-03-30 16:55] VITALS: BP 153/67
--- NOTE | 2017-03-30 17:00 | NUR ---
C/O FEELING SOB. O2 SAT 96% ON RA. PLACED ON 1.5 L NC FOR COMFORT. AT BEDSIDE. FSBS 207. GIVEN 4 UNITS HUMALOG SUBQ PER SS. ASSISTED WITH MEAL. NO CHANGES NOTED. DENIES NEEDS.
--- NOTE | 2017-03-30 20:10 | NUR ---
ASSESSMENT COMPLETED, NO ACUTE DISTRESS NOTED, IV TO L HAND INFUSING WITH EASE, DENIES PAIN OR NEEDS AT THIS TIME, FALL AND ISOLATON PRECAUTIONS IN PLACE, CL IN REACH, WILL MONITOR
--- NOTE | 2017-03-30 22:35 | NUR ---
MEDS GIVEN PER MAR, WILIAN WELL, DENIES PAIN OR DISCOMFORT, FALL AND ISOLATION PRECAUTIONS IN PLACE, CL IN REACH, WILL MONITOR
[2017-03-31] VITALS: BP 105/61
[2017-03-31 06:12] LABS: BASOPHILS 0 % (0-2); EOSINOPHILS 0 % (0-7); HEMATOCRIT 33.8 % (42.0-54.0); HEMOGLOBIN 11.2 g/dL (13.5-17.5); IMMATURE GRANULOCYTES 0.9 % (0-5); LYMPHOCYTES 4.5 % (15-50); MCH 30.2 pg (26.0-34.0); MCHC 33.1 g/dL (31.0-37.0); MCV 91.1 fL (80.0-100.0); MEAN PLATELET VOLUME 9.6 fL (7.4-10.4); MONOCYTES 4.3 % (2-11); NEUTROPHILS 90.3 % (40-80); PLATELET COUNT 403 10x3/uL (130-400); RBC 3.71 10x6/uL (4.20-6.10); RDW 18.5 % (11.5-14.5); WBC 49.4 10x3/uL (4.8-10.8)
[2017-03-31 06:57] LABS: ALBUMIN 1.5 g/dL (3.4-5.0); ALKALINE PHOSPHATASE 112 U/L (46-116); CALC OSMOLALITY 278 mosm/kg (275-300); CALCIUM 7.7 mg/dL (8.5-10.1); CARBON DIOXIDE 25.7 mmol/L (21.0-32.0); CHLORIDE - SERUM 103 mmol/L (98-107); CREATININE - SERUM 0.6 mg/dL (0.6-1.3); GLUCOSE 117 mg/dL (74-106); POTASSIUM - SERUM 3.1 mmol/L (3.5-5.1); PROTEIN - SERUM 4.8 g/dL (6.4-8.2); SODIUM 138 mmol/L (136-145); UREA NITROGEN 18 mg/dL (7-18); eGFR NON AFRICAN AMERICAN > 90 mL/min (90-120)
[2017-03-31 07:00] LABS: ALT (SGPT) 327 U/L (10-68)
--- NOTE | 2017-03-31 08:02 | NUR ---
AWAKE AND ALERT. ORIENTED X3 THIS AM. LUNGS ARE CLEAR BILATERALLY,OCCASSIONAL DRY COUGH NOTED. SKIN IS INTACT WITHOUT REDNESS. WOUND TO RIGHT CLAVICAL WITH DRY INTACT DRESSING IN PLACE. IV TO LEFT HAND IS PATENT WITHOUT REDNESS AT INSERTION SITE. AT BEDSIDE. DENIES NEEDS.
[2017-03-31 09:01] VITALS: BP 117/69
--- NOTE | 2017-03-31 10:45 | NUR ---
IV TO LEFT HAND BURNING. RESITED TO LEFT UPPER ARM AFTER ONE ATTEMPT WITH 22G. IV TO LEFT HAND D/C WITH CATHETER INTACT.
[2017-03-31 12:00] VITALS: BP 132/63
--- NOTE | 2017-03-31 12:00 | NUR ---
FSBS 189. GIVEN 2 UNITS HUMALOG SUBQ PER SS. LUNCH SERVED IN ROOM.
--- NOTE | 2017-03-31 17:00 | NUR ---
FSBS 152. GIVNE 2 UNITS HUMALOG SUBQ PER SS. SUPPER SERVED IN ROOM. ASSISTED WITH MEAL. NO CHANGES NOTED.
[2017-03-31 17:56] VITALS: BP 111/49
[2017-03-31 19:00] VITALS: BP 113/70
--- NOTE | 2017-03-31 21:21 | NUR ---
AWAKE,ALERT,NO DISTRESS NOTED. PICC LINE INTACT TO RIGHT UPPER ARM WIHTOUT REDNESS OR EDEMA. IV INFUSING WIHTOUT DIFFICUTLY. CL IN REACH.
--- NOTE | 2017-04-01 02:57 | NUR ---
POSITIONED FOR COMFORT. NO COMPLAINTS VOICED. CL IN REACH.
--- NOTE | 2017-04-01 03:17 | NUR ---
RN NOTE: PT LYING IN SUPINE POSITION WITH EYES CLOSED. ENTERIC ISOLATION IN PLACE. TELEMETRY IN PLACE. RIGHT MID-LINE IV PATENT WITH 1/2 NS INFUSING AT 125 ML / HR. WILL CONTINUE TO MONITOR FOR NEEDS. CALL LIGHT WITHIN REACH.
[2017-04-01 04:00] VITALS: BP 138/54
[2017-04-01 05:52] LABS: BASOPHILS 0 % (0-2); EOSINOPHILS 0.5 % (0-7); HEMATOCRIT 33.1 % (42.0-54.0); HEMOGLOBIN 11.1 g/dL (13.5-17.5); LYMPHOCYTES 5.1 % (15-50); MCH 30.2 pg (26.0-34.0); MCHC 33.5 g/dL (31.0-37.0); MCV 89.9 fL (80.0-100.0); MEAN PLATELET VOLUME 9.4 fL (7.4-10.4); MONOCYTES 3.9 % (2-11); NEUTROPHILS 89.5 % (40-80); PLATELET COUNT 371 10x3/uL (130-400); RBC 3.68 10x6/uL (4.20-6.10); RDW 18.4 % (11.5-14.5); WBC 54.3 10x3/uL (4.8-10.8)
[2017-04-01 06:15] LABS: ALBUMIN 1.5 g/dL (3.4-5.0); ALKALINE PHOSPHATASE 107 U/L (46-116); BILIRUBIN - TOTAL 0.49 mg/dL (0.2-1.3); CALC OSMOLALITY 279 mosm/kg (275-300); CALCIUM 7.7 mg/dL (8.5-10.1); CHLORIDE - SERUM 106 mmol/L (98-107); CREATININE - SERUM 0.6 mg/dL (0.6-1.3); GLUCOSE 98 mg/dL (74-106); PROTEIN - SERUM 4.7 g/dL (6.4-8.2); SODIUM 140 mmol/L (136-145); UREA NITROGEN 16 mg/dL (7-18); eGFR NON AFRICAN AMERICAN > 90 mL/min (90-120)
[2017-04-01 06:17] LABS: ALT (SGPT) 220 U/L (10-68)
--- NOTE | 2017-04-01 06:39 | NUR ---
POAITIONED FOR COMFORT. NO CHANGE IN ASSESSMENT
[2017-04-01 08:44] VITALS: BP 129/66
[2017-04-01 13:04] VITALS: BP 135/54
[2017-04-01 17:00] VITALS: BP 133/71
[2017-04-01 20:00] VITALS: BP 129/53
--- NOTE | 2017-04-01 21:15 | NUR ---
AWAKE WIHT CONFUSION NOTED. IV INFUSING TO RIGHT MIDLINE WIHTOUT REDNESS OR EDEMA NOTED. DRSG TO RIGHT CLAVICAL AREA DRY/INTACT. NO COMPLAINTS VOICED. CL IN REACH.
[2017-04-02] VITALS: BP 137/47
--- NOTE | 2017-04-02 01:41 | NUR ---
POSITIONED FOR COMFORT. NO DISTRESS NOTED. CL IN REACH.
[2017-04-02 04:00] VITALS: BP 108/52
[2017-04-02 06:16] LABS: BASOPHILS 0 % (0-2); HEMATOCRIT 31.3 % (42.0-54.0); HEMOGLOBIN 10.3 g/dL (13.5-17.5); IMMATURE GRANULOCYTES 1.1 % (0-5); LYMPHOCYTES 5.8 % (15-50); MCH 29.7 pg (26.0-34.0); MCHC 32.9 g/dL (31.0-37.0); MCV 90.2 fL (80.0-100.0); MEAN PLATELET VOLUME 9.3 fL (7.4-10.4); MONOCYTES 5.7 % (2-11); NEUTROPHILS 86.4 % (40-80); PLATELET COUNT 331 10x3/uL (130-400); RBC 3.47 10x6/uL (4.20-6.10); RDW 18.6 % (11.5-14.5); WBC 45.7 10x3/uL (4.8-10.8)
[2017-04-02 06:23] LABS: ALBUMIN 1.4 g/dL (3.4-5.0); ALKALINE PHOSPHATASE 128 U/L (46-116); ALT (SGPT) 176 U/L (10-68); CALC OSMOLALITY 277 mosm/kg (275-300); CALCIUM 7.9 mg/dL (8.5-10.1); CHLORIDE - SERUM 104 mmol/L (98-107); CREATININE - SERUM 0.6 mg/dL (0.6-1.3); GLUCOSE 127 mg/dL (74-106); POTASSIUM - SERUM 3.4 mmol/L (3.5-5.1); PROTEIN - SERUM 4.7 g/dL (6.4-8.2); SODIUM 138 mmol/L (136-145); UREA NITROGEN 13 mg/dL (7-18); eGFR NON AFRICAN AMERICAN > 90 mL/min (90-120)
--- NOTE | 2017-04-02 08:34 | NUR ---
PT AOX4 RESP EVEN AND NONLABORED MIDLINE IV PATENT AND INTACT PT DENIES NEEDS AT THIS TIME BED AT LOWEST SETTING CALL LIGHT WITHIN REACH WILL CONTINUE TO MONITOR
[2017-04-02 08:58] VITALS: BP 142/60
--- NOTE | 2017-04-02 13:13 | NUR ---
MATIAS AND DR VELAZCO NOTIFIED. POSSIBLE PICC LINE INFILTRATED. JEFFERSONTHESIA RESTARTED IV LEFT WRIST.
[2017-04-02 13:33] VITALS: BP 104/64
--- NOTE | 2017-04-02 13:46 | NUR ---
Nutrition Follow Up: Chart reviewed. Pt is s/p I&D of chest mass. Prior to surgery pt was eating 54% meal avg on a regular [facility] soft diet with thin liquids. Pt was receiving vanilla Ensure with meals. I>O. +BM 04/01/17. No new wt. Meds noted including Humalog, Levemir, Vit C. Labs reviewed. Pt with fair po intake. Rec continue [facility] soft diet per HAND ENGRAVER recs. Will continue to send Ensure with meals. RD will continue to monitor pt progress.
[2017-04-02 20:29] VITALS: BP 142/72
--- NOTE | 2017-04-02 20:30 | NUR ---
ASSESSMENT COMPLETED, NO ACUTE DISTRESS NOTED, FALL AND ISOLATION PRECAUTIONS IN PLACE, BED LOW, ALARM ON, CL IN REACH, WILL MONITOR
--- NOTE | 2017-04-02 22:39 | NUR ---
MEDS GIVEN PER MAR, WILIAN WELL, NO DISTRESS NOTED, DENIES NEEDS, SAFETY MEASURES IN PLACE, CL IN REACH
[2017-04-02 23:40] VITALS: BP 139/70
--- NOTE | 2017-04-03 03:12 | NUR ---
IV FLUIDS HUNG PER MAR, WILIAN WELL, RESTING WITH EYES CLOSED, RESP WITH EASE, NO DISTRESS NOTED, FALL AND ISOLATION PRECAUTIONS IN PLACE, CL IN REACH
[2017-04-03 03:55] VITALS: BP 125/102
[2017-04-03 04:16] LABS: OVA + PARASITE EXAM Final report (())
--- NOTE | 2017-04-03 07:00 | NUR ---
PT REC'D FROM RAY JIMENEZ. RESTING IN BED WITH IN ROOM. INCONT. CARE PROVIDED DUE TO INCONTINENCE OF URINE. REPOSITIONED UP IN BED. DISORIENTED TO SITUATION. ABLE TO REORIENT. REGULAR HEART RATE AND RHYTHM. LUNG SOUNDS CLEAR AND EQUAL BILAT. BOWEL SOUNDS HYPOACTIVE X4 QUADRANTS. BED LOW, CALL LIGHT IN REACH, DENIES NEEDS. CPOC.
[2017-04-03 07:30] LABS: BASOPHILS 0 % (0-2); EOSINOPHILS 1.3 % (0-7); HEMATOCRIT 36.1 % (42.0-54.0); HEMOGLOBIN 11.6 g/dL (13.5-17.5); LYMPHOCYTES 5.7 % (15-50); MCH 30.1 pg (26.0-34.0); MCHC 32.1 g/dL (31.0-37.0); MCV 93.5 fL (80.0-100.0); MEAN PLATELET VOLUME 9.8 fL (7.4-10.4); MONOCYTES 6.5 % (2-11); NEUTROPHILS 85.5 % (40-80); PLATELET COUNT 305 10x3/uL (130-400); RBC 3.86 10x6/uL (4.20-6.10); RDW 19.1 % (11.5-14.5)
--- NOTE | 2017-04-03 08:00 | NUR ---
PATIENT IN BED RESTING QUIETLY. RESPIRATIONS EVEN AND UNLABORED. FAMILY AT BEDSIDE. SIDE RAILS UP X2. BED IN LOW POSITION. CALL LIGHT IN REACH.
[2017-04-03 08:53] VITALS: BP 148/63
[2017-04-03 09:43] LABS: ALBUMIN 1.5 g/dL (3.4-5.0); ALKALINE PHOSPHATASE 153 U/L (46-116); BILIRUBIN - TOTAL 0.42 mg/dL (0.2-1.3); CALC OSMOLALITY 272 mosm/kg (275-300); CALCIUM 8.3 mg/dL (8.5-10.1); CARBON DIOXIDE 28.4 mmol/L (21.0-32.0); CHLORIDE - SERUM 104 mmol/L (98-107); CREATININE - SERUM 0.6 mg/dL (0.6-1.3); GLUCOSE 101 mg/dL (74-106); POTASSIUM - SERUM 4.3 mmol/L (3.5-5.1); PROTEIN - SERUM 4.7 g/dL (6.4-8.2); SODIUM 137 mmol/L (136-145); UREA NITROGEN 11 mg/dL (7-18); eGFR NON AFRICAN AMERICAN > 90 mL/min (90-120)
[2017-04-03 09:45] LABS: ALT (SGPT) 115 U/L (10-68)
[2017-04-03 11:04] VITALS: BP 128/76
--- NOTE | 2017-04-03 11:30 | NUR ---
CURRENT FSBS 130. NO INSULIN NEEDED PER SS.
[2017-04-03 15:22] VITALS: BP 140/71
--- NOTE | 2017-04-03 17:14 | NUR ---
CURRENT FSBS 170. 2 UNITS OF INSULIN ADMINISTERED PER SS.
--- NOTE | 2017-04-03 17:58 | NUR ---
MIDLINE TO R UPPER ARM DC'D WITH TIP INTACT. APPROXIMATELY 15CM LONG. PRESSURE APPLIED FOR 5 MINUTES. PRESSURE DRESSING APPLIED AND SECURED WITH METAPORE TAPE. BED LOW, CALL LIGHT IN REACH, DENIES NEEDS. CPOC.
[2017-04-03 20:00] VITALS: BP 117/54
--- NOTE | 2017-04-03 20:01 | NUR ---
PT LYING IN BED RECIEVEING BREATHING TX, ASSESSMENT COMPLETED, NO ACUTE DISTRESS NOTED, AND VISITOR IN ROOM, BED LOW, ALARM ON, SR'S UP X3, CL IN REACH, DENIES NEEDS AT THIS TIME, WILL MONITOR
--- NOTE | 2017-04-03 21:55 | NUR ---
MEDS GIVEN PER MAR, WILIAN WELL, FALL AND ISOLATION PRECAUTIONS IN PLACE, CL IN REACH
--- NOTE | 2017-04-03 23:40 | NUR ---
RESTING WITH EYES CLOSED, CPAP IN PLACE, NO DISTRESS NOTED, FALL AND ISOLATION PRECAUTIONS IN PLACE, CL IN REACH
--- NOTE | 2017-04-04 01:36 | NUR ---
PT INCONT OF URINE, CHANGED, CLEANSED, AND REPOSITIONED, NO ACUTE DISTRESS NOTED, FALL AND ISOLATION PRECAUTIONS IN PLACE, CL IN REACH
[2017-04-04 04:00] VITALS: BP 110/62
--- NOTE | 2017-04-04 07:30 | NUR ---
VERBALLY DISRUPTIVE, YELLING SAYING HE CAN'T BREATH SATING IN THE UPPER 90'S, CPAP ON, RAISED THE HEAD OF BED, ANXIOUS
[2017-04-04 09:21] VITALS: BP 135/82
--- NOTE | 2017-04-04 10:56 | NUR ---
AWAKE AND ALERT.ORIENTED TO SELF THIS AM. LUNGS ARE CLEAR BUT DIMINISHED IN LOWER LOBES. DRESSING TO RIGHT CLAVICAL DRY AND INTACT. AT BEDSIDE. NO NEEDS NOTED.
[2017-04-04 12:12] VITALS: BP 136/84
[2017-04-04 19:00] VITALS: BP 95/50
--- NOTE | 2017-04-04 20:08 | NUR ---
ASSESSMENT COMPLETED, PT WITH EXTREME AGITATION AND ANXIETY, PULLED DSG OFF, PACKING INTACT, COVERED WITH 4X4'S AND TAPE, CPAP IN PLACE, FALL AND SAFETY MEASURES IN PLACE, CL IN REACH, WILL MONITOR
--- NOTE | 2017-04-04 22:29 | NUR ---
MEDS GIVEN PER MAR, WILIAN WELL, EXTREMELY AGITATED, ATTEMPTED TO CALM, REPOSITIONED, SAFETY MEASURES IN PLACE, CL IN REACH, WILL MONITOR
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
[2017-04-05 04:00] VITALS: BP 109/44
[2017-04-05 06:16] LABS: BASOPHILS 0 % (0-2); EOSINOPHILS 0.3 % (0-7); HEMATOCRIT 30.2 % (42.0-54.0); HEMOGLOBIN 9.8 g/dL (13.5-17.5); IMMATURE GRANULOCYTES 0.8 % (0-5); LYMPHOCYTES 7.7 % (15-50); MCH 29.9 pg (26.0-34.0); MCHC 32.5 g/dL (31.0-37.0); MCV 92.1 fL (80.0-100.0); MEAN PLATELET VOLUME 9.2 fL (7.4-10.4); MONOCYTES 6.7 % (2-11); NEUTROPHILS 84.5 % (40-80); PLATELET COUNT 244 10x3/uL (130-400); RBC 3.28 10x6/uL (4.20-6.10); RDW 18.6 % (11.5-14.5); WBC 34.8 10x3/uL (4.8-10.8)
[2017-04-05 06:38] LABS: CALC OSMOLALITY 273 mosm/kg (275-300); CALCIUM 9.1 mg/dL (8.5-10.1); CARBON DIOXIDE 28.7 mmol/L (21.0-32.0); CHLORIDE - SERUM 103 mmol/L (98-107); CREATININE - SERUM 0.6 mg/dL (0.6-1.3); GLUCOSE 101 mg/dL (74-106); POTASSIUM - SERUM 4.1 mmol/L (3.5-5.1); SODIUM 137 mmol/L (136-145); UREA NITROGEN 12 mg/dL (7-18); eGFR NON AFRICAN AMERICAN > 90 mL/min (90-120)
--- NOTE | 2017-04-05 07:30 | NUR ---
PT CONFUSED X4 RESP EVEN AND NONLABORED PT AT BEDSIDE AND DENIES NEEDS AT THIS TIME IV TO LEFT FOREARM PATENT AND INTACT SRX2 BED AT LOWEST SETTING CALL LIGHT WITHIN REACH WILL CONTINUE TO MONITOR
[2017-04-05 07:59] VITALS: BP 117/75
[2017-04-05 11:46] VITALS: BP 120/72
[2017-04-05 15:37] VITALS: BP 118/57
[2017-04-05 18:15] LABS: APPEARANCE CLEAR (CLEAR); BILIRUBIN NEGATIVE (NEGATIVE); COLOR YELLOW (YELLOW); GLUCOSE NEGATIVE (NEGATIVE); KETONE NEGATIVE (NEGATIVE); LEUKOCYTE ESTERASE NEGATIVE (NEGATIVE); NITRITE NEGATIVE (NEGATIVE); PROTEIN NEGATIVE (NEGATIVE); UROBILINOGEN NORMAL (NORMAL)
--- NOTE | 2017-04-05 19:15 | NUR ---
RECIEVED PT LYING IN BED AWAKE, ASSESSMENT COMPLETED, NO ACUTE PHYSICAL DISTRESS NOTED, CPAP IN PLACE, LEGS ELEVATED, DSG'S CDI, CONFUSION AND ANXIETY CONTINUES TO BE SEVERE, ATTEMPT TO CALM AND REORIENT UNSUCCESSFUL, SAFETY AND CONTACT PRECAUTIONS IN PLACE, WILL MONITOR
--- NOTE | 2017-04-05 20:23 | NUR ---
MEDS GIVEN PER MAR, WILIAN WELL, DSG TO R AXILLA CHANGED PER ORDERS, WILIAN WELL, SAFETY AND ISOLATION PRECAUTIONS IN PLACE, CL IN REACH
--- NOTE | 2017-04-05 21:41 | NUR ---
RESTING WITH EYES CLOSED, CPAP IN PLACE, NO DISTRESS NOTED AT THIS TIME, WILL CONTINUE TO MONITOR
--- NOTE | 2017-04-05 23:13 | NUR ---
CONTINUES TO REST WITH EYES CLOSED, CPAP IN PLACE, NO DISTRESS NOTED AT THIS TIME, SAFETY MEASURES IN PLACE, CL IN REACH
--- NOTE | 2017-04-06 01:09 | NUR ---
CONTINUES TO REST WITH EYES CLOSED, CPAP IN PLACE, NO DISTRESS NOTED, FALL PRECAUTIONS IN PLACE, CL IN REACH
--- NOTE | 2017-04-06 03:27 | NUR ---
IV FLUIDS HUNG PER MAR, CONTINUES TO REST WITH EYES CLOSED, CPAP IN PLACE, LEGS ELEVATED, NO DISTRESS NOTED, FALL PRECAUTIONS IN PLACE, CL IN REACH
[2017-04-06 04:00] VITALS: BP 110/56
[2017-04-06 05:59] LABS: ALBUMIN 1.5 g/dL (3.4-5.0); ALKALINE PHOSPHATASE 149 U/L (46-116); ALT (SGPT) 50 U/L (10-68); BILIRUBIN - TOTAL 0.21 mg/dL (0.2-1.3); CALC OSMOLALITY 271 mosm/kg (275-300); CALCIUM 9.5 mg/dL (8.5-10.1); CARBON DIOXIDE 25.2 mmol/L (21.0-32.0); CHLORIDE - SERUM 102 mmol/L (98-107); CREATININE - SERUM 0.5 mg/dL (0.6-1.3); GLUCOSE 124 mg/dL (74-106); POTASSIUM - SERUM 4.3 mmol/L (3.5-5.1); PROTEIN - SERUM 4.9 g/dL (6.4-8.2); SODIUM 135 mmol/L (136-145); UREA NITROGEN 14 mg/dL (7-18); eGFR NON AFRICAN AMERICAN > 90 mL/min (90-120)
[2017-04-06 06:28] LABS: HEMATOCRIT 32.2 % (42.0-54.0); HEMOGLOBIN 10.5 g/dL (13.5-17.5); MCH 30.3 pg (26.0-34.0); MCHC 32.6 g/dL (31.0-37.0); MCV 92.8 fL (80.0-100.0); MEAN PLATELET VOLUME 9.9 fL (7.4-10.4); PLATELET COUNT 291 10x3/uL (130-400); RBC 3.47 10x6/uL (4.20-6.10); RDW 18.9 % (11.5-14.5); WBC 42.3 10x3/uL (4.8-10.8)
--- NOTE | 2017-04-06 06:28 | NUR ---
DSGS TO R CLAVICLE, AXCILLA AND BUTTOCKS CHANGED PER ORDERS, WILIAN WELL
[2017-04-06 06:48] LABS: LYMPHOCYTES 3 % (15-50); MONOCYTES 4 % (2-11); NEUTROPHILS 83 % (40-80)
[2017-04-06 06:49] LABS: PLATELET ESTIMATE NORMAL
--- NOTE | 2017-04-06 07:40 | NUR ---
RESTING QUIETLY, BREATING UNEVEN NOT LABORED WITH EXPIRATORY WHEEZING, CPAP ON, BED LOWEST POSITION, CALL LIGHT IN REACH, WILL CONTINUE TO MONITOR
--- NOTE | 2017-04-06 07:45 | NUR ---
SLEEPING AT THIS TIME WITH RESPIRATIONS SHALLOW AND NON LABORED. REMAINS IN ISOLATION FOR C-DIFF. HOME C-PAP UNIT ON AND IN WORKING ORDER. CALL LIGHT IN REACH AND DOOR OPEN. WILL CONTINUE WITH PLAN OF CARE.
[2017-04-06 08:30] VITALS: BP 123/79
--- NOTE | 2017-04-06 12:00 | NUR ---
TELEMETRY RUNNING 135 UNCONTROLLED A FIB, DR KAY NOTIFIED, STOPPED LISINOPRIL AND CARDIZEM, BETAPACE STARTED
[2017-04-06 12:18] VITALS: BP 109/62
--- NOTE | 2017-04-06 14:06 | NUR ---
Nutrition Follow Up: Chart reviewed. Pt is eating 42% meal avg on a reg mech soft diet with thin liquids. He is receiving vanilla Ensure with meals. +BM 04/05/17. Labs reviewed. Meds noted including 1/2 NS @ 50 ml/hr, Lasix, Humalog, Levemir, Vit C. Pt with fair po intake at this time. Rec continue current diet, supplement regimen. Will send Kermit BID to promote wound healing. RD will continue to monitor pt progress.
[2017-04-06 15:58] VITALS: BP 128/68
[2017-04-06 19:00] VITALS: BP 115/56
--- NOTE | 2017-04-06 20:48 | NUR ---
AROUSE TO VERBAL STIMULI. ALERT WIHT PERIODS OF CONFUSION. IV INFUSING RO LEFT FOREARM WIHTOUT REDNESS OR EDEMA. DRSG TO RIGHT CLAVICLE DRY INTACT.DRSG TO RIGHT AXULLARY INTACT. CL IN REACH. NO COMPLAINTS VOICED.
[2017-04-07] VITALS (57 sets, daily range): BP systolic 59–122; BP diastolic 25–98
--- NOTE | 2017-04-07 06:04 | NUR ---
TURNED AND POSITIONED FOR COMFORT. NO CHANGE IN ASSESSMENT
[2017-04-07 06:56] LABS: BASOPHILS 0.1 % (0-2); EOSINOPHILS 0 % (0-7); HEMATOCRIT 32.9 % (42.0-54.0); HEMOGLOBIN 10.2 g/dL (13.5-17.5); LYMPHOCYTES 10.1 % (15-50); MCH 29.6 pg (26.0-34.0); MCV 95.4 fL (80.0-100.0); MEAN PLATELET VOLUME 9.3 fL (7.4-10.4); MONOCYTES 4.8 % (2-11); PLATELET COUNT 263 10x3/uL (130-400); RBC 3.45 10x6/uL (4.20-6.10); WBC 49.6 10x3/uL (4.8-10.8)
[2017-04-07 07:12] LABS: CALCIUM 9.7 mg/dL (8.5-10.1); CARBON DIOXIDE 30.7 mmol/L (21.0-32.0); CHLORIDE - SERUM 105 mmol/L (98-107); GLUCOSE 107 mg/dL (74-106); MAGNESIUM - SERUM 1.6 mg/dL (1.8-2.4); POTASSIUM - SERUM 4.4 mmol/L (3.5-5.1); SODIUM 139 mmol/L (136-145)
[2017-04-07 07:18] LABS: CALC OSMOLALITY 279 mosm/kg (275-300); CREATININE - SERUM 0.7 mg/dL (0.6-1.3); UREA NITROGEN 18 mg/dL (7-18); eGFR NON AFRICAN AMERICAN > 90 mL/min (90-120)
--- NOTE | 2017-04-07 08:05 | NUR ---
ENTERED ROOM AT THIS TIME PER FLETCHER ENG REQUEST. BLOOD PRESSURE 50/25 AND HEART RATE 88 CONTROLLED A-FIB PER LOAN AUDITOR. PT IS NOT AROUSABLE TO VERBAL OR TACTILE STIMULI. RAPID RESPONSE CALLED, SEE FLOWSHEET. RESPIRATIONS SHALLOW AND LABORED. RAPID RESPONSE TEAM AT BEDSIDE.
--- NOTE | 2017-04-07 08:59 | NUR ---
PATIENT ARRIVED TO FLOOR VIA BED AFTER A RAPID RESPONSE. HE REMAINS NONRESPONSIVE. B/P UP TO 102/48. WILL GET HIM SITUTATED AND LET FAMILY IN.
--- NOTE | 2017-04-07 09:25 | NUR ---
16FR WHALEN WITH 10CC BULB PLACED USING STERILE TECHNIQUE. PATIENT REMAINS UNRESPONSIVE AT THIS TIME. RECEIVED 120CC OF PALE CLEAR YELLOW URINE. WILL CONINTUE TO MONITOR.
--- NOTE | 2017-04-07 10:00 | NUR ---
REMAINS HERE. SHE IS SPEAKING WITH DR VELAZCO. ALL QUESTIONS HAVE BEEN ANSWERED UP TO THIS POINT. HAVE ENCOURAGED HER TO CALL IF SHE WERE TO HAVE ANY OTHER.
--- NOTE | 2017-04-07 12:23 | NUR ---
HERE FOR VISITATION. NO NEW QUESTIONS AT THIS TIME. SHE IS VERY TEARFUL. SHE BROUGHT THE SUPPORT OF A FRIENT THAT HAS BEEN A CAREGIVER FOR THE PATIENT IN THE PAST. WILL REMAIN AVAILABLE IF SHE WERE TO HAVE QUESTIONS.
--- NOTE | 2017-04-07 15:48 | NUR ---
HERE FOR VISITATIONS. THIS TIME PATIENT HAS WAKEN UP MORE, STILL DOES NOT OPEN HIS EYES. HE IS TRYING TO PULL OFF HIS BYPAP AND IS MOUTHING HELP ME. BOTH HIS AND MYSELF QUESTIONED WHAT HE NEEDED HELP WITH AND ALL HE WOULD DO IS MOUTH HELP ME. SATS DECREASED FROM 97% WITH BIPAP ON TO 89% WITH THE MASK BEING OFF LESS THAN ONE MINUTE. MASK WAS REAPPLIED. PATIENT CONTINUED TO PULL AT HIS MASK AND THEN BEGAN TRYING TO PULL AT THE IV LINE IN HIS NECK. AT THIS TIME I HELD BOTH OF HIS HANDS AND EXPLAINED IN DETAIL WHERE HE WAS AND WHY HE WAS HERE. EXPLAINED THAT THE BYPAP WAS TO HELP HIM AND THAT THE LINE IN HIS NECK HAD TO BE PLACED BY ANESTHESIA SECONDARY TO HIM NOT HAVING VEINS FOR US TO PUT IV'S IN. EXPLAINED THAT WE WERE TRYING TO HELP MAKE HIM BETTER. I THEN EXPLAINED THAT IF HE WERE TO CONTINUE TO TRY TO PULL AT THINGS, I WOULD HAVE TO GET AN ORDER TO RESTRAIN HIS HANDS, WHICH MEANS THEY WOULD BE TIED DOWN. AT THIS TIME HE RELAXED HIS ARMS AND STOPPED PULLING AT THINGS. BEFORE HIS WAS DONE REMINISCING ABOUT SOME GOOD THINGS IN THEIR LIFE. AT THIS TIME SHE WAS ABLE TO SMILE AND NOT CRY. SHE STATED SHE WAS UNSURE IF SHE WOULD BE ABLE TO RETURN FOR THE 1800 VISITATION. EXPLAINED THAT WE WOULD CALL IF ANYTHING HAPPENED. SHE DENIED ANY FURTHER QUESTIONS AND LEFT THE UNIT.
--- NOTE | 2017-04-07 16:57 | NUR ---
FSBS 88. NO COVERAGE NEEDED PER SS INSULIN.
--- NOTE | 2017-04-07 17:14 | NUR ---
ATTEMPTED ORAL CARE FOR PT AND PT WOULDNT STOP PUSHING MY HANDS AWAY. PTS BOTTOM LIP IS CRACKED AND DRY TRIED AT LEAST TO APPLY MOUTH MOISTURE AND PT YANKED MY HAND DOWN. PT KEEPS MOUTHING "HELP ME" BUT CANT COMMUNICATE WHAT HE IS NEEDING. PUT BIPAP BACK ON PT AND HE PULLED IT OFF, APPLIED IT AGAIN AND RUBBED PTS HAND TO KEEP HIM CALM AND HE ALLOWED IT TO STAY IN PLACE AT THIS TIME. WILL CTM.
--- NOTE | 2017-04-07 18:09 | NUR ---
PATIENTS HEART RATE STAYING 140-168. DR. PARKS PAGED. NEW ORDERS RECEIVED.
--- NOTE | 2017-04-07 19:00 | NUR ---
REPORT RECEIVED AND ASSESSMENT COMPLETED. FAMILY AT BEDSIDE. RECEIVED PHONE NUMBER TO CALL IF CHANGES OCCUR THROUGH NIGHT. PT ON DOPAMINE 5 MCG NOREPI AT 12 MCG, AND CARDIZEM AT 5. WILL MONITOR THROUGHOUT SHIFT
--- NOTE | 2017-04-07 21:07 | NUR ---
2100 MEDS GIVEN. NO CHANGES IN STATUS AT THIS TIME. WILL CONTINUE TO MONITOR VS CLOSELY.
--- NOTE | 2017-04-07 23:00 | NUR ---
2200 OUT FROM WHALEN AT THIS TIME. PT HR HAS COME DOWN. STILL TACHYCARDIC. B/P STABLE ON NOREPI AND DOPAMINE. WILL CONTINUE TO TITRATE NEEDED.
[2017-04-08] VITALS (95 sets, daily range): BP systolic 80–133; BP diastolic 39–99
--- NOTE | 2017-04-08 00:48 | NUR ---
ANOTHER 2200 OUT OF WHALEN AT THIS TIME. WILL MONITOR FOR CHANGES IN RHYTHM AND CHECK POTASSIUM LEVEL WITH LABS.
--- NOTE | 2017-04-08 02:03 | NUR ---
NOREPI DECREASED TO 9 MCG. NO OTHER CHANGES.
--- NOTE | 2017-04-08 03:00 | NUR ---
REASSESSMENT COMPLETED. COMPLETED BED BATH AND LINEN CHANGE AT THIS TIME. NO OTHER CHANGES. VSS. WILL MONITOR
[2017-04-08 04:27] LABS: BASOPHILS 0.1 % (0-2); EOSINOPHILS 0 % (0-7); HEMATOCRIT 34.5 % (42.0-54.0); HEMOGLOBIN 10.9 g/dL (13.5-17.5); LYMPHOCYTES 5.6 % (15-50); MCH 30.1 pg (26.0-34.0); MCHC 31.6 g/dL (31.0-37.0); MCV 95.3 fL (80.0-100.0); MEAN PLATELET VOLUME 9.3 fL (7.4-10.4); MONOCYTES 2.8 % (2-11); NEUTROPHILS 90.5 % (40-80); PLATELET COUNT 278 10x3/uL (130-400); RBC 3.62 10x6/uL (4.20-6.10); WBC 53.1 10x3/uL (4.8-10.8)
[2017-04-08 04:38] LABS: ALBUMIN 1.4 g/dL (3.4-5.0); ALKALINE PHOSPHATASE 145 U/L (46-116); BILIRUBIN - TOTAL 0.39 mg/dL (0.2-1.3); CALCIUM 9.6 mg/dL (8.5-10.1); CARBON DIOXIDE 33.6 mmol/L (21.0-32.0); CHLORIDE - SERUM 110 mmol/L (98-107); CREATININE - SERUM 0.8 mg/dL (0.6-1.3); GLUCOSE 151 mg/dL (74-106); MAGNESIUM - SERUM 1.6 mg/dL (1.8-2.4); PROTEIN - SERUM 5.3 g/dL (6.4-8.2); SODIUM 148 mmol/L (136-145); eGFR NON AFRICAN AMERICAN > 90 mL/min (90-120)
[2017-04-08 04:40] LABS: ALT (SGPT) 30 U/L (10-68); CALC OSMOLALITY 300 mosm/kg (275-300); POTASSIUM - SERUM 3.4 mmol/L (3.5-5.1); UREA NITROGEN 24 mg/dL (7-18)
--- NOTE | 2017-04-08 05:28 | NUR ---
PT HAD 6650 URINE OUTPUT THROUGHOUT THE SHIFT. POTASSIUM LEVEL 3.4 WITH AM LAB AND MAG LEVEL 1.6. WILL TREAT PER PROTOCOL. VSS. WILL MONITOR FURTHER.
--- NOTE | 2017-04-08 07:00 | NUR ---
REPORT RECEIVED. ASSESSMENT COMPLETED. PATIENT MORE ACTIVE THEN YESTERDAY. STILL DOES NOT OPEN HIS EYES OR FOLLOW COMMANDS, BUT IS MOVING AROUND. WILL MONITOR.
--- NOTE | 2017-04-08 10:02 | NUR ---
Nutrition follow-up: Pt now NPO due to BIPAP mask in place and pt being nonresponsive. Labs reviewed Wt: 239# Pt is not meeting est nutritional needs at this time. Recommend starting TF - NGT vs PEG tube placement - Osmolite @ 25 ml/hr with increase to goal rate of 75 ml/hr. RDN following.
--- NOTE | 2017-04-08 10:32 | NUR ---
PATIENT IS PULLING AT HIS LINES, HAS BEEN ALL MORNING. UNABLE TO REDIRECT. BIPAP IS OFF AND N/C ON. ORDERS RECEIVED FOR RESTRAINTS.
--- NOTE | 2017-04-08 19:00 | NUR ---
REPORT RECEIVED AND ASSESSMENT COMPLETED. SEE FLOWSHEET FOR FULL DETAILS. PT IS NOW ON NOREPI AT 12. HAD [id number] OUTPUT FOR THEE LAST 24 HRS. POTASSIUM REPLACED WITH RECHECK SCHEDULED FOR 2099. WILL MONITOR THROUGHOUT SHIFT.
--- NOTE | 2017-04-08 21:00 | NUR ---
POTASSIUM 4.1 AT THIS TIME. WILL CONTINUE TO MONITOR.
--- NOTE | 2017-04-08 23:00 | NUR ---
REASSESSMENT COMPLETED. NOREPINEPHRINE NOW AT 13MCG. NO OTHER CHANGES IN STATUS AT THIS TIME.
[2017-04-09] VITALS (76 sets, daily range): BP systolic 30–113; BP diastolic 21–94
--- NOTE | 2017-04-09 01:00 | NUR ---
NO CHANGES IN STATUS AT THIS TIME. WILL MONITOR
--- NOTE | 2017-04-09 03:00 | NUR ---
REASSESSMENT COMPLETED. SEE FLOWSHEET FOR FULL DETAILS. RADIOLOGY AT BEDSIDE. WILL CONTINUE TO MONITOR FOR CHANGES
[2017-04-09 04:51] LABS: BASOPHILS 0.1 % (0-2); EOSINOPHILS 0 % (0-7); HEMATOCRIT 35.2 % (42.0-54.0); IMMATURE GRANULOCYTES 1.6 % (0-5); LYMPHOCYTES 4.8 % (15-50); MCH 30.1 pg (26.0-34.0); MCHC 31.3 g/dL (31.0-37.0); MCV 96.2 fL (80.0-100.0); MEAN PLATELET VOLUME 9.8 fL (7.4-10.4); MONOCYTES 1.6 % (2-11); NEUTROPHILS 91.9 % (40-80); PLATELET COUNT 160 10x3/uL (130-400); RBC 3.66 10x6/uL (4.20-6.10); RDW 19.2 % (11.5-14.5)
--- NOTE | 2017-04-09 05:00 | NUR ---
NOREPI AT 14 MCG. NO OTHER CHANGES IN STATUS AT THIS TIME.WILL MONITOR
[2017-04-09 05:03] LABS: ALBUMIN 1.4 g/dL (3.4-5.0); ALKALINE PHOSPHATASE 162 U/L (46-116); ALT (SGPT) 29 U/L (10-68); BILIRUBIN - TOTAL 0.39 mg/dL (0.2-1.3); CALC OSMOLALITY 318 mosm/kg (275-300); CALCIUM 9.2 mg/dL (8.5-10.1); CARBON DIOXIDE 32.7 mmol/L (21.0-32.0); CREATININE - SERUM 0.8 mg/dL (0.6-1.3); GLUCOSE 171 mg/dL (74-106); MAGNESIUM - SERUM 1.6 mg/dL (1.8-2.4); POTASSIUM - SERUM 3.9 mmol/L (3.5-5.1); PROTEIN - SERUM 5.1 g/dL (6.4-8.2); SODIUM 156 mmol/L (136-145); UREA NITROGEN 29 mg/dL (7-18); eGFR NON AFRICAN AMERICAN > 90 mL/min (90-120)
[2017-04-09 05:05] LABS: CHLORIDE - SERUM 116 mmol/L (98-107)
--- NOTE | 2017-04-09 07:00 | NUR ---
REPORT RECEIVED. ASSESSMENT COMPLETED. PATIENT WITHDRAWLS TO NOXIOUS STIMULI, BUT DOES NOT OPEN HIS EYES OR TALK. HIS B/P WAS IN THE 70'S SYSTOLIC WITH HR IN THE 140-150'S AND THEN DROPPING DOWN TO 120'S AND BACK UP. NOREPI INCREASED TO 18MCG TOTAL IN ORDER TO MAINTAIN A SBP > 97 WITH A MAP IN MID 60'S TO LOW 70'S. WILL CONTINUE TO MONITOR AND TALK WITH CARDIOLOGY IN REGARDS TO HEART RATE.
--- NOTE | 2017-04-09 10:29 | NUR ---
PATIENTS PRESSURE CONTINUES TO FALL IN SPITE OF INCREASING THE PRESSORS. LAST ONE WAS 69/54 (57) PATIENT IS ALMOST MAXED ON NOREPI AT THIS TIME. HAVE SPOKEN WITH DR MALHOTRA ABOUT ADDING VASOPRESSIN IF WE DO MAX ON THE NOREPI, VERBAL ORDER GIVEN TO ADD VASOPRESSIN. WILL CONTINUE TO MONITOR.
--- NOTE | 2017-04-09 11:29 | NUR ---
HAVE SPOKEN WITH DR WESTBROOK ABOUT PATIENTS INCREASING HEART RATE. SECONDARY TO HYPOTENSION THAT IS BEING TREATED WITH 3 PRESSORS, NO NEW ORDERS RECEIVED.
--- NOTE | 2017-04-09 12:01 | NUR ---
BROUGHT PATIENTS BACK, PATIENT IS MAXED OUT ON ALL PRESSORS AND HIS SBP IS 89 WITH A MAP OF 53. HEART RATE CONTINUES TO INCREASE. PATIENT REMAINS UNRESPONSIVE. HAVE PLACED A CHAIR AT BEDSIDE SO THAT SHE CAN HOLD HIS HAND. OFFERED TO CALL SOMEONE FOR HER. SHE STATED THAT THEY HAVE NO ONE. THAT THE NEAREST PERSON IS 6 HOURS AWAY. WILL CONTINUE TO PROVIDE SUPPORT.
--- NOTE | 2017-04-09 17:44 | NUR ---
PATIENTS HAS REQUESTED THAT ALL THE DRIPS BE STOPPED. CALL HAS BEEN PLACED TO DR MALHOTRA TO RELAY THIS INFORMATION. WILL WAIT FOR RETURN CALL.
--- NOTE | 2017-04-09 17:50 | NUR ---
SPOKE WITH DR MALHOTRA. PER WIFES REQUEST, ALL DRIPS WILL BE DC'D. PATIENTS PREACHER FRIEND HERE AND WANTS TO PRAY WITH THE PATIENT ONE LAST TIME BEFORE THEY ARE TURNED OFF. ONCE READY WILL STOP THE DRIPS.
--- NOTE | 2017-04-09 17:57 | NUR ---
ALL DRIPS STOPPED.
--- NOTE | 2017-04-09 19:00 | NUR ---
1900: Report rec'd and care assumed. Pt is currently agonal on CM with no pulse detected. Pt no breathing. Family at bedside. Dr. Meeks notified and transferred to ER .
--- NOTE | 2017-04-09 19:21 | NUR ---
192: Dr. Weston here and pt pronounced. Family remains at bedside.
--- NOTE | 2017-04-09 20:04 | NUR ---
2004: [facility] called and notifed of . Pt does not meet criteria for organ donation and was declined REF # [id number].
--- NOTE | 2017-04-09 20:30 | NUR ---
2030: Post mortem care compeleted. Right IJIV, Holcomb catheter removed at this time. [facility] notifed of request to assume care.
--- NOTE | 2017-04-09 21:40 | NUR ---
2140: Pt discharged to care of Simone CARPENTER.
--- NOTE | 2017-04-13 16:43 | NUR ---
PER CMS PROTOCOL, RESTRAINT REPORT LOGGED INTO DATA BASE.
--- NOTE | 2017-04-13 18:07 | EC ---
PATIENT:UBALDO BURDEN DATE OF SERVICE: 03/22/17 SEX: M MEDICAL RECORD: [id number] DATE OF : 47 LOCATION:[facility] D230 AGE OF PATIENT: 71 ADMISSION DATE: 03/22/17 REFERRING PHYSICIAN: INTERPRETING PHYSICIAN: ROBBIN RAM MD ECHOCARDIOGRAM REPORT ECHO CHARGES 4 ECHO COMPLETE CLINICAL DIAGNOSIS: ECHOCARDIOGRAPHIC MEASUREMENTS (adult normal given) AC root (d.<3.7cm) 3.8 LV Septum d (<1.2 cm> 1.3 Valve Excursion 1.8 LV Septum (systole) 2.2 Left Atria (s.<4.0cm> 4.3 LVPW d(<1.2cm) 1.2 RV (d.<2.3cm) 2.4 LVPW (sytole) 2.1 LV diastole(<5.6CM) 9.2 MV E-F(>70mm/sec) LV systole 7.3 LVOT Diameter 1.8 MV exc.(>10mm) Est.ejection fraction (50-75%) Pericardial Effusion N DOPPLER: LVIT A 77.0 E 125 LA RVSP 40.0 LVOT 128 AOP1/2T Asc. Ao 167 RVOT 120 RA PA 94.0 AV Gradient Peak 11.2 AV Mean 5.0 AV Area 2.5 MV Gradient Peak 5.1 MV Mean 2.1 MV Area COMMENTS: Forest Engineer: Kristyn PEREZOE Residential Treatment Counselor:1 Dr. Ram TAPE# PACS DATE OF SERVICE: 04/07/2017 FINDINGS: 1. Left ventricular chamber size is dilated. Left ventricular systolic function is markedly reduced. Overall ejection fraction in the 25% to 30% range. 2. Left atrium is enlarged at 4.3 cm. Right atrium and right ventricular chamber sizes are mildly dilated. 3. Valvular structures have normal structure and motion. 4. Doppler interrogation reveals mild tricuspid regurgitation, no other ECHOCARDIOGRAM REPORT [id number] UBALDO BURDEN valvular insufficiency or stenosis. Pulmonary systolic pressure is preserved at 40 mmHg. 5. No evidence of pericardial effusion or left ventricular thrombus. TRANSINT:[id number] Voice Confirmation ID: [id number] DOCUMENT ID: [id number] ROBBIN RAM MD at [id number] CC: [id number] DICTATION DATE: 04/07/17 1252 PLEASURE CRAFT SAILOR: 04/07/17 1519 DIS IN 04/09/17 [facility] [address] [id number]
== END 2017-04-09 19:21 | DRG 823 ==
LOC: D.ER 15:47 → D.MS 23:42 → D.ICU 04-07 08:42
PROVIDERS: Emergency Medicine; Family Medicine; General Practice; Physician Assistant; Radiology Diagnostic Radiology; Student in an Organized Health Care Education/Training Program; ADMIT Family Medicine Adult Medicine
PROC: 0W983ZZ Drainage of Chest Wall, Percutaneous Approach (ICD-10-PCS; principal; 2017-03-23)
PROC: 07B53ZX Excision of Right Axillary Lymphatic, Percutaneous Approach, Diagnostic (ICD-10-PCS; 2017-03-24)
PROC: 05HB33Z Insertion of Infusion Device into Right Basilic Vein, Percutaneous Approach (ICD-10-PCS; 2017-03-31)
PROC: B54MZZA Ultrasonography of Right Upper Extremity Veins, Guidance (ICD-10-PCS; 2017-03-31)
PROC: 0H95XZZ Drainage of Chest Skin, External Approach (ICD-10-PCS; 2017-04-02)
DX: C83.34 Diffuse large B-cell lymphoma, lymph nodes of axilla and upper limb (principal); R53.2 Functional quadriplegia; A41.9 Sepsis, unspecified organism; R65.21 Severe sepsis with septic shock; J96.02 Acute respiratory failure with hypercapnia; J96.01 Acute respiratory failure with hypoxia; M84.411A Pathological fracture, right shoulder, initial encounter for fracture; N17.9 Acute kidney failure, unspecified; L02.213 Cutaneous abscess of chest wall; L76.32 Postprocedural hematoma of skin and subcutaneous tissue following other procedure; Z66 Do not resuscitate; E83.52 Hypercalcemia; M06.9 Rheumatoid arthritis, unspecified; M10.9 Gout, unspecified; I10 Essential (primary) hypertension; R00.0 Tachycardia, unspecified; N40.0 Benign prostatic hyperplasia without lower urinary tract symptoms; L89.322 Pressure ulcer of left buttock, stage 2; L89.312 Pressure ulcer of right buttock, stage 2; R32 Unspecified urinary incontinence; E11.65 Type 2 diabetes mellitus with hyperglycemia; R41.0 Disorientation, unspecified; Y83.8 Other surgical procedures as the cause of abnormal reaction of the patient, or of later complication, without mention of misadventure at the time of the procedure